=== PATIENT | female | born 1945 | race Caucasian/White ===

== ENCOUNTER 2023-12-15 05:17 | Inpatient (IN) | payer MEDICARE, OTHER, SELFPAY ==
[2023-12-14 21:13] VITALS: BP 124/56
[2023-12-14 21:50] LABS: % Eosinophils 0.7 % (0-6); % Immature Granulocytes 0.5 % (0-0.5); % Lymphocytes 13.7 % (20.5-51.1); % Monocytes 17.7 % (1.7-9.3); % Neutrophils 67.4 % (42.2-75.2); Absolute Lymphocytes 0.8 10^3/uL (1.2-3.4); Absolute Neutrophils 3.7 10^3/uL (1.4-6.5); Mean Corp Hgb Conc. 34.3 g/dL (33.0-37.0); Mean Corpuscular Hgb 28.1 pg (27.0-31.0); Mean Platelet Volume 8.5 fL (7.4-10.4); Nucleated Red Blood Cells % 0 %; Platelet Count 244 10^3/uL (130-400); Red Blood Cell Count 4.27 10^6/uL (4.20-5.40); Red Cell Dist. Width 13.7 % (11.5-14.5); White Blood Cell Count 5.5 10^3/uL (4.8-10.8)
[2023-12-14 21:56] VITALS: BP 141/63; BMI 23.0
[2023-12-14 22:02] LABS: ALT (SGPT) 17 U/L (0-35); AST (SGOT) 30 U/L (14-36); Albumin 3.3 g/dl (3.5-5.0); Alkaline Phosphatase 149 U/L (38-126); Blood Urea Nitrogen 18 mg/dl (7-17); Calcium 8.7 mg/dl (8.4-10.2); Carbon Dioxide 32 mmol/L (22-30); Chloride 92 mmol/L (98-107); Glucose 118 mg/dl (70-99); Potassium 3.5 mmol/L (3.5-5.1); Sodium 131 mmol/L (135-145); Total Bilirubin 0.5 mg/dl (0.2-1.3); eGFR > 60.00
--- NOTE | 2023-12-14 22:10 | ED.GENMED ---
History of Present Illness
<JADEN Hirsch - Last Filed: 12/14/23 22:37>
General
Chief Complaint: Abdominal Pain
Source: patient
Exam Limitations: none
Time Seen by Provider: 12/14/23 22:08
Nursing documentation reviewed up to this point in time: agreed with
Travel History
Have you had any contact with someone who has COVID-19?: No
Do you have any symptoms of coronavirus? Fever > 100 degrees, chills, cough, shortness of breath, sore throat, loss of taste or smell, muscle aches, or headache?: No
History of Present Illness
History of Present Illness:
Patient is a 78 y/o female with PMH of metastatic lung cancer presenting for abdominal pain x 1 day. Patient states that she has a history of an umbilical hernia for the last 4-5 months. Patient states she will regularly have episodes where the
hernia bulges but it usually resolves itself. Patient admits that this time the bulge has not resolved itself and has had spontaneous episodes of pain at the area of the bulge. Patient admits that she noticed the bulge initially during the day and
then felt it continue to enlarge without going back down. Patient states the pain is not sharp and it comes and goes. Patient denies any previous episodes where the hernia was not able to go back down. Patient denies surrounding swelling, chills,
fever, ROE, CP, or SOB that has changed, N/V/D/C. Patient is currently getting treatment for metastatic lung cancer with her last round of chemo being 2 weeks ago. Patient has a history of gallbladder removal. Patient denies any smoke or alcohol use
in the last 48 hours. Patient is on Xerelto.
Past History
<JADEN Hirsch - Last Filed: 12/14/23 22:37>
Past History
ED Past Medical History: GERD, HTN, Hypothyroidism and Psychiatric (Depression)
ED Past Surgical History: Bowel resection, Cholecystectomy, Orthopedic (Braxton knee replacements), Urological (Bladder sling) and Other (Right Lumpectomy, Cataracts, Lung resection mid and lower lobe right)
Social History
Tobacco: Former smoker
Alcohol: None
Personal:
Living: with family
Review of Systems
<ST JoycelynKY - Last Filed: 12/14/23 22:37>
Review of Systems
Constitutional: Reports no symptoms
EENT: Reports no symptoms
Respiratory: Reports no symptoms
Cardiac: Reports no symptoms
ABD/GI: Reports abdominal pain and other (bulge in abdomen )
: Reports no symptoms
Musculoskeletal: Reports no symptoms
Neurological: Reports no symptoms
Endocrine: Reports no symptoms
Hematologic/Lymphatic: Reports no symptoms
Psychiatric: Reports no symptoms
Phy Exam
<Ivone Randhawaon [facility] - Last Filed: 12/14/23 22:37>
General Physical Exam
General Presentation: well appearing and no apparent distress
General Skin: warm and dry
General Habitus: normal
General Mental: alert
General Hydration: appears well hydrated
ENT Exam
ENT Exam: EOMI, pharynx normal, neck supple and normocephalic
Eye Exam
Eye Exam: PERRL, cornea clear and conjunctiva normal
Cardiovascular Exam
Cardiovascular Exam: regular rate/rhythm, no edema, no murmur and normal peripheral pulses
Pulmonary Exam
Pulmonary Exam: lungs clear, no respiratory distress, no rales, no crackles, no rhonchi, no stridor, no wheezing and no cough
Gastrointestinal Exam
Gastrointestinal Exam: no pulsatile mass, non distended, no bruit and other (palpable mass in lower abdomen that was non tender, mass was firm to palpation)
Neurological Exam
Neurological Exam: alert, oriented x3, no motor deficits and speech normal
Musculoskeletal Exam
Musculoskeletal Exam: full ROM and no edema
Skin Exam
Skin Exam: normal color, warm/dry, no rash and no petechia
Psychiatric Exam
Psychiatric Exam: normal mood/affect
<Deonte Muro DO - Last Filed: 12/15/23 02:44>
Physical Exam
Physical Exam:
Physical Exam
General: no apparent distress, not acutely ill
Neck: supple.
Heart: s1/s2 regular rate and rhythm, no murmur. equal radial pulses.
Lungs: no acute respiratory distress. clear bilaterally
Abdomen: Soft, 4 cm circular hard but not tender area inferolateral to umbilicus no skin changes no warmth no inguinal lymphadenopathy
Neuro: alert and oriented. no focal neurological deficits
Skin: no rash
Psychiatric: well kept. interactive and cooperative
Extremities: no edema.
Course
<ST JoycelynPA - Last Filed: 12/14/23 22:37>
Orders/Labs/Results
Orders:
Orders
12/14/23 21:42
CMP [Comprehensive Metabolic Panel] Urgent
Complete Blood Count/With Diff Urgent
12/14/23 22:52
CT Abd/pelvis W Iv Cont Urgent
Comment:
Reason For Exam: pain hernia vs met
0.9% Sodium Chloride 1000 ml [Nss] 1,000 ml IV BOLUS
12/15/23 01:38
Tramadol HCl [Ultram] 50 mg PO NOW STA
12/15/23 02:09
HYDROmorphone [Dilaudid] 0.5 mg IV NOW STA
Ondansetron Injectable [Zofran] 4 mg IV NOW STA
Abnormal Lab Results
12/14/23
21:42
Hct 35.0 L %
(37.0-47.0)
Absolute Lymphs (auto) 0.8 L 10^3/uL
(1.2-3.4)
Absolute Monos (auto) 1.0 H 10^3/uL
(0.1-0.6)
Lymphocytes % 13.7 L %
(20.5-51.1)
Monocytes % 17.7 H %
(1.7-9.3)
Sodium 131 L mmol/L
(135-145)
Chloride 92 L mmol/L
(98-107)
Carbon Dioxide 32 H mmol/L
(22-30)
BUN 18 H mg/dl
(7-17)
Creatinine 0.5 L mg/dL
(0.6-1.0)
Glucose 118 H mg/dl
(70-99)
Alkaline Phosphatase 149 H U/L
(38-126)
Total Protein 6.0 L g/dl
(6.3-8.2)
Albumin 3.3 L g/dl
(3.5-5.0)
12/14/23 21:42
12/14/23 21:42
Vital Signs
Initial and Last Documented VS:
Initial Vital Signs
Temp Pulse Resp BP Pulse Ox
97.5 F 56 24 124/56 98
12/14/23 21:13 12/14/23 21:13 12/14/23 21:13 12/14/23 21:13 12/14/23 21:13
Last Documented Vital Signs
Temp Pulse Resp BP Pulse Ox
97.5 F 56 24 147/93 96
12/14/23 21:13 12/14/23 21:13 12/14/23 21:13 12/15/23 02:00 12/15/23 02:00
Joaolt;Deonte Muro, DO - Last Filed: 12/15/23 02:44>
Orders/Labs/Results
Orders:
Orders
12/14/23 21:42
CMP [Comprehensive Metabolic Panel] Urgent
Complete Blood Count/With Diff Urgent
12/14/23 22:52
CT Abd/pelvis W Iv Cont Urgent
Comment:
Reason For Exam: pain hernia vs met
0.9% Sodium Chloride 1000 ml [Nss] 1,000 ml IV BOLUS
12/15/23 01:38
Tramadol HCl [Ultram] 50 mg PO NOW STA
12/15/23 02:09
HYDROmorphone [Dilaudid] 0.5 mg IV NOW STA
Ondansetron Injectable [Zofran] 4 mg IV NOW STA
Abnormal Lab Results
12/14/23
21:42
Hct 35.0 L %
(37.0-47.0)
Absolute Lymphs (auto) 0.8 L 10^3/uL
(1.2-3.4)
Absolute Monos (auto) 1.0 H 10^3/uL
(0.1-0.6)
Lymphocytes % 13.7 L %
(20.5-51.1)
Monocytes % 17.7 H %
(1.7-9.3)
Sodium 131 L mmol/L
(135-145)
Chloride 92 L mmol/L
(98-107)
Carbon Dioxide 32 H mmol/L
(22-30)
BUN 18 H mg/dl
(7-17)
Creatinine 0.5 L mg/dL
(0.6-1.0)
Glucose 118 H mg/dl
(70-99)
Alkaline Phosphatase 149 H U/L
(38-126)
Total Protein 6.0 L g/dl
(6.3-8.2)
Albumin 3.3 L g/dl
(3.5-5.0)
12/14/23 21:42
12/14/23 21:42
Vital Signs
Initial and Last Documented VS:
Initial Vital Signs
Temp Pulse Resp BP Pulse Ox
97.5 F 56 24 124/56 98
12/14/23 21:13 12/14/23 21:13 12/14/23 21:13 12/14/23 21:13 12/14/23 21:13
Last Documented Vital Signs
Temp Pulse Resp BP Pulse Ox
97.5 F 56 24 147/93 96
12/14/23 21:13 12/14/23 21:13 12/14/23 21:13 12/15/23 02:00 12/15/23 02:00
<Deonte Muro DO - Last Filed: 12/15/23 02:44>
Other
Indication for procedure:: Symptomatic umbilical hernia
Procedure completed by: Jina
Consent form signed: No
Additional Procedure:
Verbal consent timeout ice pack reverse Trendelenburg Dilaudid analgesia multiple times with direct pressure
Unable to reduce the hernia patient has a fair amount of pain
Attempts aborted
<JADEN Hirsch - Last Filed: 12/14/23 22:37>
MDM/Problems Addressed
Differential Diagnosis Includes:
strangulated hernia
incarcerated hernia
metastatic cancer complication
MDM/Problems Addressed:
abdominal pain
Chronic conditions affecting care: Cancer (lung)
<JADEN Hirsch - Last Filed: 12/14/23 22:37>
*Critical Care Note
Total Time (30-74mins, 75-104mins- exclusive of procedures): Not Applicable
<Deonte Muro DO - Last Filed: 12/15/23 02:44>
Update Note
Update Note:
2:30 AM able to reduce hernia,
Reviewed with hospitalist and general surgery, will keep in the ER reattempt around 6 AM for reduction
Keep her n.p.o.
ED Attending Note
<JADEN Hirsch - Last Filed: 12/14/23 22:37>
-
Portions of this chart may have been created with voice recognition software.� Occasional wrong word or��sound alike� substitutions may have occurred due to the inherent limitations of voice recognition software.
<Deonte Muro, DO - Last Filed: 12/15/23 02:44>
ED Attending Note
Patient seen and examined by attending physician: Yes
I performed the substantive portion of visit, reviewed & personally made and approve the management plan that is documented in note by myself or PEDRO.: Yes
ED Attending Note:
Seen with student examined independently, metastatic lung cancer patient on chemo and immunotherapy at [facility] but not particularly tender area around her umbilicus that it was a hernia no vomiting moving her bowels okay no fever patient is
well-appearing not acutely ill not sure this represents a hernia perhaps a metastasis will check CT scan to define anatomy
Discharge Plan
Departure
Prescriptions:
No Action
metoprolol succinate 50 mg Tablet Extended Release 24 Hr
50 mg PO BID
prochlorperazine maleate 10 mg Tablet
10 mg PO QID PRN (Reason: nausea/vomiting)
Hold Instructions: Resume on 08/25/23. Discuss with your primary care provider before deciding to resume this medication.
lidocaine-prilocaine 2.5-2.5 % Cream
1 applic TOPICAL DAILYPRN PRN (Reason: mild pain)
acetaminophen 650 mg Tablet Extended Release
650 mg PO DAILY
levothyroxine 125 mcg Tablet
125 mcg PO DAILY
omeprazole 20 mg Capsule,Delayed Release(Dr/Ec)
20 mg PO DAILY
Hold Instructions: Resume on 08/25/23. This medication is on hold due to low magnesium. Please check with your primary care provider if and when you can resume this medication.
gabapentin 100 mg Capsule
300 mg PO BID
oxybutynin chloride 5 mg Tablet
5 mg PO DAILY
Hold Instructions: Resume on 08/18/23. Discuss this with your primary care physician before deciding whether or not to resume this medication
escitalopram oxalate 10 mg Tablet
10 mg PO DAILY
bupropion HCl 300 mg Tablet Extended Release 24 Hr
300 mg PO DAILY
Xarelto 15 mg Tablet
15 mg PO QPM
Magic Mouthwash
5 ml PO Q6HPRN PRN (Reason: mouth sores)
furosemide 40 mg Tablet
40 mg PO DAILY Qty: 30 1RF
levofloxacin 500 mg Tablet
500 mg PO DAILY Qty: 6 0RF
Rx Instructions:
Start date is August 05, 2023
magnesium oxide 500 mg Tablet
500 mg PO DAILY Qty: 30 0RF
valsartan 320 mg Tablet
160 mg PO DAILY Qty: 30 1RF
Referrals:
UNKNOWN - PT DOES,NOT KNOW [Family Provider] -
Interventions
Interventions:
*Risk Screen - Suicide Last Done: 12/14/23 21:56
*General Assessment Last Done: 12/14/23 21:56
ED- Fall Risk Assessment Last Done: 12/14/23 21:56
*ED COVID-19 Vaccine History Last Done: 12/14/23 21:56
BF-Pyulxt-Wfuqyvclyd Assessment Last Done: 12/14/23 21:56
[2023-12-14 23:00] VITALS: BP 131/75
[2023-12-15] VITALS (18 sets, daily range): BP systolic 104–150; BP diastolic 61–110
[2023-12-15] MEDS: NSS 1000 IV ×2 (00:01→05:43)
[2023-12-15] MEDS: ULTRAM 50 MG PO (01:42)
[2023-12-15] MEDS: DILAUDID 0.5 MG IV (02:13)
[2023-12-15] MEDS: ZOFRAN 4 MG IV ×2 (02:13→10:40)
--- NOTE | 2023-12-15 03:02 | HPS.HSE ---
Family Physician
-
Family Physician: NOT KNOW UNKNOWN - PT DOES
Chief Complaint
-
abdominal paiin associated with umbilical hernia
History of Present Illness
78M HX with known periumbilical hernia, metastatic NSCL Ca , HX HFpEF, Prx AF on Xarelto pw acute intermittent colicky abdominal pain x 1 day. Reports intemittent bulging of periumbilical hernia usually resolves itself.
He came to ER coz noted abdominal pain around the hernia which has not resoled like before.
Denied N/V
Medical History
Past Medical History
Past Medical History: Reports Other
Additional Past Medical History:
Lung Cancer s/p right lower lobe lobectomy
Right pleural effusion
HFpEF
Anemia
HX lateral right fourth and fifth rib fractures
Paroxysmal Atrial fibrillation on Eliquis
Hypothyroidism
Essential hypertension
HX breast cancer - treated with lumpectomy/radiation
Overactive bladder
Anxiety/depression
Past Surgical History: Reports Other
Additional Past Surgical History:
Bladder Sling Surgery
Right Lumpectomy
Right Middle / Lower Lobectomies (February 2023)
Cholecystectomy
Tubal Ligation
Bilateral TKA
Social History
Tobacco: Former Smoker (Quit smoking in 1988. Approx 20 pack years total use.))
Alcohol: None
Drug: None
Family History
Family History: Other (Father: CVA, Esophageal Cancer Sister: DM))
Allergies / Home Medications
Allergies reflects when Allergies were last updated in [email or web address].
Home Medications with original date entered in [email or web address]
Allergy/Medication List:
Allergies
Allergy/AdvReac Type Severity Reaction Status Date / Time
morphine Allergy Unknown Verified 12/14/23 21:17
Penicillins Allergy Rash Verified 12/14/23 21:17
Home Medications
Magic Mouthwash 5 ml PO Q6HPRN PRN mouth sores 08/01/23
acetaminophen 650 mg tablet,extended release 650 mg PO DAILY Pain 08/01/23
bupropion HCl 300 mg 24 hr tablet, extended release 300 mg PO DAILY Depression 08/01/23
escitalopram oxalate 10 mg tablet 10 mg PO DAILY Depression 08/01/23
gabapentin 100 mg capsule 300 mg PO BID Neurological Condition 08/01/23
levothyroxine 125 mcg tablet 125 mcg PO DAILY Thyroid 08/01/23
lidocaine-prilocaine 2.5 %-2.5 % topical cream 1 applic topical DAILYPRN PRN mild pain 08/01/23
metoprolol succinate 50 mg tablet,extended release 24 hr 50 mg PO BID Heart Failure 08/01/23
omeprazole 20 mg capsule,delayed release 20 mg PO DAILY Gastrointestinal Issue 08/01/23
oxybutynin chloride 5 mg tablet 5 mg PO DAILY Urinary Issue 08/01/23
prochlorperazine maleate 10 mg tablet 10 mg PO QID PRN nausea/vomiting 08/01/23
rivaroxaban 15 mg tablet (Xarelto) 15 mg PO QPM Blood Clot Prevention/Tx 08/01/23
furosemide 40 mg tablet 40 mg PO DAILY #30 tabs 08/04/23
levofloxacin 500 mg tablet 500 mg PO DAILY #6 tabs 08/04/23
magnesium oxide 500 mg PO DAILY #30 tabs 08/04/23
valsartan 320 mg tablet 160 mg PO DAILY Blood Pressure #30 tabs 08/04/23
Review of Systems
-
Constitutional: Reports No Symptoms
EENT: Reports No Symptoms
Respiratory: Reports No Symptoms
Cardiac: Reports No Symptoms
Abdomen/GI: Reports See HPI and Abdominal Pain; Denies Nausea, Vomiting or Diarrhea
: Reports No Symptoms
Musculoskeletal: Reports No Symptoms
Skin: Reports No Symptoms
Neurological: Reports No Symptoms
Endocrine: Reports No Symptoms
Hematologic/Lymphatic: Reports No Symptoms
Psych: Reports No Symptoms
Physical Exam
Vital Signs
Vital Signs
Temp Pulse Resp BP Pulse Ox
97.5 F 56 24 147/93 96
12/14/23 21:13 12/14/23 21:13 12/14/23 21:13 12/15/23 02:00 12/15/23 02:00
Physical Exam
General: No Apparent Distress, Comfortable, Conversant and Other (see below )
HEENT: NormoCephalic, Anicteric and Moist mucous membranes
Respiratory: Clear; No Wheezes, Rales or Rhonchi
Cardiac: S1/S2 and Regular Rhythm
Breast: Deferred by me
GI: Other (Palpable very firm mass in lower abdomen- non tender)
Rectal: Deferred by Provider
Genito-urinary: Deferred by me
Musculoskeletal: No Edema
Skin: Warm
Neuro: AO x 3 and Nonfocal/grossly intact
Psych: Calm
Laboratory Results
-
12/14/23 21:42
12/14/23 21:42
Laboratory Results
Total Bilirubin 0.5 mg/dl (0.2-1.3) 12/14/23 21:42
AST 30 U/L (14-36) 12/14/23 21:42
ALT 17 U/L (0-35) 12/14/23 21:42
Alkaline Phosphatase 149 U/L (38-126) H 12/14/23 21:42
Data Reviewed
-
CT Scan: Report Reviewed by me
Lab Data: Labs Reviewed by me
Old Records: Reviewed
Impression/Plan
-
Reviewed VS: unremarkable
Data
nl WCC Hgb 12 Plt 245
na 11 Cl 92 CO2 [address] AP
- segment prox ascending colon/cecum with stool extending through the periumblical hernia with neckof 3cm
- No definitive obstruction
- mild wall thickening but not stranding
Last hospitalist admission: 08/01/23 - 08/04/23 Acute hypoxic respiratory insufficiency
ASSESSMENT & PLAN
Pending Rx reconciliation
Symptomatic periumbilical hernia: Failed attempted reduction by ER
- No definitive obstruction , mild wall thickening but not stranding
- last dose of Xarelto was Sun around 11 pm ( Xarelto half life is about 10hrs for adult)
- Held Xarelto
- Surgery consulted - plan is GS will evaluate in AM at ER
- Keep NPO except Meds and IVF
Prx AF on xarelto
- Held Xarelto in case reduction in the OR is indicated
- cont. Metoprol sux
HX HFpEF
Primary HTN
- cont. Valsartan, Metoprolol sux
NSCLCa HX
- f/u [facility]
- Last chemo was weeks ago
Hypothyroidism
- cont. LT4
Anxiety / Depression
- cont. outpatient medications.
Right Sided Rib Fractures (4/5)
- ? acuity / timing. No recent trauma or injury per patient.
- No significant pain with deep breathing, etc.
- Follow for any new complaints / issues.
DVT Prophylaxis: SCD while holding Xarelto
Full code
Obs MS
[2023-12-15] MEDS: DILAUDID 0.25 MG IV ×2 (05:48→21:02)
[2023-12-15 06:44] LABS: INR 1.07; PT 13.8 Sec (11.4-14.6)
--- NOTE | 2023-12-15 07:15 | CON.GS ---
Medical History
-
Chief Complaint: Krystyna-umbilical pain
History of Present Illness:
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
mastectomy and radiation, s/p bilateral TKA, s/p laparoscopic cholecystectomy, s/p laparoscopic assisted partial colectomy for diverticulitis. Ms. Enriquez states that she has had a known periumbilical/incisional hernia for months. Difficult to
determine if this was reducible, though she had no pain or discomfort associated with this bulge. Over the past 24 hours she has noticed increased size of her bulge as well as abdominal pain. She denies any nausea or vomiting. No fevers or
chills. She continues to pass flatus and stools.
Of note, she receives her oncologic care at [facility]. She is currently on an immunologic drug (unknown name), last infusion approximately 1 week ago.
Past Medical History
Past Medical History: Cancer (Lung and breast), CHF, GERD, HTN and Hypothyroidism
Past Surgical History: Bowel Resection (Laparoscopic-assisted partial colectomy for diverticulitis), Cholecystectomy, Gynecological (Bladder sling, tubal ligation) and Orthopedic (Bilateral TKA)
Social History
Tobacco: Former Smoker
Alcohol: None
Drug: None
Living: With Family
Family History
Family History: Reviewed & Not Pertinent
Allergies / Home Medications
Allergy/AdvReac Type Severity Reaction Status Date / Time
morphine Allergy Unknown Verified 12/14/23 21:17
Penicillins Allergy Rash Verified 12/14/23 21:17
Medication Instructions Recorded Confirmed Type
Magic Mouthwash 5 ml PO Q6HPRN PRN mouth sores 08/01/23 12/15/23 History
acetaminophen 650 mg 650 mg PO DAILY Pain 08/01/23 12/15/23 History
tablet,extended release
bupropion HCl 300 mg 24 hr tablet, 300 mg PO DAILY Depression 08/01/23 12/15/23 History
extended release
escitalopram oxalate 10 mg tablet 10 mg PO DAILY Depression 08/01/23 12/15/23 History
gabapentin 100 mg capsule 300 mg PO BID Neurological 08/01/23 12/15/23 History
Condition
levothyroxine 125 mcg tablet 125 mcg PO DAILY Thyroid 08/01/23 12/15/23 History
lidocaine-prilocaine 2.5 %-2.5 % 1 applic topical DAILYPRN PRN mild 08/01/23 12/15/23 History
topical cream pain
metoprolol succinate 50 mg 50 mg PO BID Heart Failure 08/01/23 12/15/23 History
tablet,extended release 24 hr
omeprazole 20 mg capsule,delayed 20 mg PO DAILY Gastrointestinal 08/01/23 12/15/23 History
release Issue
oxybutynin chloride 5 mg tablet 5 mg PO DAILY Urinary Issue 08/01/23 12/15/23 History
prochlorperazine maleate 10 mg 10 mg PO QID PRN nausea/vomiting 08/01/23 12/15/23 History
tablet
rivaroxaban 15 mg tablet (Xarelto) 15 mg PO QPM Blood Clot 08/01/23 12/15/23 History
Prevention/Tx
furosemide 40 mg tablet 40 mg PO DAILY #30 tabs 08/04/23 12/15/23 Rx
levofloxacin 500 mg tablet 500 mg PO DAILY #6 tabs 08/04/23 12/15/23 Rx
magnesium oxide 500 mg PO DAILY #30 tabs 08/04/23 12/15/23 Rx
valsartan 320 mg tablet 160 mg PO DAILY Blood Pressure #30 08/04/23 12/15/23 Rx
tabs
Review of Systems
-
A 10 point review of systems was completed, and was negative except as per HPI.
Physical Exam
Vital Signs
Temp Pulse Resp BP Pulse Ox
97.5 F 104 14 104/76 96
12/14/23 21:13 12/15/23 06:41 12/15/23 06:41 12/15/23 06:41 12/15/23 02:00
12/14/23 12/15/23 12/16/23
06:59 06:59 06:59
Actual Weight 60.7 kg
Body Mass Index (BMI) 23.0
Lab Results
12/14/23 21:42
12/14/23 21:42
WBC 5.5 10^3/uL (4.8-10.8) 12/14/23 21:42
Hgb 12.0 g/dL (12.0-16.0) 12/14/23 21:42
Hct 35.0 % (37.0-47.0) L 12/14/23 21:42
Plt Count 244 10^3/uL (130-400) 12/14/23 21:42
Abs Immat Gran (auto) 0.0 10^3/uL (0-0.05) 12/14/23 21:42
Neutrophils % 67.4 % (42.2-75.2) 12/14/23 21:42
Physical Exam
General: Well Developed, Well Nourished and No Apparent Distress
HEENT: Normocephalic and Anicteric
Respiratory: Non Labored Respirations
Cardiac: Irregular Rhythm
GI: Soft, Non Distended, Tender (Overlying hernia), Incisions (Well healed), Obese and Other (Incisional hernia measuring 5 cm, firm, no skin changes, unable to reduce, fascial defect 3 cm, tender to palpation)
Musculoskeletal: No Edema
Skin: Warm and Dry
Neuro: Nonfocal/Grossly Intact
Data Reviewed
-
CT Scan: Image Personally Visualized and interpreted and Report Reviewed by me
Labs: Labs Reviewed by me
Assessment / Plan
-
Patient is a 78 yo F p/w incarcerated possibly strangulated ventral incisional hernia containing cecum
The natural history and pathophysiology of hernias was discussed. CT scan imaging was reviewed. Given the firmness and pain, as well as presence of bowel, and concern for incarceration or strangulation recommend urgent operative intervention.
Patient is at increased risk for operative complications given her general medical condition, coagulopathy, and immunosuppression. A nonoperative approach would likely result in bowel obstruction, ischemia, and potential perforation with sepsis.
Plan for an exploratory laparotomy, possible bowel resection, and ventral incisional hernia repair. The procedure itself, as well as the risks, benefits, and alternatives was discussed. Specifically, we discussed the risks of bleeding (increased
risk with Xarelto), infection (increased risk with immunosuppression), injury to surrounding structures, anastomotic leak, wound complications, recurrent hernia, and general anesthetic complications. Typical postprocedural recovery including pain
management, the need for 4 weeks no heavy lifting, and the delayed time to recovery given her age and general medical condition was discussed. All questions answered. Consent signed.
Attempted to call daughter for an update, no response.
-- Exploratory laparotomy, possible bowel resection, and ventral incisional hernia repair
-- NPO, IVF
-- Antibiotics: Levaquin and Flagyl
-- Continue to hold Xarelto
-- Admit to hospital service postoperatively
--- NOTE | 2023-12-15 07:28 | W.SUR.PREOP ---
Pre-Operative Surgical Note
-
I have examined this patient prior to the performance of the scheduled procedure.
The patient's condition is unchanged from the time of the current History and
Physical and the patient is able to undergo the scheduled procedure.
--- NOTE | 2023-12-15 09:23 | W.IMMPOSTOP ---
Addendum entered and electronically signed by Jose E Diaz MD 12/15/23 17:31:
Dic#[id number]
Original Note:
Surgical Immed Post Op Note
-
Primary Surgeon: Emily
Assisting Surgeon: Ashley
Pre-op Diagnosis: Incarcerated ventral incisional hernia
Post-op Diagnosis: Incarcerated ventral incisional hernia
Procedure Performed: Exploratory laparotomy, partial cecectomy and appendectomy, primary repair of ventral incisional hernia
Anesthesia Type: General
Specimen / Cultures:
1. Partial cecectomy and appendectomy
Estimated Blood Loss: 3 cc
Complications: None
Operative Findings:
1. Viable portion of cecum, rock hard stool within hernia contents
2. Appendectomy and partial cecectomy with MARINA 100 blue load stapler, IC valve intact
3. Fascia defect of hernia 3 cm, primary closure with #1 PDS
--- NOTE | 2023-12-15 14:03 | W.PN.HOSP.TC ---
Today's Communication/Plan
-
EKG
CXR
Post op care
Assessment / Plan
Assessment / Plan
78-year-old female likely hernia admitted with abdominal pain. Seen in PACU post surgery.
Denies any shortness of breath or chest pain awake alert oriented
Cardiovascular system S1-S2 appreciated
Chest clear to auscultation
Abdomen -laparotomy wound with mild shadowing on the dressing
No bowel sounds are present
No pedal edema
Neuro appears to be nonfocal exam
# Incarcerated ventral hernia-exploratory laparotomy, partial seek ectomy and appendectomy, primary repair of ventral incisional hernia by 12/15/2023
Okay for p.o. medicines
Xarelto on hold.
High risk for bleeding as the last dose of Xarelto was 12/13/2023 evening
Monitor closely
# Hyponatremia-hypertonic fluid while n.p.o.
Follow sodium if continues to be lower needs serum and urine osmolality and urine sodium tomorrow
# Chronic heart failure with preserved ejection fraction-continue with statin, metoprolol
Hold Lasix today.
Echo 08/03/2020 LV size function. EF 66%. Stage II diastolic dysfunction. Thickened mitral valves. Mitral valve-moderate MR. Mild TR. Pulmonary artery pressure 48 mmHg.
# Paroxysmal atrial fibrillation-continue beta-juan m. Hold Xarelto until cleared by surgeon
# Depression/anxiety-continue Wellbutrin
Lexapro has not been restarted
# Non-small cell lung cancer s/p R lower lobectomy and chemotherapy followed at [facility].
Last immunotherapy was a week ago.
Multiple hepatic metastasis, bilateral adrenal nodules concerning for adrenal metastasis.
Get records from [place]
# Small right pleural effusion-check chest x-ray

# Hypertension-metoprolol and valsartan
# Hypothyroidism-continue Synthroid
# Overactive bladder-oxybutynin
# Wedge-shaped focus of hypoattenuation within the spleen, which may represent prior splenic infarct or less likely splenic metastasis.
# History of diverticulitis status post colon resection
# History of breast cancer status postlumpectomy/radiation
# History of migraines
# Sleep apnea-CPAP intolerant
# Hypoalbuminemia
# DDD/Arthritis
# Ex Smoker
# DVT Prophylaxis-Lovenox
# Full CODE
D/W MOBILE NURSE
Called Daughter Rylee - Went to message - [employer] call tomorrow.
Anticipated Discharge: > 48 hours
Subjective/Interval History
-
Date of Service: December 15, 2023
Objective Data
-
Labs:
Laboratory Results
12/15/23
05:41
PT 13.8
INR 1.07
Vital Signs:
Vital Signs
Temp Pulse Resp BP Pulse Ox
98.2 F 115 16 135/69 97
12/15/23 13:48 12/15/23 13:48 12/15/23 13:48 12/15/23 13:48 12/15/23 13:48
I&O
12/14/23 12/15/23 12/16/23
06:59 06:59 06:59
Intake Total 400 / 400
Output Total 200 / 200
Balance 200 / 200
--- NOTE | 2023-12-15 16:00 | PTCARENOTE ---
pt admitted to room 2100 from the PACU at 1345. pt arrived via bed. pt oriented to room, call franklin and plan of care. pt drowsy but easily arousable. midline abdominal incision w/aqua cell dressing with old drainage noted. afib w/HR in 110's on
telemetry. will observe.
[2023-12-15] MEDS: D5/0.9% SODIUM CHLORIDE 1000 IV (16:06)
[2023-12-15] MEDS: WELLBUTRIN XL (24 hour extended release) 300 MG PO (16:06)
[2023-12-15] MEDS: MAGNESIUM OXIDE 500 MG PO (16:06)
[2023-12-15] MEDS: PROTONIX IV 40 MG IV (16:07)
[2023-12-15] MEDS: NSS (PRESERVATIVE FREE) 10 ML IV (16:07)
[2023-12-15] MEDS: TOPROL XL 50 MG PO (20:35)
[2023-12-15] MEDS: NEURONTIN 300 MG PO (20:35)
[2023-12-16 03:26] VITALS: BP 123/82
[2023-12-16] MEDS: DILAUDID 0.25 MG IV ×3 (03:29→20:05)
[2023-12-16 05:12] LABS: Hematocrit 34.3 % (37.0-47.0); Hemoglobin 11.4 g/dL (12.0-16.0); Mean Corp Hgb Conc. 33.2 g/dL (33.0-37.0); Mean Corpuscular Hgb 28.3 pg (27.0-31.0); Mean Corpuscular Volume 85.1 fL (81.0-99.0); Platelet Count 253 10^3/uL (130-400); Red Blood Cell Count 4.03 10^6/uL (4.20-5.40); Red Cell Dist. Width 14.1 % (11.5-14.5); White Blood Cell Count 9.1 10^3/uL (4.8-10.8)
[2023-12-16 05:20] VITALS: BMI 23.8
[2023-12-16 05:39] LABS: Blood Urea Nitrogen 10 mg/dl (7-17); Carbon Dioxide 29 mmol/L (22-30); Chloride 97 mmol/L (98-107); Estimated Creatinine Clearance 67 ml/min; Glucose 95 mg/dl (70-99); Magnesium 1.3 mg/dl (1.6-2.3); Potassium 3.6 mmol/L (3.5-5.1); Sodium 132 mmol/L (135-145); eGFR > 60.00
[2023-12-16] MEDS: SYNTHROID 125 MCG PO ×2 (06:06)
[2023-12-16 07:00] VITALS: BP 116/66
--- NOTE | 2023-12-16 08:03 | W.PN.HOSP.TC ---
Addendum entered and electronically signed by Derick Gomez MD 12/16/23 17:44:
updated daughter over the phone today
Original Note:
Today's Communication/Plan
-
cont postop care
Assessment / Plan
Assessment / Plan
78-year-old female likely hernia admitted with abdominal pain found incarcerated hernia s/p surgery.
Physical exam:
General: Well Developed, Well Nourished and No Apparent Distress
HEENT: Normocephalic, Atraumatic and Moist Mucous Membranes
Respiratory: Clear to Auscultation; Negative Wheezes, Rales or Rhonchi
Cardiac: Regular Rhythm and S1/S2
GI: Soft, Mild Tender and Nondistended, postop findings, BS hypoactive
Musculoskeletal: No Clubbing, No Cyanosis and No Edema
Neuro: Awake, Alert and Oriented
Psych: Calm
A/P:
# Incarcerated ventral hernia-exploratory laparotomy, partial cecectomy and appendectomy, primary repair of ventral incisional hernia by 12/15/2023
Okay for p.o. medicines
Xarelto on hold.
High risk for bleeding as the last dose of Xarelto was 12/13/2023 evening
Mild drift down to hemoglobin from 12 down 11.4 but no signs of active bleeding
Monitor closely
# Hyponatremia-hypertonic/isotonic fluid while n.p.o.
improving from 131 up to 132
Follow sodium
# Chronic heart failure with preserved ejection fraction-continue with statin, metoprolol
Hold Lasix today.
Echo 08/03/2020 LV size function. EF 66%. Stage II diastolic dysfunction. Thickened mitral valves. Mitral valve-moderate MR. Mild TR. Pulmonary artery pressure 48 mmHg.
# Paroxysmal atrial fibrillation-continue beta-juan m. Hold Xarelto until cleared by surgeon
# Depression/anxiety-continue Wellbutrin
Lexapro has not been restarted
# Non-small cell lung cancer s/p R lower lobectomy and chemotherapy followed at [facility].
Last immunotherapy was a week ago.
Multiple hepatic metastasis, bilateral adrenal nodules concerning for adrenal metastasis.
Get records from [place]
# Small right pleural effusion-check chest x-ray

# Hypertension-metoprolol and valsartan
# Hypothyroidism-continue Synthroid
# Overactive bladder-oxybutynin
# Wedge-shaped focus of hypoattenuation within the spleen, which may represent prior splenic infarct or less likely splenic metastasis.
# History of diverticulitis status post colon resection
# History of breast cancer status postlumpectomy/radiation
# History of migraines
# Sleep apnea-CPAP intolerant
# Hypoalbuminemia
# DDD/Arthritis
# Ex Smoker
# DVT Prophylaxis-Lovenox
# Full CODE
Anticipated Discharge: 24 - 48 hours
Subjective/Interval History
-
Date of Service: December 16, 2023
Patient with abdominal discomfort postsurgical site, no nausea or vomiting. Has not passed any gases today. Afebrile
Objective Data
-
Labs:
Laboratory Results
12/16/23
04:31
WBC 9.1
Hgb 11.4 L
Hct 34.3 L
Plt Count 253
Sodium 132 L
Potassium 3.6
Chloride 97 L
Carbon Dioxide 29
BUN 10
Creatinine 0.5 L
Glucose 95
Calcium 8.0 L
Vital Signs:
Vital Signs
Temp Pulse Resp BP Pulse Ox
98.3 F 112 18 123/82 94
12/16/23 03:26 12/16/23 03:26 12/16/23 03:26 12/16/23 03:26 12/16/23 03:26
I&O
12/15/23 12/16/23 12/17/23
06:59 06:59 06:59
Intake Total 1120 / 1120
Output Total 825 / 825
Balance 295 / 295
Review of Systems
-
All other systems: Reviewed and negative
[2023-12-16] MEDS: NEURONTIN 300 MG PO ×2 (08:20→19:56)
[2023-12-16] MEDS: DITROPAN PO ×2 (08:21→10:31)
[2023-12-16] MEDS: TOPROL XL 50 MG PO ×2 (08:21→19:56)
[2023-12-16] MEDS: MAGNESIUM OXIDE 500 MG PO (08:21)
[2023-12-16] MEDS: DIOVAN PO ×2 (08:21→10:32)
[2023-12-16] MEDS: PROTONIX IV 40 MG IV (08:22)
[2023-12-16] MEDS: NSS (PRESERVATIVE FREE) 10 ML IV (08:22)
[2023-12-16] MEDS: WELLBUTRIN XL (24 hour extended release) 300 MG PO (08:26)
--- NOTE | 2023-12-16 10:16 | CM ---
Addendum entered by Otf Linares 12/16/23 10:36:
Pharmacy is [facility] and PCP is Gricelda Buckley in [place].
Original Note:
Initial assessment completed with patient who lives also in a 1 floor garage apartment on her daughter's property. She has a rollator and RW which she uses and a SC. She does not drive. Recently hired an aide for 3 days a week 3 hours a day to
assist with housekeeping and other chores. Support system is daughter and her . Daughter, Rylee, is HC POA. Patient has had 1 psychiatric hospitalization in 1982 for depression. She had a 3 y/o child, was working and her now ex-
was using drugs. Currently, she has no psychiatric therapy or follow-up. CM offered HH VN
services. She wants to speak with her daughter before deciding. Anticipate Home with no needs vs HH VN.
[2023-12-16 11:15] VITALS: BP 126/82
--- NOTE | 2023-12-16 11:35 | W.PN.GS2 ---
Today's Communication / Plan
-
-- Trial of clears
-- Pain control: Tylenol, Toradol, IV Dilaudid PRN
-- Continue to hold PO therapeutic anticoagulation until 72 hrs post-op and bowel recovery
Assessment / Plan
-
Patient is a 78 yo F POD#1 s/p exploratory laparotomy, partial cecectomy, open primary ventral incisional hernia repair
Recovering well. AVSS (tachycardia with Afib). Labs reviewed.
Acute on chronic A-fib, continue to hold PO anticoagulation
Awaiting ROBF
-- Trial of clears
-- Pain control: Tylenol, Toradol, IV Dilaudid PRN
-- Continue to hold PO therapeutic anticoagulation until 72 hrs post-op and bowel recovery
-- Further care per Hospitalist, appreciate help
Subjective Data
-
Date of Service: December 16, 2023
Denies nausea or emesis. No worsening abdominal pain or distension. No flatus or BM. Minimal ambulation.
Objective Data
-
Intake and Output
12/15/23 12/16/23 12/17/23
06:59 06:59 06:59
Intake Total 1120 / 1120
Output Total 825 / 825
Balance 295 / 295
Intake:
Oral fluids 120 / 120
IV fluids (Total) 1000 / 1000
Normosol 400 / 400
IV piggybacks 0 / 0
Output:
Urine, Cruz 825 / 825
Vital Signs
Temp Pulse Resp BP Pulse Ox
98.2 F 108 18 126/82 93
12/16/23 11:15 12/16/23 11:15 12/16/23 11:15 12/16/23 11:15 12/16/23 11:15
Lab Results
12/16/23 04:31
12/16/23 04:31
Calcium 8.0 mg/dl (8.4-10.2) L 12/16/23 04:31
Magnesium 1.3 mg/dl (1.6-2.3) L 12/16/23 04:31
Total Bilirubin 0.5 mg/dl (0.2-1.3) 12/14/23 21:42
AST 30 U/L (14-36) 12/14/23 21:42
ALT 17 U/L (0-35) 12/14/23 21:42
Alkaline Phosphatase 149 U/L (38-126) H 12/14/23 21:42
Total Protein 6.0 g/dl (6.3-8.2) L 12/14/23 21:42
Albumin 3.3 g/dl (3.5-5.0) L 12/14/23 21:42
Physical Exam
-
Gen: NAD
Abd: soft, incisional tenderness, ND, non-peritoneal, dressing with some mild staining
[2023-12-16] MEDS: D5/0.9% SODIUM CHLORIDE 1000 IV (12:56)
[2023-12-16 15:00] VITALS: BP 115/66
[2023-12-16] MEDS: TORADOL 15 MG IV (16:59)
[2023-12-16] MEDS: LOVENOX 40 MG SC (17:01)
--- NOTE | 2023-12-16 18:26 | PTCARENOTE ---
Patient refused valsartan and oxybutin this AM, stated she did not want to take it anymore. Patient has not voided since grant D/C'd this AM, Dr. Gomez notified, and stated okay and to continue to monitor- stated she may need grant reinsertion if
bladder scan is greater than 450. Last scan at 1820 was 220.
[2023-12-16 19:00] VITALS: BP 112/62
[2023-12-16 23:00] VITALS: BP 126/80
[2023-12-17] VITALS (8 sets, daily range): BP systolic 105–133; BP diastolic 58–82; PULSE 96–98; O2SAT 97; BMI 24.6
--- NOTE | 2023-12-17 06:23 | VATNOTE ---
UNABLE TO OBTAIN A BR FROM L SUBQ PRT. PT REPORTS THIS HAS BEEN AN ON-GOING PROBLEM WITH THE PORT. A PERIPHAERAL IV SITE ESTABLISHED DOCUMETED AND WAITNG FOR CATHFLO ORDER AND DELIVERY FROM PHARMACY TO INSTILL PER PROTOCOL VIA PRT TO RE ESTABLISH
A BLOOD FLOW.PCN AWARE OF SITUATION.
[2023-12-17] MEDS: CATHFLO/ACTIVASE 2 MG IV ×2 (06:37→08:41)
--- NOTE | 2023-12-17 06:43 | VATNOTE ---
CATHFLO ADMINISTERED PER PROTOCOL VIA L SUBQ PRT. PCN AWARE OF INTERVETNION.
--- NOTE | 2023-12-17 07:47 | W.PN.HOSP.TC ---
Today's Communication/Plan
-
Full liquid diet. Postop care.
Assessment / Plan
Assessment / Plan
78-year-old female likely hernia admitted with abdominal pain found incarcerated hernia s/p surgery.
Physical exam:
General: Well Developed, Well Nourished and No Apparent Distress
HEENT: Normocephalic, Atraumatic and Moist Mucous Membranes
Respiratory: Clear to Auscultation; Negative Wheezes, Rales or Rhonchi
Cardiac: Regular Rhythm and S1/S2
GI: Soft, Mild Tender and Nondistended, postop findings, BS hypoactive
Musculoskeletal: No Clubbing, No Cyanosis and No Edema
Neuro: Awake, Alert and Oriented
Psych: Calm
A/P:
# Incarcerated ventral hernia-exploratory laparotomy, partial cecectomy and appendectomy, primary repair of ventral incisional hernia by 12/15/2023
Full liquid diet per surgery today
Xarelto on hold until cleared by surgery.
Can stop IV fluids later today if tolerating oral
Awaiting hemoglobin today due to problems with labs drawn from the port.
Monitor closely
# Hyponatremia-hypertonic/isotonic fluid while little oral intake but can stop soon
improving from 131 up to 132 yesterday
Follow sodium
# Chronic heart failure with preserved ejection fraction-continue with statin, metoprolol
Lasix has been on hold--> we should be able to restart over the next 24 hrs
Echo 08/03/2020 LV size function. EF 66%. Stage II diastolic dysfunction. Thickened mitral valves. Mitral valve-moderate MR. Mild TR. Pulmonary artery pressure 48 mmHg.
# Paroxysmal atrial fibrillation-continue beta-juan m. Hold Xarelto until cleared by surgeon
# Depression/anxiety-continue Wellbutrin
Lexapro has not been restarted--> should be able to restart soon as well
# Non-small cell lung cancer s/p R lower lobectomy and chemotherapy followed at [facility].
Last immunotherapy was a week ago.
Multiple hepatic metastasis, bilateral adrenal nodules concerning for adrenal metastasis.
Get records from [place]
# Small right pleural effusion-check chest x-ray

# Hypertension-metoprolol and valsartan
# Hypothyroidism-continue Synthroid
# Overactive bladder-oxybutynin
# Wedge-shaped focus of hypoattenuation within the spleen, which may represent prior splenic infarct or less likely splenic metastasis.
# History of diverticulitis status post colon resection
# History of breast cancer status postlumpectomy/radiation
# History of migraines
# Sleep apnea-CPAP intolerant
# Hypoalbuminemia
# DDD/Arthritis
# Ex Smoker
# DVT Prophylaxis-Lovenox
# Full CODE
Anticipated Discharge: 24 - 48 hours
Subjective/Interval History
-
Date of Service: December 17, 2023
Patient feels better overall. No gases or bowel movement yet. Afebrile
Objective Data
-
Labs:
Laboratory Results
12/17/23
06:00
WBC Pending
Hgb Pending
Hct Pending
Plt Count Pending
Sodium Pending
Potassium Pending
Chloride Pending
Carbon Dioxide Pending
BUN Pending
Creatinine Pending
Glucose Pending
Calcium Pending
Vital Signs:
Vital Signs
Temp Pulse Resp BP Pulse Ox
98.2 F 119 16 117/76 95
12/17/23 03:00 12/17/23 03:00 12/17/23 03:00 12/17/23 03:00 12/17/23 03:00
I&O
12/16/23 12/17/23 12/18/23
06:59 06:59 06:59
Intake Total 1120 / 1120 960 / 960
Output Total 825 / 825
Balance 295 / 295 960 / 960
Review of Systems
-
All other systems: Reviewed and negative
--- NOTE | 2023-12-17 08:12 | W.PN.GS2 ---
Today's Communication / Plan
-
`
Assessment / Plan
-
Patient is a 78 yo F POD#2 s/p exploratory laparotomy, partial cecectomy, open primary ventral incisional hernia repair
AFVSS
doing well
-- full liquid diet
-- okay stop IVF when jose PO
-- Pain control: Tylenol, Toradol, IV Dilaudid PRN
-- Continue to hold PO therapeutic anticoagulation until 72 hrs post-op and bowel recovery
Subjective Data
-
Date of Service: December 17, 2023
pt seen and examined
sleeping but easily awoke
denies significant abdominal pain
no nausea
no flatus yet, no BM
Objective Data
-
Intake and Output
12/16/23 12/17/23 12/18/23
06:59 06:59 06:59
Intake Total 1120 / 1120 960 / 960
Output Total 825 / 825
Balance 295 / 295 960 / 960
Intake:
Oral fluids 120 / 120 360 / 360
IV fluids (Total) 1000 / 1000 600 / 600
Normosol 400 / 400
IV piggybacks 0 / 0
Output:
Urine, Cruz 825 / 825
Other:
How many times incontinent 1
SATURATED amount urine
Vital Signs
Temp Pulse Resp BP Pulse Ox
98.2 F 119 16 117/76 95
12/17/23 03:00 12/17/23 03:00 12/17/23 03:00 12/17/23 03:00 12/17/23 03:00
Calcium 8.0 mg/dl (8.4-10.2) L 12/16/23 04:31
Magnesium 1.3 mg/dl (1.6-2.3) L 12/16/23 04:31
Total Bilirubin 0.5 mg/dl (0.2-1.3) 12/14/23 21:42
AST 30 U/L (14-36) 12/14/23 21:42
ALT 17 U/L (0-35) 12/14/23 21:42
Alkaline Phosphatase 149 U/L (38-126) H 12/14/23 21:42
Total Protein 6.0 g/dl (6.3-8.2) L 12/14/23 21:42
Albumin 3.3 g/dl (3.5-5.0) L 12/14/23 21:42
Physical Exam
-
NAD AAOx3
ABD: soft, ND, minimal incisional tenderness
incision with aquacel dressing
--- NOTE | 2023-12-17 08:28 | VATNOTE ---
No blood return from left SQ port after cathflo dwell, will repeat cathflo activase
[2023-12-17] MEDS: D5/0.9% SODIUM CHLORIDE 1000 IV (08:41)
[2023-12-17] MEDS: WELLBUTRIN XL (24 hour extended release) 300 MG PO (08:42)
[2023-12-17] MEDS: DITROPAN 5 MG PO (08:42)
[2023-12-17] MEDS: DIOVAN PO (08:42)
[2023-12-17] MEDS: MAGNESIUM OXIDE 500 MG PO (08:42)
[2023-12-17] MEDS: TOPROL XL 50 MG PO ×2 (08:43→20:08)
[2023-12-17] MEDS: PROTONIX IV 40 MG IV ×2 (08:43→22:38)
[2023-12-17] MEDS: NSS (PRESERVATIVE FREE) 10 ML IV ×2 (08:43→22:38)
[2023-12-17] MEDS: NEURONTIN 300 MG PO ×2 (08:44→20:11)
--- NOTE | 2023-12-17 08:47 | VATNOTE ---
Cathflo 2mg instilled into left SQ port for withdrawal occlusion.
[2023-12-17] MEDS: DILAUDID 0.25 MG IV ×2 (09:03→17:55)
--- NOTE | 2023-12-17 10:09 | CM ---
Post Op Day #2, Full liquid diet. Discharge Plan of Care: Await PT/OT consult. Anticipate Home with no needs vs VN.
[2023-12-17] MEDS: LEXAPRO 10 MG PO (10:28)
--- NOTE | 2023-12-17 10:55 | VATNOTE ---
No blood return after 2nd catghflo dwell x 2hrs. Will reassess port after pt is up OOB
--- NOTE | 2023-12-17 15:43 | VATNOTE ---
Able to obtain blood return from port when patient was repositioned
[2023-12-17 16:15] LABS: % Basophils 0.2 % (0-2); % Immature Granulocytes 0.6 % (0-0.5); % Lymphocytes 8.4 % (20.5-51.1); % Monocytes 10.4 % (1.7-9.3); % Neutrophils 78.4 % (42.2-75.2); Absolute Eosinophils 0.2 10^3/uL (0-0.7); Absolute Immature Granulocytes 0.1 10^3/uL (0-0.05); Absolute Lymphocytes 0.7 10^3/uL (1.2-3.4); Absolute Monocytes 0.9 10^3/uL (0.1-0.6); Absolute Neutrophils 6.4 10^3/uL (1.4-6.5); Hematocrit 34.9 % (37.0-47.0); Hemoglobin 11.5 g/dL (12.0-16.0); Mean Corpuscular Volume 85.1 fL (81.0-99.0); Mean Platelet Volume 8.7 fL (7.4-10.4); Nucleated Red Blood Cells % 0 %; Platelet Count 274 10^3/uL (130-400); Red Cell Dist. Width 14.6 % (11.5-14.5); White Blood Cell Count 8.2 10^3/uL (4.8-10.8)
[2023-12-17 16:30] LABS: Blood Urea Nitrogen 8 mg/dl (7-17); Carbon Dioxide 27 mmol/L (22-30); Chloride 99 mmol/L (98-107); Estimated Creatinine Clearance 67 ml/min; Glucose 122 mg/dl (70-99); Potassium 3.3 mmol/L (3.5-5.1); Sodium 133 mmol/L (135-145); eGFR > 60.00
[2023-12-17] MEDS: LOVENOX 40 MG SC (17:05)
[2023-12-18] VITALS (8 sets, daily range): BP systolic 114–150; BP diastolic 68–88; PULSE 117; O2SAT 95; BMI 25.5
[2023-12-18] MEDS: SYNTHROID 125 MCG PO (05:54)
[2023-12-18 06:30] LABS: % Basophils 0.2 % (0-2); % Eosinophils 3.1 % (0-6); % Immature Granulocytes 0.6 % (0-0.5); % Monocytes 11.2 % (1.7-9.3); % Neutrophils 75.9 % (42.2-75.2); Absolute Eosinophils 0.3 10^3/uL (0-0.7); Absolute Immature Granulocytes 0.1 10^3/uL (0-0.05); Absolute Lymphocytes 0.8 10^3/uL (1.2-3.4); Absolute Neutrophils 6.5 10^3/uL (1.4-6.5); Hematocrit 32.8 % (37.0-47.0); Hemoglobin 10.8 g/dL (12.0-16.0); Mean Corp Hgb Conc. 32.9 g/dL (33.0-37.0); Nucleated Red Blood Cells % 0 %; Platelet Count 323 10^3/uL (130-400); Red Blood Cell Count 3.86 10^6/uL (4.20-5.40); Red Cell Dist. Width 14.6 % (11.5-14.5); White Blood Cell Count 8.6 10^3/uL (4.8-10.8)
[2023-12-18 06:45] LABS: Blood Urea Nitrogen 8 mg/dl (7-17); Calcium 7.9 mg/dl (8.4-10.2); Carbon Dioxide 29 mmol/L (22-30); Chloride 97 mmol/L (98-107); Estimated Creatinine Clearance 67 ml/min; Glucose 84 mg/dl (70-99); Potassium 3.6 mmol/L (3.5-5.1); Sodium 132 mmol/L (135-145); eGFR > 60.00
--- NOTE | 2023-12-18 08:10 | W.PN.HOSP.TC ---
Addendum entered and electronically signed by Derick Gomez MD 12/18/23 15:41:
Probable acute blood loss anemia
Addendum entered and electronically signed by Derick Gomez MD 12/18/23 15:39:
We will start her on Cardizem drip and reevaluate.
Addendum entered and electronically signed by Derick Gomez MD 12/18/23 14:17:
Patient has a Butran patch that she uses 10 mg every 7 days and to change today. I spoke with pharmacy and we do not have it in formulary but I just ordered and family can bring it in.
Addendum entered and electronically signed by Derick Gomez MD 12/18/23 13:34:
A-fib RVR--> twelve-lead EKG. Add IV Lopressor.
Original Note:
Today's Communication/Plan
-
Low residue diet today. Resume anticoagulation tonight. Resume oral diuretics. Continue postop care.
Assessment / Plan
Assessment / Plan
78-year-old female likely hernia admitted with abdominal pain found incarcerated hernia s/p surgery.
Physical exam:
General: Well Developed, Well Nourished and No Apparent Distress
HEENT: Normocephalic, Atraumatic and Moist Mucous Membranes
Respiratory: Clear to Auscultation; Negative Wheezes, Rales or Rhonchi
Cardiac: Regular Rhythm and S1/S2
GI: Soft, Mild Tender and Nondistended, postop findings, BS hypoactive
Musculoskeletal: No Clubbing, No Cyanosis and No Edema
Neuro: Awake, Alert and Oriented
Psych: Calm
A/P:
# Incarcerated ventral hernia-exploratory laparotomy, partial cecectomy and appendectomy, primary repair of ventral incisional hernia by 12/15/2023
Advance to low residue diet per surgery today
Xarelto on hold until cleared by surgery-->Okay to restart anticoagulation tonight per surgery.
Off IVF
Hb 10.8 today.
Monitor closely
PT OT recommended home with home health
Discharge once cleared by surgery.
# Hyponatremia-hypertonic/isotonic fluid while little oral intake but can stop soon
Na 132 today
Follow sodium
#Hypokalemia
Repleted and K improved today
# Chronic heart failure with preserved ejection fraction-continue with statin, metoprolol
Lasix has been on hold--> we will restart today or tomorrow morning.
Echo 08/03/2020 LV size function. EF 66%. Stage II diastolic dysfunction. Thickened mitral valves. Mitral valve-moderate MR. Mild TR. Pulmonary artery pressure 48 mmHg.
# Paroxysmal atrial fibrillation-continue beta-juan m. Hold Xarelto until cleared by surgeon--> planning on restarting tonight.
# Depression/anxiety-continue Wellbutrin
Lexapro restarted
# Non-small cell lung cancer s/p R lower lobectomy and chemotherapy followed at [facility].
Last immunotherapy was a week ago.
Multiple hepatic metastasis, bilateral adrenal nodules concerning for adrenal metastasis.
Get records from [place]
# Small right pleural effusion-checked chest x-ray and right pleural effusion currently chronic and asymptomatic. Repeat images if symptomatic or necessary.

# Hypertension-metoprolol and valsartan
# Hypothyroidism-continue Synthroid
# Overactive bladder-oxybutynin
# Wedge-shaped focus of hypoattenuation within the spleen, which may represent prior splenic infarct or less likely splenic metastasis.
# History of diverticulitis status post colon resection
# History of breast cancer status postlumpectomy/radiation
# History of migraines
# Sleep apnea-CPAP intolerant
# Hypoalbuminemia
# DDD/Arthritis
# Ex Smoker
# DVT Prophylaxis-restart Xarelto tonight
# Full CODE
Anticipated Discharge: 24 - 48 hours
Subjective/Interval History
-
Date of Service: December 18, 2023
Patient with some abdominal discomfort but trying more solid diet today. Denies nausea or vomiting. Passing gases. Afebrile. No chest pain or shortness of breath
Objective Data
-
Labs:
Laboratory Results
12/18/23
04:38
WBC 8.6
Hgb 10.8 L
Hct 32.8 L
Plt Count 323
Sodium 132 L
Potassium 3.6
Chloride 97 L
Carbon Dioxide 29
BUN 8
Creatinine 0.5 L
Glucose 84
Calcium 7.9 L
Vital Signs:
Vital Signs
Temp Pulse Resp BP Pulse Ox
99.7 F 122 16 128/85 95
12/18/23 07:13 12/18/23 07:13 12/18/23 07:13 12/18/23 07:13 12/18/23 07:13
I&O
12/17/23 12/18/23 12/19/23
06:59 06:59 06:59
Intake Total 960 / 960 720 / 720
Balance 960 / 960 720 / 720
Review of Systems
-
All other systems: Reviewed and negative
[2023-12-18] MEDS: DIOVAN PO (08:25)
[2023-12-18] MEDS: NSS (PRESERVATIVE FREE) 10 ML IV (08:26)
[2023-12-18] MEDS: LEXAPRO 10 MG PO (08:26)
[2023-12-18] MEDS: WELLBUTRIN XL (24 hour extended release) 300 MG PO (08:26)
[2023-12-18] MEDS: DITROPAN 5 MG PO (08:26)
[2023-12-18] MEDS: NEURONTIN 300 MG PO ×2 (08:26→20:30)
[2023-12-18] MEDS: MAGNESIUM OXIDE 500 MG PO (08:26)
[2023-12-18] MEDS: TOPROL XL 50 MG PO ×2 (08:27→20:30)
[2023-12-18] MEDS: PROTONIX IV 40 MG IV (08:27)
--- NOTE | 2023-12-18 08:45 | W.PN.GS2 ---
Addendum entered and electronically signed by Jose E Diaz MD 12/18/23 09:33:
Patient seen and examined. Agree with assessment plan as documented below.
Feels better, no complaints. Pain well-controlled. No nausea or vomiting. Tolerated fulls. Passing flatus, no BM. Ambulating. Afebrile.
Gen: NAD
Abd: soft, NT/ND, incision c/d/i - no erythema, ecchymosis or drainage, jacklyn in place
Patient is a 78 yo F�POD#3�s/p exploratory laparotomy, partial cecectomy, open primary ventral incisional hernia repair
AFVSS
Progressing well
Labs stable
-- Advance to LRD
-- HLIV
-- Ok to resume therapeutic AC tonight
-- Pain control: Tylenol, Toradol, Tramadol/IV Dilaudid PRN.
-- Medical management as per primary team
Original Note:
Today's Communication / Plan
-
Advance diet
Assessment / Plan
-
Patient is a 78 yo F POD#3 s/p exploratory laparotomy, partial cecectomy, open primary ventral incisional hernia repair
AFVSS
progressing well
labs stable
-- advance to LRD
-- Ok to resume therapeutic AC tonight
-- Pain control: Tylenol, Toradol, Tramadol/IV Dilaudid PRN.
-- Medical management as per primary team
Subjective Data
-
Date of Service: December 18, 2023
Patient seen and examined at bedside with Dr. Diaz. Denies n/v. Tolerating liquids. Passing flatus, no BM as of yet. Minimal incisional discomfort
Objective Data
-
Intake and Output
12/17/23 12/18/23 12/19/23
06:59 06:59 06:59
Intake Total 960 / 960 720 / 720
Balance 960 / 960 720 / 720
Intake:
Oral fluids 360 / 360 720 / 720
IV fluids (Total) 600 / 600
Other:
Number of approximated MODERATE 1
amounts of urine
How many times incontinent 2
MODERATE amount urine
How many times incontinent 1 1
SATURATED amount urine
Vital Signs
Temp Pulse Resp BP Pulse Ox
99.7 F 122 16 128/85 95
12/18/23 07:13 12/18/23 08:27 12/18/23 07:13 12/18/23 08:27 12/18/23 07:13
Lab Results
12/18/23 04:38
12/18/23 04:38
Calcium 7.9 mg/dl (8.4-10.2) L 12/18/23 04:38
Magnesium 1.3 mg/dl (1.6-2.3) L 12/16/23 04:31
Total Bilirubin 0.5 mg/dl (0.2-1.3) 12/14/23 21:42
AST 30 U/L (14-36) 12/14/23 21:42
ALT 17 U/L (0-35) 12/14/23 21:42
Alkaline Phosphatase 149 U/L (38-126) H 12/14/23 21:42
Total Protein 6.0 g/dl (6.3-8.2) L 12/14/23 21:42
Albumin 3.3 g/dl (3.5-5.0) L 12/14/23 21:42
Physical Exam
-
NAD AAOx3
ABD: soft, ND, minimal incisional tenderness
incision with intact jacklyn, well approximated, no erythema
[2023-12-18] MEDS: LOPRESSOR 5 MG IV (13:52)
--- NOTE | 2023-12-18 14:34 | PTCARENOTE ---
Addendum entered by Dolly You RN 12/18/23 16:44:
Non-formulary Butran patch verified by Pharmacy. Prior to admission Butran patch removed from L upper arm and wasted with CARTER RN. New Butran applied to R upper arm. BB RN witness.
Original Note:
Butran patch found on pt's left upper arm. Per pt 10mg butran patch is changed weekly. Dr Gomez notified and patch ordered. Per pharmacy patch is not on formulary and pt to have to supply own. RN verified with daughter Rylee that she would bring in
new patch later today. Care ongoing at this time.
--- NOTE | 2023-12-18 14:59 | CM ---
Patient on low residue diet. Discharge Plan of Care: Home with VN and PT services. Referral sent to [facility]. No discharge date as yet.
--- NOTE | 2023-12-18 15:12 | PN.CDI ---
CDI
- -
CDI:
Physician Documentation Request
Admit Date: 12/15/23 05:17
Dear Doctor Jason,
Please review the following and provide your response in the progress notes.
Clinical Indicators:
POD #3
s/p exploratory laparotomy, partial cecectomy, open primary ventral incisional hernia repair
Laboratory Tests
12/14/23 12/16/23 12/17/23
21:42 04:31 16:07
Hgb 12.0 11.4 L 11.5 L
12/18/23
04:38
Hgb 10.8 L
Based on the above, please clarify, in the progress note, the condition/diagnosis evaluated, monitored and/or treated?
Acute blood loss anemia
Abnormal lab value, clinically insignificant
Other
Use of terms such as suspected, likely, concern for, or probable (associated with a specific diagnosis that is being evaluated, monitored, or treated as if it exists) are acceptable and can be coded in the inpatient setting, when documented at the
time of discharge.
Thank you,
Kat Hamilton RN BSN CCDS
CDI Specialist
please contact via tiger text
Please use your independent medical judgment in providing your response.
[2023-12-18] MEDS: CARDIZEM 125 IV (16:06)
[2023-12-18] MEDS: NON-FORMULARY ITEM 10 MG TRANSDERM (16:22)
[2023-12-18] MEDS: XARELTO 15 MG PO (17:59)
[2023-12-18] MEDS: DILAUDID 0.25 MG IV (20:58)
[2023-12-19] VITALS (7 sets, daily range): BP systolic 110–139; BP diastolic 61–88; PULSE 102; O2SAT 95; BMI 24.6
[2023-12-19] MEDS: DILAUDID 0.25 MG IV (05:29)
--- NOTE | 2023-12-19 08:28 | W.PN.HOSP.TC ---
Today's Communication/Plan
-
see ntoe
Assessment / Plan
Assessment / Plan
78-year-old female likely hernia admitted with abdominal pain found incarcerated hernia s/p surgery.
# Incarcerated ventral hernia-exploratory laparotomy, partial cecectomy and appendectomy, primary repair of ventral incisional hernia by 12/15/2023
POD # 4 today
Tolerating LR diet but apatite not great
No BM yet, Bowel sounds suppressed, abd exam benign
f/u Hbg level, resumed back on xarelto yesterday
PT OT recommended home with home health
# Hyponatremia
hypertonic/isotonic fluid while little oral intake but can stop soon
morning lab pending today
Follow sodium
#Hypokalemia
replace PRN
# Chronic heart failure with preserved ejection fraction
Echo 08/03/2020 LV size function. EF 66%. Stage II diastolic dysfunction. Thickened mitral valves. Mitral valve-moderate MR. Mild TR. Pulmonary artery pressure 48 mmHg.
continue with statin, metoprolol
Continue holding lasix as poor oral intake
# Paroxysmal atrial fibrillation/flutter
-EKG showing Atrial flutter with controlled rate
-stop cardizem drip
-increasing Toprol xl to 75mg BID
-xarelto resumed yesterday
# Depression/anxiety-continue Wellbutrin
Lexapro restarted
# Non-small cell lung cancer s/p R lower lobectomy and chemotherapy
followed at [facility].
Last immunotherapy was a week ago.
Multiple hepatic metastasis, bilateral adrenal nodules concerning for adrenal metastasis.
Get records from [place]
# Small right pleural effusion
-checked chest x-ray and right pleural effusion currently chronic and asymptomatic. Repeat images if symptomatic or necessary.
Essential Hypertension-metoprolol and valsartan
Hypothyroidism-continue Synthroid
Overactive bladder-oxybutynin
Wedge-shaped focus of hypoattenuation within the spleen, which may represent prior splenic infarct or less likely splenic metastasis.
History of diverticulitis status post colon resection
History of breast cancer status postlumpectomy/radiation
History of migraines
Sleep apnea-CPAP intolerant
Hypoalbuminemia
DDD/Arthritis
Ex Smoker
DVT Prophylaxis-restart Xarelto tonight
Full CODE
Anticipated Discharge: Within 24 hours
Subjective/Interval History
-
Date of Service: December 19, 2023
resting comfortable in bed
apatite not good
no nausea
denies abd pain/vomiting
Objective Data
-
Labs:
Laboratory Results
12/19/23
06:00
WBC Pending
Hgb Pending
Hct Pending
Plt Count Pending
Sodium Pending
Potassium Pending
Chloride Pending
Carbon Dioxide Pending
BUN Pending
Creatinine Pending
Glucose Pending
Calcium Pending
Vital Signs:
Vital Signs
Temp Pulse Resp BP Pulse Ox
98.3 F 70 15 139/68 90
12/19/23 07:58 12/19/23 07:58 12/19/23 07:58 12/19/23 07:58 12/19/23 07:58
I&O
12/18/23 12/19/23 12/20/23
06:59 06:59 06:59
Intake Total 720 / 720 240 / 240
Balance 720 / 720 240 / 240
Review of Systems
-
Respiratory: Reports No Symptoms
Cardiac: Reports No Symptoms
Abdomen/GI: Reports Abdominal Pain and Nausea; Denies Vomiting
Physical Exam
-
General: Comfortable
HEENT: Negative Oxygen
Cardiac: Irregular Rhythm; Negative Murmur or Tachycardic
GI: Soft, Nontender, Nondistended and Other (Decreased bowel sounds, infraumbilical midline surgical scar with jacklyn in place, no wound dehiscence/drainage/erythema)
Musculoskeletal: No Edema
Neuro: Awake, Alert, Oriented, No Motor Deficits and Nonfocal/Grossly Intact
Psych: Calm
[2023-12-19] MEDS: NSS (PRESERVATIVE FREE) 10 ML IV ×2 (09:09→09:14)
[2023-12-19] MEDS: TOPROL XL 75 MG PO ×2 (09:09→20:15)
[2023-12-19] MEDS: WELLBUTRIN XL (24 hour extended release) 300 MG PO (09:10)
--- NOTE | 2023-12-19 09:10 | PTCARENOTE ---
Patient's cardizem drip D/C'd per order and metoprolol 75mg given.
[2023-12-19] MEDS: NEURONTIN 300 MG PO ×2 (09:11→20:14)
[2023-12-19] MEDS: LEXAPRO 10 MG PO (09:11)
[2023-12-19] MEDS: DIOVAN 160 MG PO (09:11)
[2023-12-19] MEDS: MAGNESIUM OXIDE 500 MG PO (09:11)
[2023-12-19] MEDS: SYNTHROID 125 MCG PO (09:12)
[2023-12-19] MEDS: DITROPAN 5 MG PO (09:12)
[2023-12-19] MEDS: LASIX 40 MG PO (09:12)
[2023-12-19] MEDS: PROTONIX IV 40 MG IV (09:14)
[2023-12-19] MEDS: TOPROL XL PO (09:40)
[2023-12-19 09:58] LABS: Hematocrit 33.5 % (37.0-47.0); Hemoglobin 10.8 g/dL (12.0-16.0); Mean Corp Hgb Conc. 32.2 g/dL (33.0-37.0); Mean Corpuscular Hgb 28.1 pg (27.0-31.0); Mean Platelet Volume 8.6 fL (7.4-10.4); Platelet Count 306 10^3/uL (130-400); Red Blood Cell Count 3.85 10^6/uL (4.20-5.40); Red Cell Dist. Width 14.8 % (11.5-14.5); White Blood Cell Count 8.9 10^3/uL (4.8-10.8)
[2023-12-19 10:13] LABS: Blood Urea Nitrogen 8 mg/dl (7-17); Calcium 8.1 mg/dl (8.4-10.2); Carbon Dioxide 30 mmol/L (22-30); Chloride 99 mmol/L (98-107); Estimated Creatinine Clearance 67 ml/min; Glucose 88 mg/dl (70-99); Potassium 4.1 mmol/L (3.5-5.1); Sodium 131 mmol/L (135-145); eGFR > 60.00
--- NOTE | 2023-12-19 12:00 | W.PN.GS2 ---
Today's Communication / Plan
-
LRD
Pain control
Assessment / Plan
-
Patient is a 78 yo F POD#4 s/p exploratory laparotomy, partial cecectomy, open primary ventral incisional hernia repair
AFVSS, HR with better control
progressing well
labs stable
-- continue LRD
-- Pain control: Tylenol, Toradol, Buprenorphine patch; prn Tramadol/dilaudid.
-- Medical management and dispo planning as per primary team
--Clear for d/c from surgical standpoint once pain well controlled and tolerating diet
Subjective Data
-
Date of Service: December 19, 2023
Patient seen and examined at bedside with Dr. Duong. Denies nausea or vomiting. Passing flatus. Tolerating diet but with poor appetite.
Objective Data
-
Intake and Output
12/18/23 12/19/23 12/20/23
06:59 06:59 06:59
Intake Total 720 / 720 240 / 240
Balance 720 / 720 240 / 240
Intake:
Oral fluids 720 / 720 240 / 240
Other:
Number of approximated MODERATE 1 2
amounts of urine
How many times incontinent 2
MODERATE amount urine
How many times incontinent 1
SATURATED amount urine
Vital Signs
Temp Pulse Resp BP Pulse Ox
98.3 F 70 15 139/68 97
12/19/23 07:58 12/19/23 09:12 12/19/23 07:58 12/19/23 09:12 12/19/23 10:00
Lab Results
12/19/23 09:49
12/19/23 09:49
Calcium 8.1 mg/dl (8.4-10.2) L 12/19/23 09:49
Magnesium 1.3 mg/dl (1.6-2.3) L 12/16/23 04:31
Total Bilirubin 0.5 mg/dl (0.2-1.3) 12/14/23 21:42
AST 30 U/L (14-36) 12/14/23 21:42
ALT 17 U/L (0-35) 12/14/23 21:42
Alkaline Phosphatase 149 U/L (38-126) H 12/14/23 21:42
Total Protein 6.0 g/dl (6.3-8.2) L 12/14/23 21:42
Albumin 3.3 g/dl (3.5-5.0) L 12/14/23 21:42
Physical Exam
-
NAD AAOx3
ABD: soft, ND, minimal incisional tenderness
incision with intact jacklyn, well approximated, no erythema
[2023-12-19] MEDS: TORADOL 15 MG IV (16:47)
[2023-12-19] MEDS: XARELTO 15 MG PO (17:29)
[2023-12-20 03:00] VITALS: BP 134/86
[2023-12-20 06:00] VITALS: BMI 23.9
[2023-12-20 07:00] VITALS: BP 115/68
[2023-12-20] MEDS: LEXAPRO 10 MG PO (07:50)
[2023-12-20] MEDS: WELLBUTRIN XL (24 hour extended release) 300 MG PO (07:50)
[2023-12-20] MEDS: DIOVAN 160 MG PO (07:50)
[2023-12-20] MEDS: DITROPAN 5 MG PO (07:50)
[2023-12-20] MEDS: MAGNESIUM OXIDE 500 MG PO (07:51)
[2023-12-20] MEDS: TOPROL XL 75 MG PO ×2 (07:51→19:30)
[2023-12-20] MEDS: LASIX 40 MG PO (07:51)
[2023-12-20] MEDS: SYNTHROID 125 MCG PO (07:51)
[2023-12-20] MEDS: NEURONTIN 300 MG PO ×2 (07:51→19:28)
[2023-12-20] MEDS: PROTONIX IV 40 MG IV (08:05)
[2023-12-20 10:50] VITALS: BP 108/69
[2023-12-20] MEDS: MIRALAX 17 GRAMS PO (10:56)
[2023-12-20 11:04] LABS: Hematocrit 34.3 % (37.0-47.0); Hemoglobin 11.7 g/dL (12.0-16.0); Mean Corp Hgb Conc. 34.1 g/dL (33.0-37.0); Mean Corpuscular Hgb 28.3 pg (27.0-31.0); Mean Corpuscular Volume 82.9 fL (81.0-99.0); Mean Platelet Volume 8.9 fL (7.4-10.4); Platelet Count 449 10^3/uL (130-400); Red Blood Cell Count 4.14 10^6/uL (4.20-5.40); Red Cell Dist. Width 14.8 % (11.5-14.5); White Blood Cell Count 9.8 10^3/uL (4.8-10.8)
--- NOTE | 2023-12-20 11:05 | W.PN.CRS1 ---
Today's Communication / Plan
-
okay for discharge
daily miralax
Assessment/Plan
-
Patient is a 78 yo F�POD#5�s/p exploratory laparotomy, partial cecectomy, open primary ventral incisional hernia repair
AFVSS, HR with better control
progressing well
labs stable
-- Continue LRD.
-- Pain control: Tylenol, Toradol, Buprenorphine patch; prn Tramadol/Dilaudid.
-- Medical management and dispo planning as per primary team. Discussed with hospitalist.
-- Okay to restart Miralax
-- Xarelto restarted.
Subjective Data
Subjective Data
Date of Service: December 20, 2023
Patient state she has no nausea or vomiting. She has been walking. Overall she feels good. She had flatus yesterday. She has no bowel movements yet.
Objective Data
-
Vital Signs
Temp Pulse Resp BP Pulse Ox
97.6 F 114 18 108/69 96
12/20/23 10:50 12/20/23 10:50 12/20/23 10:50 12/20/23 10:50 12/20/23 10:50
Intake & Output
12/19/23 12/20/23 12/21/23
06:59 06:59 06:59
Intake Total 240 / 240 1000 / 1000
Output Total 100 / 100
Balance 240 / 240 900 / 900
Intake:
Oral fluids 240 / 240 1000 / 1000
Output:
Urine, Voided 100 / 100
Other:
Number of approximated MODERATE 2 1
amounts of urine
How many times incontinent 2
MODERATE amount urine
Lab Results
12/20/23 10:41
Physical Exam
-
General: No Acute Distress and AOx3
Abdomen: Soft, Non Distended and Non Tender
Wound: No Signs of Infection
[2023-12-20 11:19] LABS: Blood Urea Nitrogen 12 mg/dl (7-17); Calcium 8.9 mg/dl (8.4-10.2); Carbon Dioxide 30 mmol/L (22-30); Chloride 93 mmol/L (98-107); Estimated Creatinine Clearance 67 ml/min; Glucose 90 mg/dl (70-99); Potassium 3.8 mmol/L (3.5-5.1); Sodium 131 mmol/L (135-145); eGFR > 60.00
--- NOTE | 2023-12-20 11:30 | W.PN.HOSP.TC ---
Today's Communication/Plan
-
cardio eval
provide miralax
continue other meds
Assessment / Plan
Assessment / Plan
78-year-old female likely hernia admitted with abdominal pain found incarcerated hernia s/p surgery.
# Incarcerated ventral hernia-exploratory laparotomy, partial cecectomy and appendectomy, primary repair of ventral incisional hernia by 12/15/2023
POD # 5 today
Tolerating LR diet but apatite not great
No BM yet, Good bowel sounds
f/u Hbg level, resumed back on xarelto yesterday
PT OT recommended home with home health
added miralax to regimen
cleared from [facility] for discharge
# Hyponatremia
hypertonic/isotonic fluid while little oral intake but can stop soon
stabilized around 131
Follow sodium
#Hypokalemia
replace PRN
# Chronic heart failure with preserved ejection fraction
Echo 08/03/2020 LV size function. EF 66%. Stage II diastolic dysfunction. Thickened mitral valves. Mitral valve-moderate MR. Mild TR. Pulmonary artery pressure 48 mmHg.
continue with statin, metoprolol
lasix on hold. no signs of volume overload. poor oral intake,
# Paroxysmal atrial fibrillation/flutter
-EKG showing Atrial flutter with controlled rate
-stopped cardizem drip @ 5mg/hr on 12/18
-increasing Toprol xl to 75mg BID
-xarelto resumed
-HR remains uncontrolled in 120s, Cardio evaluation requested
# Depression/anxiety-continue Wellbutrin
Lexapro restarted
# Non-small cell lung cancer s/p R lower lobectomy and chemotherapy
followed at [facility].
Last immunotherapy was a week ago.
Multiple hepatic metastasis, bilateral adrenal nodules concerning for adrenal metastasis.
Get records from [facility]
# Small right pleural effusion
-checked chest x-ray and right pleural effusion currently chronic and asymptomatic.
-Repeat images if symptomatic or necessary.
Essential Hypertension-metoprolol and valsartan
Hypothyroidism-continue Synthroid
Overactive bladder-oxybutynin
Wedge-shaped focus of hypoattenuation within the spleen, which may represent prior splenic infarct or less likely splenic metastasis.
History of diverticulitis status post colon resection
History of breast cancer status postlumpectomy/radiation
History of migraines
Sleep apnea-CPAP intolerant
Hypoalbuminemia
DDD/Arthritis
Ex Smoker
DVT Prophylaxis-restart Xarelto tonight
Full CODE
Anticipated Discharge: Within 24 hours
Subjective/Interval History
-
Date of Service: December 20, 2023
Sitting comfortably in chair
No nausea or vomiting
No bowel meant overnight
Objective Data
-
Labs:
Laboratory Results
12/20/23
10:41
WBC 9.8
Hgb 11.7 L
Hct 34.3 L
Plt Count 449 H D
Sodium 131 L
Potassium 3.8
Chloride 93 L
Carbon Dioxide 30
BUN 12
Creatinine 0.6
Glucose 90
Calcium 8.9
Vital Signs:
Vital Signs
Temp Pulse Resp BP Pulse Ox
97.6 F 114 18 108/69 96
12/20/23 10:50 12/20/23 10:50 12/20/23 10:50 12/20/23 10:50 12/20/23 10:50
I&O
12/19/23 12/20/23 12/21/23
06:59 06:59 06:59
Intake Total 240 / 240 1000 / 1000
Output Total 100 / 100
Balance 240 / 240 900 / 900
Review of Systems
-
Respiratory: Reports No Symptoms
Cardiac: Reports No Symptoms
Abdomen/GI: Reports No Symptoms
Physical Exam
-
General: Comfortable
HEENT: Negative Oxygen
Cardiac: Irregular Rhythm and Tachycardic; Negative Murmur
GI: Soft, Nontender, Nondistended and Other ( infraumbilical midline surgical scar with jacklyn in place, no wound dehiscence/drainage/erythema)
Musculoskeletal: No Edema
Neuro: Awake, Alert, Oriented, No Motor Deficits and Nonfocal/Grossly Intact
Psych: Calm
--- NOTE | 2023-12-20 14:38 | CON.CAR ---
Consultation
Consultation Request
Date/Time Consultation Requested: 12/20/23, 2pm
Date/Time Consultation Performed: 12/20/23, 230pm
Requesting Provider: Eliazar
Performing Provider: Cherrie
Reason for Consultation: A fib with RVR
Medical History
-
Chief Complaint: A fib with RVR on monitor
History of Present Illness:
78 yo female with PMH of persistent A fib on xarelto, chronic HFPEF, HTN is admitted with incarcerated ventral hernia s/p exploratory laparotomy, partial cecectomy and appendectomy, primary repair of ventral incisional hernia by 12/15/2023.
We are consulted for A fib with RVR. Seems like was better controlled on diltiazem drip, but rates have increased now that drip is off despite Toprol XL 75mg bid.
She is asymptomatic from a cardiac perspective.
Past Medical History
Past Medical History: Arrhythmias (persistent A fib), CHF (chronic HFPEF) and HTN
Past Surgical History: Cholecystectomy and Orthopedic (TKA)
Social History
Tobacco: Non-Smoker
Family History
Family History: CAD (sister)
Allergies / Home Medications
Allergy/AdvReac Type Severity Reaction Status Date / Time
morphine Allergy Unknown Verified 12/14/23 21:17
Penicillins Allergy Rash Verified 12/14/23 21:17
Medication Instructions Recorded Confirmed Type
Magic Mouthwash 5 ml PO Q6HPRN PRN mouth sores 08/01/23 12/15/23 History
acetaminophen 650 mg 650 mg PO DAILY Pain 08/01/23 12/15/23 History
tablet,extended release
bupropion HCl 300 mg 24 hr tablet, 300 mg PO DAILY Depression 08/01/23 12/15/23 History
extended release
escitalopram oxalate 10 mg tablet 10 mg PO DAILY Depression 08/01/23 12/15/23 History
gabapentin 100 mg capsule 300 mg PO BID Neurological 08/01/23 12/15/23 History
Condition
levothyroxine 125 mcg tablet 125 mcg PO DAILY Thyroid 08/01/23 12/15/23 History
lidocaine-prilocaine 2.5 %-2.5 % 1 applic topical DAILYPRN PRN mild 08/01/23 12/15/23 History
topical cream pain
metoprolol succinate 50 mg 50 mg PO BID Heart Failure 08/01/23 12/15/23 History
tablet,extended release 24 hr
oxybutynin chloride 5 mg tablet 5 mg PO DAILY Urinary Issue 08/01/23 12/15/23 History
prochlorperazine maleate 10 mg 10 mg PO QID PRN nausea/vomiting 08/01/23 12/15/23 History
tablet
rivaroxaban 15 mg tablet (Xarelto) 15 mg PO QPM Blood Clot 08/01/23 12/15/23 History
Prevention/Tx
magnesium oxide 500 mg PO DAILY #30 tabs 08/04/23 12/15/23 Rx
valsartan 320 mg tablet 160 mg PO DAILY Blood Pressure #30 08/04/23 12/15/23 Rx
tabs
furosemide 40 mg tablet 40 mg PO DAILY Fluid 12/16/23 12/15/23 History
Retention/Swelling
levofloxacin 500 mg tablet 500 mg PO DAILY Infection 12/16/23 12/15/23 History
Review of Systems
-
All other systems: Negative unless noted
Physical Exam
Vital Signs
Temp Pulse Resp BP Pulse Ox
97.6 F 114 18 108/69 96
12/20/23 10:50 12/20/23 10:50 12/20/23 10:50 12/20/23 10:50 12/20/23 10:50
Lab Results
12/20/23 10:41
12/20/23 10:41
Physical Exam
General: Well Developed and Well Nourished
HEENT: Normocephalic and Anicteric
Respiratory: Clear and Non Labored Respirations
Cardiac: S1/S2 (normal), Irregular Rhythm, Murmur (none), Peripheral Edema (none) and JVD (none)
GI: Soft and Non Tender
Musculoskeletal: Clubbing, No Cyanosis and No Edema
Skin: Warm
Neuro: AO x 3
Psych: Calm
Impression / Plan
-
78 yo female with PMH of persistent A fib on xarelto, chronic HFPEF, HTN is admitted with incarcerated ventral hernia s/p exploratory laparotomy, partial cecectomy and appendectomy, primary repair of ventral incisional hernia by 12/15/2023.
We are consulted for A fib with RVR. Seems like was better controlled on diltiazem drip, but rates have increased now that drip is off despite Toprol XL 75mg bid.
# A fib with RVR
-no sxs
-cont Toprol XL 75mg bid
-add diltiazem 180mg daily, and trend tele
-CHADS2-VASC = 5. Xarelto for OAC. Based on CrCl calculated at 77 by me today, dose changed to 20mg daily
# HTN
-BP at goal: valsartan was stopped as outpatient due to CHASIDY
-monitor BP on Toprol and diltiazem
# Chronic HFPEF
-currently on lasix 40mg PO daily: looks euvolemic
-at home, she takes prn: can go back to this on discharge
-she experienced CHASIDY with daily lasix
-she experienced CHASIDY with Farxiga as outpatient
#Mild/moderate MR
-outpatient f/u
Studies:
Echoi 07/2023: EF 65-70%, Stage I DD, mild/moderate MR, mild TR, PASP 48
Data Reviewed
-
EKG: Tracing Personally Visualized and interpreted (A fib 122, PVC's)
Medical Tests (Nuc Med, Echo etc): Report Reviewed by me (echo summarized in note)
Labs: Labs Reviewed by me
[2023-12-20] MEDS: CARDIZEM CD 180 MG PO (14:51)
[2023-12-20 15:00] VITALS: BP 124/67
[2023-12-20] MEDS: XARELTO 20 MG PO (17:00)
[2023-12-20 19:21] VITALS: BP 117/74
[2023-12-20] MEDS: ULTRAM 50 MG PO (19:28)
[2023-12-20 22:56] VITALS: BP 118/69
[2023-12-21 03:12] VITALS: BP 167/81
[2023-12-21 05:44] LABS: Blood Urea Nitrogen 10 mg/dl (7-17); Calcium 8.6 mg/dl (8.4-10.2); Carbon Dioxide 32 mmol/L (22-30); Chloride 92 mmol/L (98-107); Estimated Creatinine Clearance 67 ml/min; Glucose 86 mg/dl (70-99); Potassium 3.8 mmol/L (3.5-5.1); Sodium 130 mmol/L (135-145); eGFR > 60.00
[2023-12-21] MEDS: SYNTHROID 125 MCG PO (06:47)
[2023-12-21 07:00] VITALS: BP 134/79
[2023-12-21] MEDS: NEURONTIN 300 MG PO ×2 (08:57→20:54)
[2023-12-21] MEDS: MIRALAX 17 GRAMS PO (08:57)
[2023-12-21] MEDS: TOPROL XL 75 MG PO ×2 (08:58→20:55)
[2023-12-21] MEDS: LASIX 40 MG PO (08:58)
[2023-12-21] MEDS: MAGNESIUM OXIDE 500 MG PO (08:58)
[2023-12-21] MEDS: WELLBUTRIN XL (24 hour extended release) 300 MG PO (08:59)
[2023-12-21] MEDS: DITROPAN 5 MG PO (08:59)
[2023-12-21] MEDS: NSS (PRESERVATIVE FREE) 10 ML IV (08:59)
[2023-12-21] MEDS: LEXAPRO 10 MG PO (08:59)
[2023-12-21] MEDS: CARDIZEM CD 180 MG PO ×2 (08:59→20:53)
[2023-12-21 09:00] VITALS: BMI 23.8
[2023-12-21] MEDS: PROTONIX IV 40 MG IV (09:00)
[2023-12-21] MEDS: FLUSH (NSS) 1 FLUSH IV (09:00)
--- NOTE | 2023-12-21 09:11 | W.PN.CD ---
Today's Communication / Plan
-
increase diltiazem to 180mg bid
trend tele
Impression / Plan
-
78 yo female with PMH of persistent A fib on xarelto, chronic HFPEF, HTN is admitted with incarcerated ventral hernia s/p exploratory laparotomy, partial cecectomy and appendectomy, primary repair of ventral incisional hernia by 12/15/2023.
We are consulted for A fib with RVR. Seems like was better controlled on diltiazem drip, but rates have increased now that drip is off despite Toprol XL 75mg bid.
# A fib with RVR, also typical atrial flutter
-no sxs
-cont Toprol XL 75mg bid
-increase diltiazem to 180mg bid
-CHADS2-VASC = 5. Xarelto for OAC. Based on CrCl calculated >50, dose changed to 20mg daily
# HTN
-BP at goal: valsartan was stopped as outpatient due to CHASIDY
-monitor BP on Toprol and diltiazem
# Chronic HFPEF
-currently on lasix 40mg PO daily: looks euvolemic
-at home, she takes prn: can go back to this on discharge
-she experienced CHASIDY with daily lasix
-she experienced CHASIDY with Farxiga as outpatient
#Mild/moderate MR
-outpatient f/u
Studies:
Echo 07/2023: EF 65-70%, Stage I DD, mild/moderate MR, mild TR, PASP 48
Physical Exam
Vital Signs/Labs
Vital Signs
Temp Pulse Resp BP Pulse Ox
97.4 F 108 18 134/79 93
12/21/23 07:00 12/21/23 08:58 12/21/23 07:00 12/21/23 08:58 12/21/23 07:00
12/20/23 12/21/23 12/22/23
06:59 06:59 06:59
Actual Weight 63.163 kg
12/20/23 10:41
12/21/23 04:34
PT 13.8 Sec (11.4-14.6) 12/15/23 05:41
INR 1.07 12/15/23 05:41
Magnesium 1.3 mg/dl (1.6-2.3) L 12/16/23 04:31
Physical Exam
Constitutional: No acute distress and Comfortable
EENT: Moist mucous membranes
Cardiovascular: Pedal edema is absent, JVD pressure is normal, Systolic murmur absent and Rhythm/rate is irregular
Respiratory: Respiratory effort normal and Lungs clear to auscul.
GI: Soft, Distention absent and Flat
Neuro/Psych: AO x 3
Data Reviewed
-
Date of Service: December 21, 2023
EKG: Other (Tele: A flutter 100-110s)
Labs: Labs Reviewed by me
--- NOTE | 2023-12-21 10:07 | W.PN.GS2 ---
Today's Communication / Plan
-
Bowel regimen.
Assessment / Plan
-
Patient is a 78 yo F POD#6 s/p exploratory laparotomy, partial cecectomy, open primary ventral incisional hernia repair
AFVSS, HR with better control, cards following
progressing well
labs stable
-- Milk of magnesia x 1 dose, continue daily MiraLAX
-- continue LRD
-- Pain control: Tylenol, Toradol, Buprenorphine patch; prn Tramadol/dilaudid.
-- Medical management and dispo planning as per primary team
-- Clear for d/c from surgical standpoint once +BM, will need to follow-up with Dr. Diaz in 1 week for staple removal.
Time Spent
Total Time Spent with Patient (in minutes): 15
Subjective Data
-
Date of Service: December 21, 2023
Interval Events:
No acute events overnight. Slept well. Pain Controlled. Denies Nausea/Vomiting, minimal bowel function. Tolerating diet.
Objective Data
-
Intake and Output
12/20/23 12/21/23 12/22/23
06:59 06:59 06:59
Intake Total 1000 / 1000 940 / 940
Output Total 100 / 100
Balance 900 / 900 940 / 940
Intake:
Oral fluids 1000 / 1000 940 / 940
Output:
Urine, Voided 100 / 100
Other:
Number of approximated MODERATE 1 1
amounts of urine
How many times incontinent 1
SMALL amount urine
How many times incontinent 2
MODERATE amount urine
Vital Signs
Temp Pulse Resp BP Pulse Ox
97.4 F 108 18 134/79 93
12/21/23 07:00 12/21/23 08:58 12/21/23 07:00 12/21/23 08:58 12/21/23 07:00
Lab Results
12/20/23 10:41
12/21/23 04:34
Calcium 8.6 mg/dl (8.4-10.2) 12/21/23 04:34
Magnesium 1.3 mg/dl (1.6-2.3) L 12/16/23 04:31
Total Bilirubin 0.5 mg/dl (0.2-1.3) 12/14/23 21:42
AST 30 U/L (14-36) 12/14/23 21:42
ALT 17 U/L (0-35) 12/14/23 21:42
Alkaline Phosphatase 149 U/L (38-126) H 12/14/23 21:42
Total Protein 6.0 g/dl (6.3-8.2) L 12/14/23 21:42
Albumin 3.3 g/dl (3.5-5.0) L 12/14/23 21:42
Physical Exam
-
GENERAL/NEURO: Awake, Alert, no distress
CHEST: Unlabored breathing on RA
ABDOMEN: Soft, Non-Tender, minimally distended, incisions clean dry intact with jacklyn in place.
[2023-12-21] MEDS: MILK OF MAGNESIA 30 ML PO (10:36)
[2023-12-21 11:30] VITALS: BP 104/61
--- NOTE | 2023-12-21 11:34 | W.PN.HOSP.TC ---
Today's Communication/Plan
-
Check serum and urine osmolality studies
Repeat chest x-ray
Bowel regimen
Await bowel movement
Assessment / Plan
Assessment / Plan
78-year-old female likely hernia admitted with abdominal pain found incarcerated hernia s/p surgery.
On examination awake and alert
Has not had a bowel movement
Cardiovascular system S1-S2 appreciated, irregular
Chest clear to auscultation
Abdomen ,bowel sounds, midline wound
No pedal edema
# Incarcerated ventral hernia-exploratory laparotomy, partial cecectomy and appendectomy, primary repair of ventral incisional hernia by 12/15/2023
Tolerating LR diet but appetite not great
No BM yet, bowel sounds present
f/u Hbg level, resumed back on Xarelto
PT OT recommended home with home health
MiraLAX and milk of magnesium
Await bowel movement
# Hyponatremia
Check serum and urine osmolality
TSH and cortisol
Continue Lasix
#Hypokalemia
replace PRN
# Chronic heart failure with preserved ejection fraction
Echo 08/03/2020 LV size function. EF 66%. Stage II diastolic dysfunction. Thickened mitral valves. Mitral valve-moderate MR. Mild TR. Pulmonary artery pressure 48 mmHg.
continue with statin, metoprolol,Lasix
# Paroxysmal atrial fibrillation/flutter
-Rates not well controlled
-EKG showing Atrial flutter with controlled rate
-stopped Cardizem drip @ 5mg/hr on 12/18
-Toprol Xl 75mg BID
-Xarelto resumed
-Cardizem increased to 180 mg twice daily
-Cardiology following
# Non-small cell lung cancer s/p R lower lobectomy and chemotherapy
followed at [facility].
Last immunotherapy was a week prior to admission
Multiple hepatic metastasis, bilateral adrenal nodules concerning for adrenal metastasis.
# Moderate right pleural effusion
Rpt CXR

#Essential Hypertension-metoprolol and Cardizem. valsartan Stopped.
#Depression/anxiety-continue Wellbutrin and Lexapro
#Hypothyroidism-continue Synthroid
#Overactive bladder-oxybutynin
#Wedge-shaped focus of hypoattenuation within the spleen, which may represent prior splenic infarct or less likely splenic metastasis.
#History of diverticulitis status post colon resection
#History of breast cancer status postlumpectomy/radiation
#History of migraines
#Sleep apnea-CPAP intolerant
#Hypoalbuminemia
#DDD/Arthritis
#Ex Smoker
#DVT Prophylaxis- Xarelto
#Full CODE
Discussed with nursing at bedside
Left a message for daughter Rylee
Anticipated Discharge: Within 24 hours
Subjective/Interval History
-
Date of Service: December 21, 2023
Objective Data
-
Labs:
Laboratory Results
12/21/23
04:34
Sodium 130 L
Potassium 3.8
Chloride 92 L
Carbon Dioxide 32 H
BUN 10
Creatinine 0.6
Glucose 86
Calcium 8.6
Vital Signs:
Vital Signs
Temp Pulse Resp BP Pulse Ox
97.4 F 108 18 134/79 93
12/21/23 07:00 12/21/23 08:58 12/21/23 07:00 12/21/23 08:58 12/21/23 08:30
I&O
12/20/23 12/21/23 12/22/23
06:59 06:59 06:59
Intake Total 1000 / 1000 940 / 940
Output Total 100 / 100
Balance 900 / 900 940 / 940
[2023-12-21 12:21] LABS: Osmolality Serum 271 mOsm/kg (275-300)
[2023-12-21 12:36] LABS: Vitamin D, 25-OH*** < 12.8 ng/mL (30-80)
[2023-12-21 13:09] LABS: Vitamin B12 872 pg/ml (239-931)
[2023-12-21 15:00] VITALS: BP 105/61
--- NOTE | 2023-12-21 16:10 | CM ---
IV/Meds. Discharge Plan of Care: Home with [facility] and PT.
[2023-12-21] MEDS: KLOR-CON 20 MEQ PO (17:08)
[2023-12-21] MEDS: XARELTO 20 MG PO (17:08)
[2023-12-21] MEDS: DRISDOL (VITAMIN D2) 50000 UNITS PO (17:08)
[2023-12-21] MEDS: LASIX 20 MG IV (17:11)
[2023-12-21] MEDS: FLUSH (NSS) 2 FLUSH IV (17:11)
[2023-12-21 17:15] LABS: Osmolality Urine 438 mOsm/kg (300-900)
[2023-12-21 17:21] LABS: Urine Sodium 101 mmol/L (30-90)
[2023-12-21 19:55] VITALS: BP 114/64
[2023-12-21] MEDS: ULTRAM 50 MG PO (23:01)
[2023-12-21 23:04] VITALS: BP 125/72
[2023-12-22] VITALS (7 sets, daily range): BP systolic 105–118; BP diastolic 53–60; PULSE 67; O2SAT 93
--- NOTE | 2023-12-22 03:28 | PTCARENOTE ---
pt reports having a very small bm.
pt on tele SR w/ in the 60's- confirmed w/ ekg that she converted to NSR.
[2023-12-22] MEDS: SYNTHROID 125 MCG PO (06:03)
[2023-12-22 06:29] LABS: Blood Urea Nitrogen 13 mg/dl (7-17); Calcium 8.5 mg/dl (8.4-10.2); Carbon Dioxide 32 mmol/L (22-30); Chloride 94 mmol/L (98-107); Estimated Creatinine Clearance 50 ml/min; Glucose 83 mg/dl (70-99); Potassium 3.8 mmol/L (3.5-5.1); Sodium 129 mmol/L (135-145); eGFR > 60.00
--- NOTE | 2023-12-22 07:24 | W.PN.GS2 ---
Today's Communication / Plan
-
-- Milk of Mg and enema, needs to continue bowel regimen on DC
-- F/u 1 week for staple removal
Assessment / Plan
-
Patient is a 78 yo F POD#7 s/p exploratory laparotomy, partial cecectomy, open primary ventral incisional hernia repair
AFVSS, HR with better control, cards following
progressing well
labs stable
-- Milk of magnesia daily, continue daily MiraLAX, discussed importance of continuing these on DC
-- continue LRD
-- Pain control: Tylenol, Toradol, Buprenorphine patch; prn Tramadol/dilaudid.
-- Medical management and dispo planning as per primary team
-- Clear for d/c from surgical standpoint, will need to follow-up with Dr. Diaz in 1 week for staple removal.
Subjective Data
-
Date of Service: December 22, 2023
Reports passing small hard stools with milk of magnesia. No nausea or vomiting. No worsening abdominal pain. Reports passing small amounts of flatus. Ambulating.
Objective Data
-
Intake and Output
12/21/23 12/22/23 12/23/23
06:59 06:59 06:59
Intake Total 940 / 940 720 / 720
Output Total 200 / 200
Balance 940 / 940 520 / 520
Intake:
Oral fluids 940 / 940 720 / 720
Output:
Urine, Voided 200 / 200
Other:
Number of approximated MODERATE 1 4
amounts of urine
Number of approximated LARGE 1
amounts of urine
How many times incontinent 1
SMALL amount urine
Vital Signs
Temp Pulse Resp BP Pulse Ox
98.3 F 68 16 118/54 98
12/22/23 03:51 12/22/23 03:51 12/22/23 03:51 12/22/23 03:51 12/22/23 03:51
Lab Results
12/20/23 10:41
12/22/23 04:45
Calcium 8.5 mg/dl (8.4-10.2) 12/22/23 04:45
Magnesium 1.3 mg/dl (1.6-2.3) L 12/16/23 04:31
Total Bilirubin 0.5 mg/dl (0.2-1.3) 12/14/23 21:42
AST 30 U/L (14-36) 12/14/23 21:42
ALT 17 U/L (0-35) 12/14/23 21:42
Alkaline Phosphatase 149 U/L (38-126) H 12/14/23 21:42
Total Protein 6.0 g/dl (6.3-8.2) L 12/14/23 21:42
Albumin 3.3 g/dl (3.5-5.0) L 12/14/23 21:42
Physical Exam
-
Gen: NAD
Abd: soft, NT, ND, non-peritoneal, incision c/d/i - no erythema, ecchymosis or drainage
[2023-12-22 07:27] LABS: Free T4 1.19 ng/dl (0.78-2.19)
--- NOTE | 2023-12-22 07:56 | W.PN.CD ---
Today's Communication / Plan
-
- cardiac issues stable and I will sign off.
- MEDS: Furosemide 40 po qd prn, Toprol XL 75 po BID (new dose), diltiazem 180 po BID (new med), Xarelto 20 po qd pm (new dose)
- Follow up: Dr. Carrillo on March 03 at 3:00 PM
Impression / Plan
-
78 yo female with PMH of persistent A fib on xarelto, chronic HFPEF, HTN is admitted with incarcerated ventral hernia s/p exploratory laparotomy, partial cecectomy and appendectomy, primary repair of ventral incisional hernia by 12/15/2023.
We are consulted for A fib with RVR.
# A fib with RVR, also typical atrial flutter => now NSR since 7:30 last night
-no sxs
-cont BB and diltiazem
-CHADS2-VASC = 5. Xarelto for OAC.
# HTN
-BP at goal: valsartan was stopped as outpatient due to CHASIDY
-monitor BP on Toprol and diltiazem
# Chronic HFPEF
-currently on lasix 40mg PO daily: looks euvolemic
-at home, she takes prn: can go back to this on discharge
-she experienced CHASIDY with daily lasix
-she experienced CHASIDY with Farxiga as outpatient
#Mild/moderate MR
-outpatient f/u
#Dispo
- cardiac issues stable and I will sign off.
- MEDS: Furosemide 40 po qd prn, Toprol XL 75 po BID (new dose), diltiazem 180 po BID (new med), Xarelto 20 po qd pm (new dose)
- Follow up: Dr. Carrillo on March 03 at 3:00 PM
She denies CP, palps, or dyspnea.
Studies:
Echo 07/2023: EF 65-70%, Stage I DD, mild/moderate MR, mild TR, PASP 48
Laboratory Data
12/20/23 12/22/23
10:41 04:45
Hgb 11.7 L
Sodium 129 L
Creatinine 0.8
Generic Name Dose Route Start Last Admin
Trade Name Deidre PRN Reason Stop Dose Admin
Furosemide 40 mg 12/19/23 08:00
Furosemide 40 Mg Tablet PO 01/16/24 07:59
DAILY LEI
Metoprolol Succinate 75 mg 12/19/23 20:00
Metoprolol 25 Mg Extended Release Tablet PO 01/16/24 19:59
BID LEI
Rivaroxaban 20 mg 12/20/23 18:00
Rivaroxaban 20 Mg Tablet PO 01/17/24 17:59
QPM LEI
Diltiazem HCl 180 mg 12/21/23 20:00
Diltiazem 180 Mg Extended Release (24 H) Capsule PO 01/18/24 19:59
BID LEI
Physical Exam
Vital Signs/Labs
Vital Signs
Temp Pulse Resp BP Pulse Ox
36.6 C 69 16 116/54 91
12/22/23 07:43 12/22/23 07:43 12/22/23 07:43 12/22/23 07:43 12/22/23 07:43
12/21/23 12/22/23 12/23/23
06:59 06:59 06:59
Actual Weight 138 lb 9 oz
12/20/23 10:41
12/22/23 04:45
PT 13.8 Sec (11.4-14.6) 12/15/23 05:41
INR 1.07 12/15/23 05:41
Magnesium 1.3 mg/dl (1.6-2.3) L 12/16/23 04:31
TSH 14.50 uIU/ml (0.47-4.68) H 12/21/23 04:34
Free T4 1.19 ng/dl (0.78-2.19) 12/22/23 04:45
Physical Exam
Constitutional: No acute distress
EENT: Anicteric and Moist mucous membranes
Cardiovascular: Rhythm & rate is regular, Pedal edema is absent, Systolic murmur absent and Diastolic murmur absent
Respiratory: Respiratory effort normal
Neuro/Psych: Alert
Data Reviewed
-
Date of Service: December 22, 2023
EKG: Other (SR)
[2023-12-22] MEDS: WELLBUTRIN XL (24 hour extended release) 300 MG PO (08:37)
[2023-12-22] MEDS: NEURONTIN 300 MG PO ×2 (08:38→20:16)
[2023-12-22] MEDS: CARDIZEM CD 180 MG PO ×2 (08:38→20:22)
[2023-12-22] MEDS: MIRALAX 17 GRAMS PO (08:39)
[2023-12-22] MEDS: LASIX 40 MG PO (08:39)
[2023-12-22] MEDS: MAGNESIUM OXIDE 500 MG PO (08:39)
[2023-12-22] MEDS: VITAMIN D3 (cholecalciferol) 50 MCG PO (08:39)
[2023-12-22] MEDS: TOPROL XL 75 MG PO ×2 (08:39→20:20)
[2023-12-22] MEDS: LEXAPRO 10 MG PO (08:39)
[2023-12-22] MEDS: DITROPAN 5 MG PO (08:39)
[2023-12-22] MEDS: FLUSH (NSS) 2 FLUSH IV (08:40)
[2023-12-22] MEDS: PROTONIX IV 40 MG IV (08:40)
[2023-12-22] MEDS: NSS (PRESERVATIVE FREE) 10 ML IV (08:40)
[2023-12-22] MEDS: SAMSCA 15 MG PO (10:15)
[2023-12-22] MEDS: MILK OF MAGNESIA 30 ML PO (10:17)
--- NOTE | 2023-12-22 11:40 | W.PN.HOSP.TC ---
Today's Communication/Plan
-
Synthroid adjusted
1 dose of Samsca ordered
Repeat BMP in the morning
Pulmonary evaluation to see if patient needs thoracentesis
Bowel regimen
Hopefully once patient has a bowel movement she can be discharged tomorrow
Assessment / Plan
Assessment / Plan
78-year-old female likely hernia admitted with abdominal pain found incarcerated hernia s/p surgery.
On examination awake and alert
Has not had a bowel movement
Cardiovascular system S1-S2 appreciated, irregular
Chest clear to auscultation
Abdomen ,bowel sounds, midline wound
No pedal edema
# Incarcerated ventral hernia-exploratory laparotomy, partial cecectomy and appendectomy, primary repair of ventral incisional hernia by 12/15/2023
Tolerating LR diet but appetite not great
No BM yet, bowel sounds present
f/u Hbg level, resumed back on Xarelto
PT OT recommended home with home health
MiraLAX and milk of magnesium
Dulcolax
Await bowel movement
# Hyponatremia
Increase Synthroid to 137 mcg
Rpt TFTS as OP in 6 weeks
Continue Lasix
Add a dose of Samsca
#Hypokalemia
replace PRN
# Chronic heart failure with preserved ejection fraction
Echo 08/03/2020 LV size function. EF 66%. Stage II diastolic dysfunction. Thickened mitral valves. Mitral valve-moderate MR. Mild TR. Pulmonary artery pressure 48 mmHg.
continue with statin, metoprolol,Lasix
# Paroxysmal atrial fibrillation/flutter
-Rates better
-EKG showing Atrial flutter with controlled rate
-Stopped Cardizem drip on 12/18
-Toprol Xl 75mg BID
-Xarelto resumed
-Cardizem increased to 180 mg twice daily
-Cardiology following
# Non-small cell lung cancer s/p R lower lobectomy and chemotherapy
followed at [facility].
Last immunotherapy was a week prior to admission december 01
Multiple hepatic metastasis, bilateral adrenal nodules concerning for adrenal metastasis.
# Moderate right pleural effusion
Rpt CXR shows same
Pt not Symptomatic
Get Pulm opinion whether needs Thoracentesis

#Essential Hypertension-metoprolol and Cardizem. valsartan Stopped.
#Depression/anxiety-continue Wellbutrin and Lexapro
#Hypothyroidism-continue Synthroid
#Overactive bladder-oxybutynin
#Wedge-shaped focus of hypoattenuation within the spleen, which may represent prior splenic infarct or less likely splenic metastasis.
#History of diverticulitis status post colon resection
#History of breast cancer status postlumpectomy/radiation
#History of migraines
#Sleep apnea-CPAP intolerant
#Hypoalbuminemia
#DDD/Arthritis
#Ex Smoker
#DVT Prophylaxis- Xarelto
#Full CODE
Spoke to patient's daughter Rylee updated regarding thyroid, constipation, right pleural effusion, discharge plan
Anticipated Discharge: Within 24 hours
Subjective/Interval History
-
Date of Service: December 22, 2023
Objective Data
-
Labs:
Laboratory Results
12/22/23
04:45
Sodium 129 L
Potassium 3.8
Chloride 94 L
Carbon Dioxide 32 H
BUN 13
Creatinine 0.8
Glucose 83
Calcium 8.5
Vital Signs:
Vital Signs
Temp Pulse Resp BP Pulse Ox
98.2 F 67 16 110/53 94
12/22/23 11:23 12/22/23 11:23 12/22/23 11:23 12/22/23 11:23 12/22/23 11:23
I&O
12/21/23 12/22/23 12/23/23
06:59 06:59 06:59
Intake Total 940 / 940 720 / 720
Output Total 200 / 200
Balance 940 / 940 520 / 520
--- NOTE | 2023-12-22 12:04 | CM ---
Patient seen bedside.
Patient had Tono in the past.
Patient denies VN needs at this time.
Per patient she is able to care for her colostomy and is ambulating independently.
IMM completed.
Spouse will transport.
Plan: home no needs.
--- NOTE | 2023-12-22 12:07 | CM ---
Patient seen bedside.
Per patient tolerating diet, had enema this am.
PT/OT recommending home health.
IMM completed.
Plan: Home with [facility] when medically stable.
[2023-12-22] MEDS: KCL 20 MEQ PO (12:22)
[2023-12-22] MEDS: DULCOLAX 10 MG RECTAL (12:23)
--- NOTE | 2023-12-22 13:27 | CON.PUL ---
Addendum entered and electronically signed by Cindy Barton DO 12/22/23 14:43:
Obtain VBG
Suspect YARELIS/[facility]
Original Note:
Consultation
Consultation Request
Date/Time Consultation Requested: 12/22/23
Date/Time Consultation Performed: 12/22/23
Performing Provider: Oralia
Reason for Consultation: Pleural effusion
Medical History
-
History of Present Illness:
Patient is a 78-year-old female with history of metastatic non-small cell lung cancer status post right lower lobe resection February 2023, chronic heart failure with preserved ejection fraction, atrial fibrillation presenting with 1 day onset of acute
intermittent colicky abdominal pain. She has intermittent bulging of periumbilical hernia for which she has undergone exploratory laparotomy, partial cecectomy and appendectomy with primary repair of incisional hernia on 12/15/2023. It was noted on
her chest x-ray that she has had chronic right pleural effusion. She is currently asymptomatic, stable on room air.
On review of her imaging, she has moderate size right hiatal hernia causing elevation of right hemidiaphragm. She had a recent chest ultrasound demonstrating very small pleural effusion, not amenable for thoracentesis. This is likely from postop
atelectasis from her right lower lobe resection. She has followed with pulmonary in the past in [place]. No records of PFTs for review.
Unknown if she has prior lung disease including COPD or asthma.
Past Medical History
Past Medical History: Other (see list below)
Social History
Tobacco: Former Smoker
Alcohol: None
Drug: None
Family History
Family History: Reviewed & Not Pertinent
Allergies / Home Medications
Allergies
Allergy/AdvReac Type Severity Reaction Status Date / Time
morphine Allergy Unknown Verified 12/14/23 21:17
Penicillins Allergy Rash Verified 12/14/23 21:17
Home Medications
Medication Instructions Recorded Confirmed Last Taken Type
Magic Mouthwash 5 ml PO Q6HPRN PRN mouth sores 08/01/23 12/15/23 07/29/23 History
acetaminophen 650 mg 650 mg PO DAILY Pain 08/01/23 12/15/23 07/31/23 History
tablet,extended release
bupropion HCl 300 mg 24 hr tablet, 300 mg PO DAILY Depression 08/01/23 12/15/23 07/31/23 History
extended release
escitalopram oxalate 10 mg tablet 10 mg PO DAILY Depression 08/01/23 12/15/23 07/31/23 History
gabapentin 100 mg capsule 300 mg PO BID Neurological 08/01/23 12/15/23 07/31/23 History
Condition
levothyroxine 125 mcg tablet 125 mcg PO DAILY Thyroid 08/01/23 12/15/23 07/31/23 History
lidocaine-prilocaine 2.5 %-2.5 % 1 applic topical DAILYPRN PRN mild 08/01/23 12/15/23 07/29/23 History
topical cream pain
metoprolol succinate 50 mg 50 mg PO BID Heart Failure 08/01/23 12/15/23 07/31/23 History
tablet,extended release 24 hr
oxybutynin chloride 5 mg tablet 5 mg PO DAILY Urinary Issue 08/01/23 12/15/23 07/31/23 History
prochlorperazine maleate 10 mg 10 mg PO QID PRN nausea/vomiting 08/01/23 12/15/23 2 Weeks Ago History
tablet ~07/18/23
rivaroxaban 15 mg tablet (Xarelto) 15 mg PO QPM Blood Clot 08/01/23 12/15/23 07/30/23 History
Prevention/Tx
magnesium oxide 500 mg PO DAILY #30 tabs 08/04/23 12/15/23 Unknown Rx
valsartan 320 mg tablet 160 mg PO DAILY Blood Pressure #30 08/04/23 12/15/23 Unknown Rx
tabs
furosemide 40 mg tablet 40 mg PO DAILY Fluid 12/16/23 12/15/23 Unknown History
Retention/Swelling
levofloxacin 500 mg tablet 500 mg PO DAILY Infection 12/16/23 12/15/23 Unknown History
Review of Systems
-
History Source: Patient
All other systems: Negative unless noted
Vitals / Labs / Diagnostic Testing
Vital Signs
Temp Pulse Resp BP Pulse Ox
98.2 F 67 16 110/53 94
12/22/23 11:23 12/22/23 11:23 12/22/23 11:23 12/22/23 11:23 12/22/23 11:23
Lab Data
12/20/23 10:41
12/22/23 04:45
Diagnostic Testing:
Physical Exam
-
HEENT: Normocephalic, Anicteric and Moist Mucous Membranes
Cardiovascular: S1/S2, Regular Rhythm and Other (PORT in place)
Respiratory: Clear, Non-Labored Respirations and Other (decreased BS on R)
GI: Soft, Non Distended, Tender (at incision) and Normal Bowel Sounds
Neurology: Awake, Alert, Oriented, AO x 3 and No Motor Deficits
Skin: Warm, Dry and Good Color
General: Comfortable and Other (NAD)
Assessment
-
Patient is a 78-year-old female with history of metastatic non-small cell lung cancer status post right lower lobe resection February 2023, chronic heart failure with preserved ejection fraction, atrial fibrillation presenting with 1 day onset of acute
intermittent colicky abdominal pain. She has intermittent bulging of periumbilical hernia for which she has undergone exploratory laparotomy, partial cecectomy and appendectomy with primary repair of incisional hernia on 12/15/2023. It was noted on
her chest x-ray that she has had chronic right pleural effusion. We are consulted for eval.
Incarcerated ventral incisional hernia s/p Exploratory laparotomy, partial cecectomy and appendectomy, primary repair of ventral incisional hernia 12/15/23
Intermittent colicky abdominal pain x 1 day
Hyponatremia
Hypokalemia
Chronic R sided pleural effusion
Conditions present WASTE REMOVALIST
Chronic �HFpEF
Afib� �
History of metastatic NSCL Ca s/p RLL resection February 2023� �
Former smoker
HTN�
Hypothyroidism
Depression� �
Cholecystectomy�1997� �
Bilat knee replacement� � 2017�
Sleep apnea-CPAP intolerant
s/p colon resection - diverticulitis� � 2018� �
s/p lumpectomy, right breast - ca� � 2009� �
s/p bladder suspension� � 1997� �
Cataract removal� � 2018� �
Plan
No oxygen was needed on admission, currently saturating >90% on RA
Prior history of lung disease is noted including--
Met NSCLC s/p RLL resection February 2023
No prior PFTs for review. She has followed with pulmonary in the past in [place]
Unknown if she has prior lung disease including COPD or asthma.
On review of her imaging, she has moderate size right hiatal hernia causing elevation of right hemidiaphragm- this is chronic
She had a recent chest ultrasound 08/04/23 demonstrating very small pleural effusion, not amenable for thoracentesis.
This is likely from postop atelectasis from her right lower lobe resection
Her pleural effusion appears falsely larger than in actuality
We can obtain dedicated CT chest, but her lung AP windows show HH very clearly to me
I do not think there is anything to do regarding her effusion at this time
ECHO results in past reviewed--normal function
Mild-mod MR, moderate PH
Following with cards
Lasix as needed
Will need outpatient pulmonary evaluation in our office for PFTs and 6MWT
Reviewed with patient
Will resume chemo again this week at discharge
Following with Onc
Port in place
We will follow
Diagnostic Data
Chest X-Ray: 12/21/23- Stable moderately large right pleural effusion; Small new left pleural effusion
12/15/23- Moderate right pleural effusion, without significant interval change from chest radiograph of August 03, 2023. Subtle small vertical band of increased opacity in the medial left lower lung, compatible with focal atelectasis.
Chest US 08/04/23- 1.Small right pleural effusion. The amount of fluid was considered inadequate for safe thoracentesis, therefore thoracentesis was not performed.
2. Opacity at the right lung base on chest x-ray was likely related to elevation of right hemidiaphragm, also appreciated on prior CT.
CT Scan: CHEST 07/31/23- . No evidence of pulmonary embolism.
2. Extensive scattered tree-in-bud/groundglass densities throughout the right lung consistent with infectious/inflammatory process. Diffuse mosaic attenuation pattern throughout the lungs bilaterally may reflect areas of air trapping and/or
pulmonary edema. Small right pleural effusion with loculated component.
3. Mildly displaced lateral right fourth and fifth rib fractures.
AP 12/14/23- . Large umbilical hernia, which contains a portion of the colon. The colon proximal to the hernia sac is mildly dilated, with associated fecal retention, and the colon distal to the hernia sac is relatively decompressed. Retention of
oral contrast within the hernia sac, likely resulting from a prior imaging study. Overall, findings are concerning for at least partial colonic obstruction related to umbilical hernia. Evaluation for complete obstruction is limited without oral
contrast.
2. Multiple hepatic masses likely reflective of hepatic metastasis.
3. Bilateral adrenal nodules concerning for adrenal metastasis.
4. Wedge-shaped focus of hypoattenuation within the spleen, which may represent prior splenic infarct or less likely splenic metastasis.
5. Small right pleural effusion, partially imaged, likely with some loculation anteriorly.
Echo: 08/03/23- Normal left ventricular size, wall thickness and systolic function. No regional�wall motion abnormalities are seen. LV ejection fraction is 66% by Segura's�method of discs.� Stage II diastolic dysfunction suggestive of
abnormal�relaxation and increased filling pressures.�Mitral annular calcification. Thickened mitral valve leaflets. Mitral valve�opens normally. Mild to moderate mitral regurgitation.�Mildly dilated left atrium. Tricuspid valve opens normally. Mild
tricuspid regurgitation. Estimated�pulmonary artery pressure of 48 mmHg, assuming a right atrial pressure of 3�mmHg.
PFT's:
Reports and relevant images were personally reviewed.
--- NOTE | 2023-12-22 14:41 | VNURNOTE ---
Home Health Liaison met with patient at 1230 to discuss [facility] nurse/therapy, visits, schedule and homebound status. Patient is agreeable and understands that visits at home will be 2-3 x per week to assess and teach medical management.
[facility] brochure provided with contact information. Patient is aware that [facility] will contact them for start of care in 1-2 days after discharge from .
[facility] referral has been accepted in [facility].
[2023-12-22 15:20] LABS: Venous Blood Gas B.E. 11.8 mmol/L (-4 to +4); Venous Blood Gas HCO3 37.1 mmol/L (22-27); Venous Blood Gas O2 Sat % 99.5 %; Venous Blood Gas pCO2 51 mmHg (35-48); Venous Blood Gas pH 7.47 (7.32-7.43); Venous Blood Gas pO2 133 mmHg (30-50)
[2023-12-22] MEDS: ULTRAM 50 MG PO (16:55)
[2023-12-22] MEDS: XARELTO 20 MG PO (16:56)
[2023-12-22] MEDS: TYLENOL 650 MG PO (21:58)
[2023-12-23 03:49] VITALS: BP 121/61
--- NOTE | 2023-12-23 03:57 | DOWNTIME ---
There was a [employer] Downtime on 12/23/2023 from 0100 to 12/23/2023 at 0322. Downtime documentation of patient's care, including medication administrations, has been reconciled in the electronic record per guidelines. Refer to the
patient's paper chart under the miscellaneous tab to see printed paper medication records and downtime forms.
[2023-12-23 05:07] VITALS: BMI 23.2
[2023-12-23] MEDS: SYNTHROID 137 MCG PO (06:10)
[2023-12-23 07:06] LABS: Blood Urea Nitrogen 14 mg/dl (7-17); Calcium 8.8 mg/dl (8.4-10.2); Carbon Dioxide 33 mmol/L (22-30); Chloride 94 mmol/L (98-107); Estimated Creatinine Clearance 57 ml/min; Glucose 94 mg/dl (70-99); Potassium 3.8 mmol/L (3.5-5.1); Sodium 133 mmol/L (135-145); eGFR > 60.00
[2023-12-23 07:45] VITALS: BP 126/61
[2023-12-23] MEDS: LEXAPRO 10 MG PO (09:07)
[2023-12-23] MEDS: WELLBUTRIN XL (24 hour extended release) 300 MG PO (09:07)
[2023-12-23] MEDS: LASIX 40 MG PO (09:07)
[2023-12-23] MEDS: PROTONIX 40 MG PO (09:07)
[2023-12-23] MEDS: NEURONTIN 300 MG PO (09:07)
[2023-12-23] MEDS: TOPROL XL 75 MG PO (09:08)
[2023-12-23] MEDS: DITROPAN 5 MG PO (09:08)
[2023-12-23] MEDS: VITAMIN D3 (cholecalciferol) 50 MCG PO (09:08)
[2023-12-23] MEDS: CARDIZEM CD 180 MG PO (09:08)
[2023-12-23] MEDS: MAGNESIUM OXIDE 500 MG PO (09:08)
[2023-12-23] MEDS: MIRALAX 17 GRAMS PO (09:10)
--- NOTE | 2023-12-23 10:15 | W.PN.HOSP.TC ---
Today's Communication/Plan
-
Discharge
Assessment / Plan
Assessment / Plan
78-year-old female likely hernia admitted with abdominal pain found incarcerated hernia s/p surgery.
On examination awake and alert
Had several Bms
Cardiovascular system S1-S2 appreciated, irregular
Chest clear to auscultation
Abdomen ,bowel sounds, midline wound
No pedal edema
# Incarcerated ventral hernia-exploratory laparotomy, partial cecectomy and appendectomy, primary repair of ventral incisional hernia by 12/15/2023
Has had several Bms
f/u Hbg level, resumed back on Xarelto
PT OT recommended home with home health
# Hyponatremia
Increased Synthroid to 137 mcg
Rpt TFTS as OP in 6 weeks
Continue Lasix
Sodium better
#Hypokalemia
replace PRN
# Chronic heart failure with preserved ejection fraction
Echo 08/03/2020 LV size function. EF 66%. Stage II diastolic dysfunction. Thickened mitral valves. Mitral valve-moderate MR. Mild TR. Pulmonary artery pressure 48 mmHg.
continue with statin, metoprolol,Lasix
# Paroxysmal atrial fibrillation/flutter
-Rates better
-EKG showing Atrial flutter with controlled rate
-Stopped Cardizem drip on 12/18
-Toprol Xl 75mg BID
-Xarelto resumed
-Cardizem increased to 180 mg twice daily
-Ok to do same dose per cards
# Non-small cell lung cancer s/p R lower lobectomy and chemotherapy
followed at [facility].
Last immunotherapy was a week prior to admission december 01
Multiple hepatic metastasis, bilateral adrenal nodules concerning for adrenal metastasis.
# Moderate right pleural effusion
Rpt CXR shows same
Pt not Symptomatic
No Thoracentesis per Pulm
Daughter aware.

#Essential Hypertension-metoprolol and Cardizem. valsartan Stopped.
#Depression/anxiety-continue Wellbutrin and Lexapro
#Hypothyroidism-continue Synthroid
#Overactive bladder-oxybutynin
#Wedge-shaped focus of hypoattenuation within the spleen, which may represent prior splenic infarct or less likely splenic metastasis.
#History of diverticulitis status post colon resection
#History of breast cancer status postlumpectomy/radiation
#History of migraines
#Sleep apnea-CPAP intolerant
#Hypoalbuminemia
#DDD/Arthritis
#Ex Smoker
#DVT Prophylaxis- Xarelto
#Full CODE
Spoke to patient's daughter Rylee updated regarding thyroid, constipation, right pleural effusion, discharge plan 12/22/23
D/W RN
Patient is aware that she needs to prevent constipation
Discharge follow-up thyroid function all discussed
Discussed with case management
Discharge time 37 min
Anticipated Discharge: Today
Subjective/Interval History
-
Date of Service: December 23, 2023
Objective Data
-
Labs:
Laboratory Results
12/23/23
05:51
Sodium 133 L
Potassium 3.8
Chloride 94 L
Carbon Dioxide 33 H
BUN 14
Creatinine 0.7
Glucose 94
Calcium 8.8
Vital Signs:
Vital Signs
Temp Pulse Resp BP Pulse Ox
97.9 F 63 16 132/59 91
12/23/23 07:45 12/23/23 09:08 12/23/23 07:45 12/23/23 09:08 12/23/23 07:45
I&O
12/22/23 12/23/23 12/24/23
06:59 06:59 06:59
Intake Total 720 / 720 960 / 960
Output Total 200 / 200
Balance 520 / 520 960 / 960
--- NOTE | 2023-12-23 10:29 | W.DS.TRANS ---
Addendum entered and electronically signed by Penny Mac MD 12/24/23 08:20:
Dictation- [id number]
Original Note:
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
-
Discharge Instructions:
Discharge Diagnosis/Procedures Incarcerated ventral hernia with exploratory
laparotomy with appendectomy, partial cecectomy
and primary hernia repair, hyponatremia, chronic
heart failure, atrial fibrillation, known small
cell lung cancer, right pleural effusion,
hypertension, anxiety depression, hypothyroidism
, overactive bladder, diverticulosis, history of
breast cancer, migraines, sleep apnea CPAP
intolerant, vitamin D deficiency
Diet Low Fiber,Restrict fluids to 48 oz,2 Gram Sodium
Activity No strenuous activity
Additional Activity Do not lift more than 15 pounds for 4-6 weeks
Driving Restrictions No driving for 1 week
Bathing Restrictions OK to Shower
Blood Work Thyroid function tests 6 weeks. BMP in 1 week
Other Services VN
Wound Care Ok to shower and wash your incisions with soap
and water, jacklyn will be removed in the office
2-3 weeks after your surgery date
Specialty Instructions Weigh Daily
Instructions:
Stand-Alone Forms:
Changes to Home Medications: Yes
Discharge Medications:
DC Medications w/original date entered in [facility]
Magic Mouthwash 5 ml PO Q6HPRN PRN mouth sores 08/01/23
acetaminophen 650 mg tablet,extended release 650 mg PO DAILY Pain 08/01/23
bupropion HCl 300 mg 24 hr tablet, extended release 300 mg PO DAILY Depression 08/01/23
escitalopram oxalate 10 mg tablet 10 mg PO DAILY Depression 08/01/23
gabapentin 100 mg capsule 300 mg PO BID Neurological Condition 08/01/23
lidocaine-prilocaine 2.5 %-2.5 % topical cream 1 applic topical DAILYPRN PRN mild pain 08/01/23
oxybutynin chloride 5 mg tablet 5 mg PO DAILY Urinary Issue 08/01/23
prochlorperazine maleate 10 mg tablet 10 mg PO QID PRN nausea/vomiting 08/01/23
magnesium oxide 500 mg PO DAILY #30 tabs 08/04/23
furosemide 40 mg tablet 40 mg PO DAILY Fluid Retention/Swelling 12/16/23
diltiazem HCl 180 mg capsule,extended release 24 hr 180 mg PO BID Arrhythmia #60 caps 12/22/23
levothyroxine 137 mcg tablet 137 mcg PO DAILY@0730 Thyroid #30 tabs 12/22/23
metoprolol succinate 25 mg tablet,extended release 24 hr 75 mg (3 x 25 mg) PO BID Arrhythmia #60 tabs 12/22/23
rivaroxaban 20 mg tablet (Xarelto) 20 mg PO QPM Blood clot prevention/tx #30 tabs 12/22/23
Butran 10 mg transdermal WEEKLY Pain ##0 12/23/23
MiraLAX 17 g p.o. daily
Home Medication Changes
Xarelto dose changed
Metoprolol is new
Diltiazem dose changed
MiraLAX new
Pending Results: No
--- NOTE | 2023-12-23 10:51 | CM ---
Patient has been medically cleared for discharge to home with [facility] and PT services. Patient arranged for transport home.
[2023-12-23 11:14] VITALS: BP 135/67
--- NOTE | 2023-12-23 12:26 | W.PN.PUL3 ---
Today's Communication / Plan
-
Doing well today, no complaints/stable on room air
Can follow pleural effusion as OP if symptoms develop
Outpatient pulmonary FU recommended
Discharge planning per team
Assessment
-
Patient is a 78-year-old female with history of metastatic non-small cell lung cancer status post right lower lobe resection February 2023, chronic heart failure with preserved ejection fraction, atrial fibrillation presenting with 1 day onset of acute
intermittent colicky abdominal pain. She has intermittent bulging of periumbilical hernia for which she has undergone exploratory laparotomy, partial cecectomy and appendectomy with primary repair of incisional hernia on 12/15/2023. It was noted on
her chest x-ray that she has had chronic right pleural effusion. We are consulted for eval.
Incarcerated ventral incisional hernia s/p Exploratory laparotomy, partial cecectomy and appendectomy, primary repair of ventral incisional hernia 12/15/23
Intermittent colicky abdominal pain x 1 day
Hyponatremia
Hypokalemia
Chronic R sided pleural effusion
Conditions present RV B[employer] MECH[employer]IC
Chronic �HFpEF
Afib� �
History of metastatic NSCL Ca s/p RLL resection February 2023� �
Former smoker
HTN�
Hypothyroidism
Depression� �
Cholecystectomy�1997� �
Bilat knee replacement� � 2017�
Sleep apnea-CPAP intolerant
s/p colon resection - diverticulitis� � 2018� �
s/p lumpectomy, right breast - ca� � 2009� �
s/p bladder suspension� � 1997� �
Cataract removal� � 2018� �
Plan
No oxygen was needed on admission, currently saturating >90% on RA
Prior history of lung disease is noted including--
Met NSCLC s/p RLL resection February 2023
No prior PFTs for review. She has followed with pulmonary in the past in [place]
Unknown if she has prior lung disease including COPD or asthma.
On review of her imaging, she has moderate size right hiatal hernia causing elevation of right hemidiaphragm- this is chronic
She had a recent chest ultrasound 08/04/23 demonstrating very small pleural effusion, not amenable for thoracentesis.
This is likely from postop atelectasis from her right lower lobe resection
Her pleural effusion appears falsely larger than in actuality
We can obtain dedicated CT chest, but her lung AP windows show HH very clearly to me
I do not think there is anything to do regarding her effusion at this time
I reviewed this again with her today
ECHO results in past reviewed--normal function
Mild-mod MR, moderate PH
Following with cards
Lasix as needed
Will need outpatient pulmonary evaluation in our office for PFTs and 6MWT
Reviewed with patient
Will resume chemo again this week at discharge
Following with Onc
Port in place
Discharge planning per team
OP FU recommended
Diagnostic Data
Chest X-Ray: 12/21/23- Stable moderately large right pleural effusion; Small new left pleural effusion
12/15/23- Moderate right pleural effusion, without significant interval change from chest radiograph of August 03, 2023. Subtle small vertical band of increased opacity in the medial left lower lung, compatible with focal atelectasis.
Chest US 08/04/23- 1.Small right pleural effusion. The amount of fluid was considered inadequate for safe thoracentesis, therefore thoracentesis was not performed.
2. Opacity at the right lung base on chest x-ray was likely related to elevation of right hemidiaphragm, also appreciated on prior CT.
CT Scan: CHEST 07/31/23- 1. No evidence of pulmonary embolism.
2. Extensive scattered tree-in-bud/groundglass densities throughout the right lung consistent with infectious/inflammatory process. Diffuse mosaic attenuation pattern throughout the lungs bilaterally may reflect areas of air trapping and/or
pulmonary edema. Small right pleural effusion with loculated component.
3. Mildly displaced lateral right fourth and fifth rib fractures.
AP 12/14/23- 1. Large umbilical hernia, which contains a portion of the colon. The colon proximal to the hernia sac is mildly dilated, with associated fecal retention, and the colon distal to the hernia sac is relatively decompressed. Retention of
oral contrast within the hernia sac, likely resulting from a prior imaging study. Overall, findings are concerning for at least partial colonic obstruction related to umbilical hernia. Evaluation for complete obstruction is limited without oral
contrast.
2. Multiple hepatic masses likely reflective of hepatic metastasis.
3. Bilateral adrenal nodules concerning for adrenal metastasis.
4. Wedge-shaped focus of hypoattenuation within the spleen, which may represent prior splenic infarct or less likely splenic metastasis.
5. Small right pleural effusion, partially imaged, likely with some loculation anteriorly.
Echo: 08/03/23- Normal left ventricular size, wall thickness and systolic function. No regional�wall motion abnormalities are seen. LV ejection fraction is 66% by Segura's�method of discs.� Stage II diastolic dysfunction suggestive of
abnormal�relaxation and increased filling pressures.�Mitral annular calcification. Thickened mitral valve leaflets. Mitral valve�opens normally. Mild to moderate mitral regurgitation.�Mildly dilated left atrium. Tricuspid valve opens normally. Mild
tricuspid regurgitation. Estimated�pulmonary artery pressure of 48 mmHg, assuming a right atrial pressure of 3�mmHg.
PFT's:
Reports and relevant images were personally reviewed.
Subjective Data
-
Date of Service:
Date of Service: December 23, 2023
Chief Complaint: Pulmonary Follow Up
Subjective:
patient seen this AM
no new events/complaints
Objective Data
Data Reviewed
Vital Signs / I&O / Oxygen:
Vital Signs
Temp Pulse Resp BP Pulse Ox
97.6 F 64 17 135/67 93
12/23/23 11:14 12/23/23 11:14 12/23/23 11:14 12/23/23 11:14 12/23/23 11:14
Intake and Output
12/22/23 12/23/23 12/24/23
06:59 06:59 06:59
Intake Total 720 / 720 960 / 960
Output Total 200 / 200
Balance 520 / 520 960 / 960
SaO2 93
Nasal Cannula flow liters per 2
minute
Physical Exam
General: Comfortable and Other (NAD)
HEENT: Normocephalic, Anicteric and Moist Mucous Membranes
Cardiovascular: S1-S2 and Regular Rhythm
Respiratory: Clear, Non-Labored Respirations and Other (decreased BS on R)
GI: Soft, Non Distended and Non Tender
Neurology: Awake, Alert, Oriented, AO x 3 and No Motor Deficits
Skin: Warm, Dry and Good Color
Labs/Micro/Reports
Lab Data
12/20/23 10:41
12/23/23 05:51
== END 2023-12-23 14:15 | disposition home health service (06) | DRG 330 ==
LOC: 2 SOUTH 05:17
PROVIDERS: Emergency Medicine; Hospitalist; Surgery; ADMITTING PHYSICIAN Internal Medicine; ATTENDING PHYSICIAN Hospitalist; CONSULT PHYSICIAN Internal Medicine; CONSULT PHYSICIAN Surgery; EMERGENCY PHYSICIAN Emergency Medicine
PROC: 0DTJ0ZZ Resection of Appendix, Open Approach (ICD-10-PCS; 2023-12-15)
PROC: 0DBH0ZZ Excision of Cecum, Open Approach (ICD-10-PCS; 2023-12-15)
PROC: 0DQV0ZZ Repair Mesentery, Open Approach (ICD-10-PCS; 2023-12-15)
DX: K43.6 Other and unspecified ventral hernia with obstruction, without gangrene (principal); C34.90 Malignant neoplasm of unspecified part of unspecified bronchus or lung; E22.2 Syndrome of inappropriate secretion of antidiuretic hormone; I48.19 Other persistent atrial fibrillation; I50.32 Chronic diastolic (congestive) heart failure; K57.92 Diverticulitis of intestine, part unspecified, without perforation or abscess without bleeding; D62 Acute posthemorrhagic anemia; C78.7 Secondary malignant neoplasm of liver and intrahepatic bile duct; I48.92 Unspecified atrial flutter; K42.9 Umbilical hernia without obstruction or gangrene; K43.0 Incisional hernia with obstruction, without gangrene; Z87.891 Personal history of nicotine dependence; I11.0 Hypertensive heart disease with heart failure; E03.9 Hypothyroidism, unspecified; F32.A Depression, unspecified; F41.9 Anxiety disorder, unspecified; Z79.01 Long term (current) use of anticoagulants; E87.6 Hypokalemia; N32.81 Overactive bladder; G47.30 Sleep apnea, unspecified
CPT/HCPCS: 88307; 71045; 71046; 74177; 80048; 80053; 82306; 82533; 82607; 82805; 83735; 83930; 83935; 84300; 84439; 84443; 85025; 85027; 85610; 93005; 96361; 96374; 96375; 97116; 97162; 97166; 97530; 97535; 99285; J2997; Q9967

== ENCOUNTER 2024-01-11 00:50 | Inpatient (IN) | payer MEDICARE, OTHER, SELFPAY ==
[2024-01-10 18:30] VITALS: BP 94/57
[2024-01-10 19:57] VITALS: BMI 23.0
[2024-01-10 20:00] VITALS: BP 107/69
--- NOTE | 2024-01-10 20:42 | ED.GENMED ---
History of Present Illness
General
Chief Complaint: Skin Problem
Time Seen by Provider: 01/10/24 20:04
Travel History
Have you had any contact with someone who has COVID-19?: No
Do you have any symptoms of coronavirus? Fever > 100 degrees, chills, cough, shortness of breath, sore throat, loss of taste or smell, muscle aches, or headache?: No
History of Present Illness
History of Present Illness:
78-year-old female with history of A-fib on Eliquis presents to the emergency department with her daughter for evaluation of progressively worsening generalized weakness and gait instability. She resides in a converted garage on the property of her
family, does have visiting nurses from this hospital to check on her. Was recommended to her earlier in the week that she consider assisted living. She had a fall earlier in the week and she could not make it all the way to the bathroom. She also
is essentially nonambulatory for the majority of the day and is concerned about developing sacral decubitus ulcers. Denies any fevers or chills. Admits that she does not eat or drink very well
Past History
Past History
ED Past Medical History: GERD, HTN, Hypothyroidism and Psychiatric (Depression)
ED Past Surgical History: Bowel resection, Cholecystectomy, Orthopedic (Braxton knee replacements), Urological (Bladder sling) and Other (Right Lumpectomy, Cataracts, Lung resection mid and lower lobe right)
Social History
Tobacco: Former smoker
Alcohol: None
Personal:
Living: with family
Review of Systems
Review of Systems
Allergies reviewed?: Yes
All Other Systems: ROS reviewed and negative except as documented in HPI and ROS
Phy Exam
Physical Exam
Physical Exam:
GEN: Well appearing, NAD, WDWN
HEENT: Oral mucosa moist, no scleral icterus
Cardiac: Tachycardic and irregular
Lung: No respiratory distress, no tachypnea
MSK: No gross deformity or injuries
Skin: Good color, no pallor or jaundice, no rashes. Stage II sacral decubitus ulcer, no erythema or discharge
Neuro: AO x3, moves all extremities freely
Psych: Calm, cooperative
Course
Orders/Labs/Results
Orders:
Orders
01/10/24 20:38
CT Head W/o Iv Contrast Urgent
Comment:
Reason For Exam: fall, on Eliquis
CR Chest - 2 Views Urgent
Comment:
Reason For Exam: weakness
01/10/24 20:41
Complete Blood Count/With Diff Urgent
01/10/24 22:15
Urinalysis Reflex To Culture Urgent
Date Specimen was Collected: 01/10/24
Time Specimen was Collected: 22:13
Urine Microscopic Reflex Cult Urgent
Urine Culture Urgent
RONNY Source: U
Specimen Description:
Date Specimen was Collected: 01/10/24
Time Specimen was Collected: 22:13
01/10/24 23:14
Comprehensive Metabolic Panel Urgent
01/10/24 23:53
0.9% Sodium Chloride 500 ml [Nss] 500 ml IV BOLUS
Potassium Chloride [KCl] 20 meq PO NOW STA
01/10/24 23:55
Add On- LAB Urgent
Tests Added?: serum osmolality, urine sodium, urine osmolality
Abnormal Lab Results
01/10/24 01/10/24 01/10/24
20:41 22:15 23:14
WBC 12.2 H 10^3/uL
(4.8-10.8)
RBC 3.85 L 10^6/uL
(4.20-5.40)
Hgb 11.2 L g/dL
(12.0-16.0)
Hct 32.3 L %
(37.0-47.0)
RDW 16.3 H %
(11.5-14.5)
Abs Immat Gran (auto) 0.1 H 10^3/uL
(0-0.05)
Absolute Neuts (auto) 9.6 H 10^3/uL
(1.4-6.5)
Absolute Lymphs (auto) 1.1 L 10^3/uL
(1.2-3.4)
Absolute Monos (auto) 1.4 H 10^3/uL
(0.1-0.6)
Immature Gran % 0.6 H %
(0-0.5)
Neutrophils % 78.5 H %
(42.2-75.2)
Lymphocytes % 8.7 L %
(20.5-51.1)
Monocytes % 11.7 H %
(1.7-9.3)
Sodium 128 L mmol/L
(135-145)
Potassium 3.3 L mmol/L
(3.5-5.1)
Chloride 89 L mmol/L
(98-107)
Carbon Dioxide 34 H mmol/L
(22-30)
BUN 22 H mg/dl
(7-17)
AST 43 H U/L
(14-36)
Alkaline Phosphatase 317 H U/L
(38-126)
Total Protein 5.5 L g/dl
(6.3-8.2)
Albumin 3.0 L g/dl
(3.5-5.0)
Urine Ketones Trace A
(Negative)
Urine Bilirubin 1+ A
(Negative)
Leukocyte Esterase Rfl Trace A
(Negative)
Urine Bacteria (Reflex) Many A
(Negative)
01/10/24 20:41
01/10/24 23:14
Vital Signs
Initial and Last Documented VS:
Initial Vital Signs
Temp Pulse Resp BP Pulse Ox
98.3 F 100 16 94/57 96
01/10/24 18:30 01/10/24 18:30 01/10/24 18:30 01/10/24 18:30 01/10/24 18:30
Last Documented Vital Signs
Temp Pulse Resp BP Pulse Ox
98.3 F 99 18 122/79 95
01/10/24 18:30 01/10/24 22:45 01/10/24 22:45 01/10/24 22:13 01/10/24 22:45
MDM/Problems Addressed
MDM/Problems Addressed:
Patient appears profoundly functionally deconditioned likely due to sedentary lifestyle coupled with metastatic lung cancer. She is noted to be mildly hyponatremic and hypokalemic which is likely hypovolemic in nature, she does take diuretics on
occasion which may be contributing as well. Patient is too weak to be discharged home, will admit for hyponatremia and hypokalemia, may require PT and OT as well as mcc placement.
*Critical Care Note
Total Time (30-74mins, 75-104mins- exclusive of procedures): Not Applicable
ED Attending Note
-
Portions of this chart may have been created with voice recognition software.� Occasional wrong word or��sound alike� substitutions may have occurred due to the inherent limitations of voice recognition software.
Discharge Plan
Departure
Patient Disposition: Admit
Date of Disposition: 01/10/24
Time of Disposition: 23:57
Presentation/result/management discussed w/ accepting MD/DO: Hospitalist
Discharge Problem:
Acute hyponatremia, Acute hypokalemia, Ambulatory dysfunction, Sacral decubitus ulcer, stage II
Prescriptions:
No Action
prochlorperazine maleate 10 mg Tablet
10 mg PO QID PRN (Reason: nausea/vomiting)
Hold Instructions: Resume on 08/25/23. Discuss with your primary care provider before deciding to resume this medication.
lidocaine-prilocaine 2.5-2.5 % Cream
1 applic TOPICAL DAILYPRN PRN (Reason: mild pain)
acetaminophen 650 mg Tablet Extended Release
650 mg PO DAILY
gabapentin 100 mg Capsule
300 mg PO BID
oxybutynin chloride 5 mg Tablet
5 mg PO DAILY
Hold Instructions: Resume on 08/18/23. Discuss this with your primary care physician before deciding whether or not to resume this medication
escitalopram oxalate 10 mg Tablet
10 mg PO DAILY
bupropion HCl 300 mg Tablet Extended Release 24 Hr
300 mg PO DAILY
Magic Mouthwash
5 ml PO Q6HPRN PRN (Reason: mouth sores)
magnesium oxide 500 mg Tablet
500 mg PO DAILY Qty: 30 0RF
furosemide 40 mg tablet
40 mg PO DAILY
levothyroxine 137 mcg Tablet
137 mcg PO DAILY@0730 Qty: 30 0RF
metoprolol succinate 25 mg Tablet Extended Release 24 Hr
75 mg PO BID Qty: 60 0RF
Xarelto 20 mg Tablet
20 mg PO QPM Qty: 30 0RF
diltiazem HCl 180 mg Capsule,Extended Release 24hr
180 mg PO BID Qty: 60 0RF
Butran
10 mg transdermal WEEKLY Qty: 0 0RF
polyethylene glycol 3350 [HealthyLax] 17 gram powder in packet
17 g PO DAILY Qty: 30 0RF
Referrals:
NONE,* [Active] -
Interventions
Interventions:
*Risk Screen - Suicide Last Done: 01/10/24 19:57
*General Assessment Last Done: 01/10/24 19:57
*Neglect/Abuse Screening Last Done: 01/10/24 19:57
ED- Fall Risk Assessment Last Done: 01/10/24 19:59
*ED COVID-19 Vaccine History Last Done: 01/10/24 18:31
ED-Skin Assessment Last Done: 01/10/24 22:52
Discharge Date and Time
Print Language: KOREAN
[2024-01-10 20:49] LABS: % Basophils 0.3 % (0-2); % Eosinophils 0.2 % (0-6); % Immature Granulocytes 0.6 % (0-0.5); % Lymphocytes 8.7 % (20.5-51.1); % Monocytes 11.7 % (1.7-9.3); % Neutrophils 78.5 % (42.2-75.2); Absolute Immature Granulocytes 0.1 10^3/uL (0-0.05); Absolute Lymphocytes 1.1 10^3/uL (1.2-3.4); Absolute Monocytes 1.4 10^3/uL (0.1-0.6); Absolute Neutrophils 9.6 10^3/uL (1.4-6.5); Hematocrit 32.3 % (37.0-47.0); Hemoglobin 11.2 g/dL (12.0-16.0); Mean Corp Hgb Conc. 34.7 g/dL (33.0-37.0); Mean Corpuscular Hgb 29.1 pg (27.0-31.0); Mean Corpuscular Volume 83.9 fL (81.0-99.0); Mean Platelet Volume 9.1 fL (7.4-10.4); Nucleated Red Blood Cells % 0 %; Platelet Count 301 10^3/uL (130-400); Red Blood Cell Count 3.85 10^6/uL (4.20-5.40); Red Cell Dist. Width 16.3 % (11.5-14.5); White Blood Cell Count 12.2 10^3/uL (4.8-10.8)
[2024-01-10 21:00] VITALS: BP 117/64
[2024-01-10 22:13] VITALS: BP 122/79
[2024-01-10 22:25] LABS: Urine Albumin Trace (Neg - Trace); Urine Bilirubin 1+ (Negative); Urine Character Slightly Cloudy (Clear); Urine Color Yellow; Urine Glucose Negative (Negative); Urine Ketone Trace (Negative); Urine Leukocyte Trace (Negative); Urine Nitrite Negative (Negative); Urine Occult Blood Negative (Negative); Urine Urobilinogen Negative (Neg - 1+)
[2024-01-10 22:39] LABS: Urine Hyaline Cast >15 /LPF (0-2); Urine Squamous Cell 0-2 /LPF (Few)
[2024-01-10 22:40] LABS: Urine Bacteria Many (Negative); Urine Red Blood Cell 0-2 /HPF (0-2)
[2024-01-10 23:00] VITALS: BP 111/63
[2024-01-10 23:46] LABS: ALT (SGPT) 18 U/L (0-35); AST (SGOT) 43 U/L (14-36); Alkaline Phosphatase 317 U/L (38-126); Blood Urea Nitrogen 22 mg/dl (7-17); Calcium 8.7 mg/dl (8.4-10.2); Carbon Dioxide 34 mmol/L (22-30); Chloride 89 mmol/L (98-107); Estimated Creatinine Clearance 50 ml/min; Glucose 96 mg/dl (70-99); Potassium 3.3 mmol/L (3.5-5.1); Sodium 128 mmol/L (135-145); Total Bilirubin 0.9 mg/dl (0.2-1.3); Total Protein 5.5 g/dl (6.3-8.2); eGFR > 60.00
[2024-01-10] MEDS: KCL 20 MEQ PO (23:58)
[2024-01-11] VITALS (9 sets, daily range): BP systolic 107–130; BP diastolic 63–83; PULSE 62–88; O2SAT 95; BMI 22.2
[2024-01-11] MEDS: NSS 500 IV
--- NOTE | 2024-01-11 00:25 | HPS.HSE ---
Family Physician
-
Family Physician: YAMILETH HOLDEN
Chief Complaint
-
weakness , fall scarldecuve
History of Present Illness
HPI
78M from home HX HX metastatic NSCL Ca , HX HFpEF, Prx AF on Xarelto, recent exploratory laparotomy, partial cecectomy and appendectomy, primary repair of ventral incisional hernia by 12/15/2023 evalaution for weakness and gait
instability.
Progressively weakness, gait instability
Essentially non ambulatory thus developing sacral decubitus ulcer
Fall at home
Denied head injury
on Xarelto
Medical History
Past Medical History
Past Medical History: Reports Other
Additional Past Medical History:
Lung Cancer s/p right lower lobe lobectomy
Right pleural effusion
HFpEF
Anemia
HX lateral right fourth and fifth rib fractures
Paroxysmal Atrial fibrillation on Eliquis
Hypothyroidism
Essential hypertension
HX breast cancer - treated with lumpectomy/radiation
Overactive bladder
Anxiety/depressio
Past Surgical History: Reports Other
Additional Past Surgical History:
Recent exploratory laparotomy, partial cecectomy and appendectomy, primary repair of ventral incisional hernia by 12/15/2023 for # Incarcerated ventral hernia
Bladder Sling Surgery
Right Lumpectomy
Right Middle / Lower Lobectomies (February 2023)
Cholecystectomy
Tubal Ligation
Bilateral TKA
Social History
Tobacco: Former Smoker
Alcohol: None
Drug: None
Living: With Family
Family History
Family History: Not pertinent
Allergies / Home Medications
Allergies reflects when Allergies were last updated in [facility].
Home Medications with original date entered in [facility]
Allergy/Medication List:
Allergies
Allergy/AdvReac Type Severity Reaction Status Date / Time
morphine Allergy Unknown Verified 01/10/24 18:32
Penicillins Allergy Rash Verified 01/10/24 18:32
Home Medications
Magic Mouthwash 5 ml PO Q6HPRN PRN mouth sores 08/01/23
acetaminophen 650 mg tablet,extended release 650 mg PO DAILY Pain 08/01/23
bupropion HCl 300 mg 24 hr tablet, extended release 300 mg PO DAILY Depression 08/01/23
escitalopram oxalate 10 mg tablet 10 mg PO DAILY Depression 08/01/23
gabapentin 100 mg capsule 300 mg PO BID Neurological Condition 08/01/23
lidocaine-prilocaine 2.5 %-2.5 % topical cream 1 applic topical DAILYPRN PRN mild pain 08/01/23
oxybutynin chloride 5 mg tablet 5 mg PO DAILY Urinary Issue 08/01/23
prochlorperazine maleate 10 mg tablet 10 mg PO QID PRN nausea/vomiting 08/01/23
magnesium oxide 500 mg PO DAILY #30 tabs 08/04/23
furosemide 40 mg tablet 40 mg PO DAILY Fluid Retention/Swelling 12/16/23
diltiazem HCl 180 mg capsule,extended release 24 hr 180 mg PO BID Arrhythmia #60 caps 12/22/23
levothyroxine 137 mcg tablet 137 mcg PO DAILY@0730 Thyroid #30 tabs 12/22/23
metoprolol succinate 25 mg tablet,extended release 24 hr 75 mg (3 x 25 mg) PO BID Arrhythmia #60 tabs 12/22/23
rivaroxaban 20 mg tablet (Xarelto) 20 mg PO QPM Blood clot prevention/tx #30 tabs 12/22/23
Butran 10 mg transdermal WEEKLY Pain ##0 12/23/23
polyethylene glycol 3350 17 gram oral powder packet (HealthyLax) 17 g PO DAILY Constipation #30 ea 12/23/23
Review of Systems
-
Constitutional: Reports See HPI
EENT: Reports No Symptoms
Respiratory: Reports No Symptoms
Cardiac: Reports No Symptoms
Abdomen/GI: Reports No Symptoms
: Reports No Symptoms
Musculoskeletal: Reports No Symptoms
Skin: Reports No Symptoms
Neurological: Reports See HPI, Dizzy and Weakness
Endocrine: Reports No Symptoms
Hematologic/Lymphatic: Reports No Symptoms
Psych: Reports No Symptoms
Physical Exam
Vital Signs
Vital Signs
Temp Pulse Resp BP Pulse Ox
98.3 F 99 18 122/79 95
01/10/24 18:30 01/10/24 22:45 01/10/24 22:45 01/10/24 22:13 01/10/24 22:45
Physical Exam
General: Well Developed, Well Nourished and No Apparent Distress
HEENT: Anicteric; No Moist mucous membranes
Respiratory: Clear and Non Labored Respirations; No Wheezes, Rales or Rhonchi
Cardiac: S1/S2 and Regular Rhythm
GI: Soft, Non Tender, Non Distended and Normal Bowel Sounds
Genito-urinary: Deferred by me
Skin: Other (Stage II sacral decubitus ulcer, no erythema or discharge)
Neuro: Awake, Alert and Nonfocal/grossly intact
Psych: Calm
Laboratory Results
-
01/10/24 20:41
01/10/24 23:14
Laboratory Results
Total Bilirubin 0.9 mg/dl (0.2-1.3) 01/10/24 23:14
AST 43 U/L (14-36) H 01/10/24 23:14
ALT 18 U/L (0-35) 01/10/24 23:14
Alkaline Phosphatase 317 U/L (38-126) H 01/10/24 23:14
Data Reviewed
-
Diagnostic Radiology: Report Reviewed by me
CT Scan: Report Reviewed by me
Lab Data: Labs Reviewed by me
Old Records: Reviewed
Impression/Plan
-
Reviewed VS: BP 94/70 -120/780s/p NS 1 L bolus HR 99
Data
WCC 12.2
Hgb 11.2
Na 128 - b/l low 130
K 3.3
Cl 89
BUN 22
Cr 0.8
eGFR > 60
AKP 317
Al 3.0
Pending Ur Na, Ur Osm and Sr Osm
NEG UA
CXR
1. 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
2. Previous right lower and middle lobectomies with associated right lung volume loss and mild left to right mediastinal shift.
3. Mild cardiomegaly.
4. Left IJ chemotherapy Mediport in place.
5. 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
HCT
1. No CT evidence for acute intracranial hemorrhage, calvarial fracture, or scalp soft tissue hematoma.
2. Moderate-sized subacute or chronic transcortical infarct in the posteromedial right occipital lobe containing cytotoxic edema or encephalomalacia.
3. 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
4. Moderate diffuse cerebral volume loss.
5. MODERATE ACUTE LEFT SPHENOID SINUSITIS.
Last hospitalist admission: 12/14-12/23/23
DC Dx;
1. Incarcerated ventral hernia with exploratory laparotomy with appendectomy.
2. Partial cecectomy and primary hernia repair.
3. Hyponatremia.
ASSESSMENT & PLAN
Pending Rx reconciliation
Failure to thrive at home
General debility with weakness
Ambulatory dysfunction with fall : NEH HCT for ICH
Stage II sacral decun POA
Acute on chr hyponatremia ,Hypokalemia, Suspect dehydration
Hypotension
HX Non small cell lung CA with metastatic dz
On last admission : PT OT recommended home with home health
- await Ur Na, Ur Osm and Sr Osm
- held lasix and all anti HTN meds
- Gentle IV NS 1 L
- Correct K s/p KCL 20 at ER
- Trend N and K in AM
- Wd care consult
- PT/OT this time likely will need SNF
Recent exploratory laparotomy, partial cecectomy and appendectomy, primary repair of ventral incisional hernia by 12/15/2023 for # Incarcerated ventral hernia
Chronic heart failure with preserved ejection fraction
Echo 08/03/2020 LV size function. EF 66%. Stage II diastolic dysfunction. Thickened mitral valves. Mitral valve-moderate MR. Mild TR. Pulmonary artery pressure 48 mmHg.
- continue with statin
- held metoprolol due to hypertension
HX Paroxysmal atrial fibrillation/flutter
- held Toprol Xl due to soft BP
- on Xarelto
- Lower Cardizem dose
HX Non-small cell lung cancer s/p R lower lobectomy and chemotherapy
followed at [facility].
Last immunotherapy was a week prior to admission december 01
Multiple hepatic metastasis, bilateral adrenal nodules concerning for adrenal metastasis.
DVT Px: Xarelto
Code: Full code
IP TLM
[2024-01-11 00:28] LABS: Osmolality Serum 276 mOsm/kg (275-300)
[2024-01-11 00:32] LABS: Osmolality Urine 405 mOsm/kg (300-900)
[2024-01-11 00:37] LABS: Urine Sodium 37 mmol/L (30-90)
[2024-01-11 06:45] LABS: Hematocrit 32.2 % (37.0-47.0); Hemoglobin 10.9 g/dL (12.0-16.0); Mean Corp Hgb Conc. 33.9 g/dL (33.0-37.0); Mean Corpuscular Hgb 28.8 pg (27.0-31.0); Mean Corpuscular Volume 85.2 fL (81.0-99.0); Mean Platelet Volume 9.1 fL (7.4-10.4); Platelet Count 262 10^3/uL (130-400); Red Blood Cell Count 3.78 10^6/uL (4.20-5.40); Red Cell Dist. Width 16.4 % (11.5-14.5); White Blood Cell Count 9.5 10^3/uL (4.8-10.8)
[2024-01-11 07:12] LABS: Blood Urea Nitrogen 19 mg/dl (7-17); Calcium 8.7 mg/dl (8.4-10.2); Carbon Dioxide 33 mmol/L (22-30); Chloride 89 mmol/L (98-107); Estimated Creatinine Clearance 57 ml/min; Glucose 86 mg/dl (70-99); Potassium 3.4 mmol/L (3.5-5.1); Sodium 131 mmol/L (135-145); eGFR > 60.00
[2024-01-11] MEDS: CARDIZEM CD 120 MG PO ×2 (08:06→20:17)
[2024-01-11] MEDS: MAGNESIUM OXIDE 500 MG PO (08:06)
[2024-01-11] MEDS: WELLBUTRIN XL (24 hour extended release) 300 MG PO (08:06)
[2024-01-11] MEDS: NEURONTIN 300 MG PO ×2 (08:06→20:17)
[2024-01-11] MEDS: SYNTHROID 137 MCG PO (08:07)
[2024-01-11] MEDS: LEXAPRO 10 MG PO (08:07)
--- NOTE | 2024-01-11 08:09 | W.PN.HOSP.TC ---
Addendum entered and electronically signed by Silvio Rivers MD 01/11/24 14:41:
Left Heel Stage 1 Pressure Injury, POA
Right Heel DTI, POA
Sacrum Stage 2 Pressure Injury, POA
Original Note:
Today's Communication/Plan
-
d/c
Assessment / Plan
Assessment / Plan
Gen: NAD, Awake and alert
Eyes: EOMI, PERRLA, no scleral icterus.
Neck: supple.
CV: irreg/irreg, +S1/S2, no m/r/g.
Resp: CTAB, no rales, wheezes, or rhonchi.
Abd: +BS, soft, NT, ND
Skin: No rashes.
Neuro: CN 2-12 intact, non-focal.
Psych: Normal mood and affect.
CXR:
1. 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
2. Previous right lower and middle lobectomies with associated right lung volume loss and mild left to right mediastinal shift.
3. Mild cardiomegaly.
4. Left IJ chemotherapy Mediport in place.
5. 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
CT Brain:
1. No CT evidence for acute intracranial hemorrhage, calvarial fracture, or scalp soft tissue hematoma.
2. Moderate-sized subacute or chronic transcortical infarct in the posteromedial right occipital lobe containing cytotoxic edema or encephalomalacia.
3. 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
4. Moderate diffuse cerebral volume loss.
5. MODERATE ACUTE LEFT SPHENOID SINUSITIS.
Failure to thrive, generalized weakness, ambulatory dysfunction with fall: at home
-also stage II sacral decubitus ulcer, POA, wound card c/s
-PT/OT
Acute on chronic hyponatremia:
-also hypokalemia and hypotension
-40meq PO K
-Na improved with IVFs
-change FR to 1200cc (clearly SIADH due to malignancy)
Other problems:
Recent exploratory laparotomy, partial cecectomy and appendectomy, primary repair of ventral incisional hernia by Dr. Diaz on 12/15/2023 for incarcerated ventral hernia
Chronic HFpEF: Holding BB for hypotension
Paroxysmal atrial fibrillation/flutter: Cont Cardizem at lower dose. Cont Xarelto.
h/o Non-small cell lung cancer s/p R lower lobectomy and chemotherapy: Last immunotherapy was late October 2023
Multiple hepatic metastasis, bilateral adrenal nodules concerning for adrenal metastasis.
FULL/Xarelto
Medically cleared for discharge, case management aware.
Anticipated Discharge: Today
Subjective/Interval History
-
Date of Service: January 11, 2024
Objective Data
-
Labs:
Laboratory Results
01/10/24 01/10/24 01/10/24
20:41 22:15 23:14
WBC 12.2 H
Hgb 11.2 L
Hct 32.3 L
Plt Count 301
Sodium Cancelled Cancelled 128 L
Potassium Cancelled Cancelled 3.3 L
Chloride Cancelled Cancelled 89 L
Carbon Dioxide Cancelled Cancelled 34 H
BUN Cancelled Cancelled 22 H
Creatinine Cancelled Cancelled 0.8
Glucose Cancelled Cancelled 96
Calcium Cancelled Cancelled 8.7
Total Bilirubin Cancelled Cancelled 0.9
AST Cancelled Cancelled 43 H
ALT Cancelled Cancelled 18
Alkaline Phosphatase Cancelled Cancelled 317 H
01/11/24
06:22
WBC 9.5
Hgb 10.9 L
Hct 32.2 L
Plt Count 262
Sodium 131 L
Potassium 3.4 L
Chloride 89 L
Carbon Dioxide 33 H
BUN 19 H
Creatinine 0.7
Glucose 86
Calcium 8.7
Total Bilirubin
AST
ALT
Alkaline Phosphatase
Vital Signs:
Vital Signs
Temp Pulse Resp BP Pulse Ox
97.8 F 96 17 123/70 98
01/11/24 07:00 01/11/24 07:00 01/11/24 07:00 01/11/24 07:00 01/11/24 07:00
I&O
01/10/24 01/11/24 01/12/24
06:59 06:59 06:59
Intake Total 120 / 120
Balance 120 / 120
[2024-01-11] MEDS: KCL 40 MEQ PO (08:42)
--- NOTE | 2024-01-11 09:18 | VNURNOTE ---
Patient is current with [facility] since 12/23 w/ SN/PT, will monitor progress and plan at discharge.
[2024-01-11 10:24] LABS: Magnesium 1.6 mg/dl (1.6-2.3)
--- NOTE | 2024-01-11 10:45 | WOUNDNOTE ---
WO RN note: Patient admitted with failure to thrive, sacral ulcer. Plan is SNF.
See H&P for complete history.
PMH: metastatic lung cancer, CHF, a fib (Xarelto), exploratory lap, ventral hernia repair, R pleural effusion, breast ca, R lumpectomy, bilateral TKA, former smoker.
Wound Location and type/assessment: Patient admitted with: Unstageable sacral pressure injury.
Appetite: on cholesterol lowering diet.
Pressure redistribution devices in place: [employer] Air bed. Air chair cushion. Patient stands with walker and assist.
Plan: Sacral dressing changed by MARYLOU Higginbotham.
Will confirm orders with hospitalist and update nurse.
Updated care plan and will follow as needed.
Note to case management of equipment requested for discharge: air mattress at SNF.
Recommend follow up at wound care center upon discharge.
--- NOTE | 2024-01-11 12:20 | WOUNDNOTE ---
WOC RN note: Notified Ella Soriano and Carine Mcdermott Specialist [facility] re: hospital bed with air mattress recommended for patient. She has at least a stage 3 sacral/coccyx pressure injury.
--- NOTE | 2024-01-11 15:25 | CM ---
Addendum entered by BRENNAN Lainez 01/11/24 16:05:
Referrals sent to the following: [facility], [facility], [facility], Herminio Knott, Reese Casarez, Yasmin Hua, [facility], [facility], [facility], and [place] [facility] [place]. Will await determinations.
Original Note:
Reviewed chart, placed a call to patient's daughter, Rylee, who answered and stated that she could talk. She stated that patient lives in an apartment in the rear of their home, all one floor no step to enter. Patient is right now, dependent with
her ADLs, personal care, dressing, bathing and toileting. She is incontinent of bowel and bladder. She has had a rapid steady decline in her level of functioning over the course of the last few weeks per her daughter and developed bed sores as she
is having difficulty repositioning herself in bed.
Patient's daughter does all the triple drum operator, cooking, cleaning and laundry. She prepares meals for patient. Patient's daughter does all the driving, and takes patient to all of her appointments.
Patient's daughter stated that patient has had multiple falls in the past few weeks. She hasn't been eating very well.
She is current with BO and has aides who come in to assist her 3 days a weeks for 3 hours per visit.
Patient has a prescription plan and she uses [facility]. Her PCP is not listed.
PT/OT stating that patient needs rehab. Patient's daughter stated that stated the same. Explanation was provided to patient's daughter that she would need a three night qualifying stay in acute care to get coverage for a stay.
Checked to determine if patient is on waiver through [employer] however Radha confirmed she isn't.
Checked patient's recent visits. She did have a three night stay in the past month, therefore will use that for coverage.
Patient's daughter was agreeable to all [place] and facilities local to her being sent referrals. Updated attending. He is agreeable to patient transfer to a SNF. Will send referrals.
Plan: Case management will continue to follow and assist with discharge planning/hopeful transfer to a SNF by tomorrow morning as patient is medically cleared.
[2024-01-11] MEDS: XARELTO 20 MG PO (16:20)
--- NOTE | 2024-01-11 16:26 | W.PN.UPDATE ---
Update Note
Progress Note Update
billing
[2024-01-11] MEDS: TUMS 2 TABLET PO (18:35)
[2024-01-12] VITALS (7 sets, daily range): BP systolic 119–149; BP diastolic 67–96; BMI 22.0
--- NOTE | 2024-01-12 02:46 | W.PN.UPDATE ---
Update Note
Progress Note Update
Patient is tachycardia with hr in 130s, denied chest pain, palpitation, or SOB. BP 127/79, afebrile.
EKG done with A-flutter/ rate 130.
-lab ordered of cbc, BMP, mag, troponin, BNP
-One time of order of Cardizem 5mg IV given and not effective. HR continue in 130s, will start the patient on Cardizem drip 5mg/hr, and cardiology consult was placed.
[2024-01-12] MEDS: CARDIZEM 5 MG IV (02:53)
--- NOTE | 2024-01-12 03:04 | PTCARENOTE ---
Addendum entered by Shira Walker RN 01/12/24 05:10:
pt HR still sustaining in the 120s-130s, BP 149/96. SANTO Goldman ordered cardizem gtt at 5 mg/hr. cardiology consulted, troponin and proBNP ordered for 0600.
Original Note:
pt HR sustaining in the 120s or greater and pt rhythm aflutter. pt asymptomatic, no c/o SOB, chest pain or palpitations. BP 127/79. SANTO Goldman notified and stat CBC, BMP, and magnesium ordered, stat EKG done also showing atrial flutter with
variable AV block. stat 1x dose of IV cardizem 5 mg ordered and given. call franklin within reach. pt resting comfortably.
[2024-01-12 03:24] LABS: % Basophils 0.4 % (0-2); % Eosinophils 0.3 % (0-6); % Immature Granulocytes 0.3 % (0-0.5); % Lymphocytes 8.1 % (20.5-51.1); % Monocytes 11.7 % (1.7-9.3); % Neutrophils 79.2 % (42.2-75.2); Absolute Lymphocytes 0.8 10^3/uL (1.2-3.4); Absolute Monocytes 1.2 10^3/uL (0.1-0.6); Absolute Neutrophils 7.9 10^3/uL (1.4-6.5); Hematocrit 33.6 % (37.0-47.0); Mean Corp Hgb Conc. 32.7 g/dL (33.0-37.0); Mean Corpuscular Hgb 28.6 pg (27.0-31.0); Mean Corpuscular Volume 87.5 fL (81.0-99.0); Nucleated Red Blood Cells % 0 %; Platelet Count 284 10^3/uL (130-400); Red Blood Cell Count 3.84 10^6/uL (4.20-5.40); Red Cell Dist. Width 16.3 % (11.5-14.5)
[2024-01-12 03:59] LABS: Blood Urea Nitrogen 15 mg/dl (7-17); Calcium 8.8 mg/dl (8.4-10.2); Carbon Dioxide 31 mmol/L (22-30); Chloride 95 mmol/L (98-107); Estimated Creatinine Clearance 67 ml/min; Glucose 81 mg/dl (70-99); Magnesium 1.6 mg/dl (1.6-2.3); Potassium 4.2 mmol/L (3.5-5.1); Sodium 129 mmol/L (135-145); eGFR > 60.00
[2024-01-12] MEDS: CARDIZEM 125 IV (05:35)
[2024-01-12] MEDS: SYNTHROID 137 MCG PO (06:30)
[2024-01-12 07:21] LABS: NT-proBNP 1490 pg/ml; Troponin I < 0.012 ng/ml
[2024-01-12] MEDS: WELLBUTRIN XL (24 hour extended release) 300 MG PO (08:00)
[2024-01-12] MEDS: NEURONTIN 300 MG PO ×2 (08:00→20:20)
[2024-01-12] MEDS: MAGNESIUM OXIDE 500 MG PO (08:00)
[2024-01-12] MEDS: LEXAPRO 10 MG PO (08:00)
[2024-01-12] MEDS: CARDIZEM CD 120 MG PO ×2 (08:00→20:19)
[2024-01-12] MEDS: SANTYL OINTMENT 1 APPLIC TOPICAL (08:01)
--- NOTE | 2024-01-12 09:59 | W.PN.CD ---
Today's Communication / Plan
-
Consult dictated:
Add back rate control meds
Impression / Plan
-
78 yo female with PMH of met lung cancer, paroxysmal A fib (and typical flutter) on xarelto, chronic HFpEF, HTN, s/p surgery 12/15/2023 incarcerated ventral hernia. We are consulted for A fib with RVR.
A fib with RVR, also typical atrial flutter
- No ekg on admit
- Tele all course AFib (perhaps some flutter)
- Was not on the Toprol and dilt
- CHADS2-VASC = 5. Xarelto for OAC.
Failure to thrive
Sacral decub
HTN
Chronic HFpEF, seems compensated, has been challenging
- Can develop CHASIDY with meds/overdiuresis
Mild/moderate MR
Met lung cancer
Recent abdominal surgery (12/15/2023)
Subjective:
She denies CP, palps, or dyspnea.
Data:
Echo 07/2023: EF 65-70%, Stage I DD, mild/moderate MR, mild TR, PASP 48
Cardiac meds as of 12/22/2023: Furosemide 40 po qd prn, Toprol XL 75 po BID, diltiazem 180 po BID, Xarelto 20 po qd pm
Cardiac followup: Dr. Carrillo on March 03, 2024 at 3:00 PM
Physical Exam
Vital Signs/Labs
Vital Signs
Temp Pulse Resp BP Pulse Ox
97.8 F 122 17 146/88 96
01/12/24 07:00 01/12/24 08:00 01/12/24 07:00 01/12/24 08:00 01/12/24 07:00
01/11/24 01/12/24 01/13/24
06:59 06:59 06:59
Actual Weight 58.649 kg 58.173 kg
01/12/24 02:48
01/12/24 02:48
Magnesium 1.6 mg/dl (1.6-2.3) 01/12/24 02:48
01/12/24
06:46
Gvr-T-Ovixxryrqwn Pept 1490
LAB Results
01/12/24 01/12/24
02:56 06:46
Troponin I Cancelled < 0.012
Data Reviewed
-
Date of Service: January 12, 2024
--- NOTE | 2024-01-12 10:03 | CM ---
Addendum entered by BRENNAN Lainez 01/12/24 11:43:
Updated patient's daughter (did not get into any clinical information) that patient will be here another night per attending. She was appreciative of update.
Addendum entered by MARYANN LainezW 01/12/24 11:34:
Received [place] Text from attending who stated that patient is not medically stable for transfer today but most likely tomorrow.
Placed a call to Nallely in admissions at [facility] who stated to call her tomorrow morning to update.
Addendum entered by Roseann Mcdermott [facility] 01/12/24 10:19:
Received call back from Rylee, patient's daughter who was agreeable to transfer to [place].
Original Note:
Spoke with Nallely in admissions at [facility] ([facility]) who confirmed that she can take patient for SNF today. Patient had a 3 night qualifying stay under Medicare guidelines within the past 30 days.
Nallely stated that number for Report is [phone] and fax is [phone]. Sent new PASSR for to [facility] directly at [phone].
Attending updated by [facility] Text.
Placed a call to patient's daughter Rylee, to update. Had to leave a voice mail message. Advised Rylee that patient has been medically cleared and there is an accepting facility. Encouraged return call to confirm that she is agreeable.
Plan: Case management will continue to follow and assist with discharge planning. [facility] when patient cleared by attending/stable to go.
[2024-01-12] MEDS: LOPRESSOR 50 MG PO (11:00)
--- NOTE | 2024-01-12 11:24 | W.PN.HOSP.TC ---
Addendum entered and electronically signed by Silvio Rivers MD 01/12/24 13:36:
Stage 3 sacral/coccyx pressure injury, POA
Addendum entered and electronically signed by Silvio Rivers MD 01/12/24 13:26:
severe protein calorie malnutrition
Original Note:
Today's Communication/Plan
-
see bold
Assessment / Plan
Assessment / Plan
Gen: NAD, Awake and alert
Eyes: EOMI, PERRLA, no scleral icterus.
Neck: supple.
CV: remains irreg/irreg, +S1/S2, no m/r/g.
Resp: CTAB anteriorly, no rales, wheezes, or rhonchi.
Abd: +BS, soft, NT, ND
Skin: No rashes. No LE edema
Neuro: CN 2-12 intact, non-focal.
Psych: Normal mood and affect.
CXR:
1. 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
2. Previous right lower and middle lobectomies with associated right lung volume loss and mild left to right mediastinal shift.
3. Mild cardiomegaly.
4. Left IJ chemotherapy Mediport in place.
5. 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
CT Brain:
1. No CT evidence for acute intracranial hemorrhage, calvarial fracture, or scalp soft tissue hematoma.
2. Moderate-sized subacute or chronic transcortical infarct in the posteromedial right occipital lobe containing cytotoxic edema or encephalomalacia.
3. 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
4. Moderate diffuse cerebral volume loss.
5. MODERATE ACUTE LEFT SPHENOID SINUSITIS.
Failure to thrive, generalized weakness, ambulatory dysfunction with fall: at home
-also stage II sacral decubitus ulcer, POA, wound card c/s
-PT/OT
Acute on chronic hyponatremia:
-also hypokalemia (resolved) and hypotension (resolved)
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
Paroxysmal atrial fibrillation with RVR and typical atrial flutter:
-with RVR overnight 01/11/24-01/12/24 cardizem gtt was started. Now off cardizem gtt and back on Cardizem CD. Toprol XL also restarted.
-Cont Xarelto.
Other problems:
Recent exploratory laparotomy, partial cecectomy and appendectomy, primary repair of ventral incisional hernia by Dr. Diaz on 12/15/2023 for incarcerated ventral hernia
Chronic HFpEF: BB restarted (had been on hold for hypotension)
h/o Non-small cell lung cancer s/p R lower lobectomy and chemotherapy: Last immunotherapy was late October 2023
Multiple hepatic metastasis, bilateral adrenal nodules concerning for adrenal metastasis.
FULL/Xarelto
Anticipated Discharge: Within 24 hours
Subjective/Interval History
-
Date of Service: January 12, 2024
Denies CP/SOB.
Objective Data
-
Labs:
Laboratory Results
01/12/24
02:48
WBC 10.0
Hgb 11.0 L
Hct 33.6 L
Plt Count 284
Sodium 129 L
Potassium 4.2
Chloride 95 L
Carbon Dioxide 31 H
BUN 15
Creatinine 0.6
Glucose 81
Calcium 8.8
Vital Signs:
Vital Signs
Temp Pulse Resp BP Pulse Ox
98.3 F 92 17 138/69 93
01/12/24 11:18 01/12/24 11:18 01/12/24 11:18 01/12/24 11:18 01/12/24 11:18
I&O
01/11/24 01/12/24 01/13/24
06:59 06:59 06:59
Intake Total 120 / 120 720 / 720
Balance 120 / 120 720 / 720
--- NOTE | 2024-01-12 13:05 | PN.CDI ---
CDI
- -
CDI:
Physician Documentation Request
Admit Date: 01/11/24 00:50
Dear Doctor Silvestre,
Please review the following and provide your response in the progress notes.
Clinical Indicators:
Senior Php Developer, 01/10
#Chart reviewed due to consult pt weight loss.
#CBW: 129 lbs 4.8oz BMI 22.2 underweight range > 65 yo (01/10).
#Per previous hospital visit pts weight listed as 163 lbs 08/04
#...reflective of 34 lb (21%) in 5 months significant.
#...observe moderate protrusion of clavical, moderate temporal wasting,
#...apparent ribs and orbtial area sunken in.
#...weight loss of > 10% in 6 months, < 75% estimated needs > 1 month and
#...observed muscle and fat wasting
#...pt meets AND/ASPEN criteria for severe protein calorie malnutrition.
Based on the above and your clinical assessment, please provide diagnosis/condition that best reflects the patient's nutritional status:
Severe Protein Calorie Malnutrition
Other (please specify)
[place] Criteria (ACP Hospitalist 2017)
2 or more criteria must be present for either
non severe or severe malnutrition
Note that the criteria differs related to the
presence of an acute or chronic illness
Acute Illness Chronic Illness
Energy Intake Non Severe: <75% for >7 days Non Severe: <75% for >1 month
Severe: <50% for >5 days Severe: <75% for >1 month
Weight Loss Non Severe: 1-2% over 1 week Non Severe: 5% over 1 month
5% over 1 month 7.5% over 3 months
7.5% over 3 months 10% over 6 months
1 year N/A 20% over 1 year
Severe: >2% over 1 week Severe: >5% over 1 month
>5% over 1 month >7.5% over 3 months
>7.5% over 3 months >10% over 6 months
1 year N/A >20% over 1 year
Body Fat Non Severe: Mild Decrease Non Severe: Mild Loss
Severe: Moderate Decrease Severe: Severe Loss
Muscle Mass Non Severe: Mild Decrease Non Severe: Mild Loss
Severe: Moderate Decrease Severe: Severe Loss
Use of terms such as suspected, likely, concern for, or probable (associated with a specific diagnosis that is being evaluated, monitored, or treated as if it exists) are acceptable and can be coded in the inpatient setting, when documented at the
time of discharge.
Thank you,
Kat Hamilton RN BSN CCDS
CDI Specialist
please contact via tiger text
Please use your independent medical judgment in providing your response.
--- NOTE | 2024-01-12 13:15 | PN.CDI ---
CDI
- -
CDI:
Physician Documentation Request
Admit Date: 01/11/24 00:50
Dear Doctor Silvestre,
Please review the following and provide your response in the progress notes.
Clinical Indicators:
PN, 01/10
#Sacrum Stage 2 Pressure Injury, POA
01/11/24 12:20 (created 01/11/24 13:19) - Wound Note
#She has at least a stage 3 sacral/coccyx pressure injury.
Please clarify the current stage of the patient's documented sacral/coccyx pressure injury:
Stage 3 sacral/coccyx pressure injury, POA
Stage 2 sacral/coccyx pressure injury, POA
Other (please specify)
Physician documentation of the type and location of wounds is required for compliant documentation. Based on the above clinical findings and your assessment, please provide the following in your progress note:
1. Location of the ulcer/wound, including laterality.
2. Type (etiology) of ulcer/wound:
- Diabetic ulcer
- Arterial (ischemic) ulcer
- Traumatic wound
- Venous stasis ulcer
- Pressure (decubitus) ulcer
3. If a pressure ulcer, please also include the stage* of the ulcer:
- Stage 1 - Skin intact, non-blanchable redness
- Stage 2 - Partial thickness loss of dermis, includes intact or open blister
- Stage 3 - Full thickness tissue not including bone, tendon or muscle
- Stage 4 - Full thickness tissue loss, including exposed bone, tendon or muscle
Use of terms such as suspected, likely, concern for, or probable (associated with a specific diagnosis that is being evaluated, monitored, or treated as if it exists) are acceptable and can be coded in the inpatient setting, when documented at the
time of discharge.
Thank you,
Kat Hamilton RN BSN CCDS
CDI Specialist
please contact via tiger text
Please use your independent medical judgment in providing your response.
*Source: National Pressure Ulcer Advisory Panel (NPUAP)
[2024-01-12] MEDS: XARELTO 20 MG PO (17:08)
[2024-01-12] MEDS: TOPROL XL 50 MG PO (20:20)
[2024-01-13 03:00] VITALS: BP 131/81
[2024-01-13] MEDS: LOPRESSOR 2.5 MG IV ×2 (03:00→04:20)
--- NOTE | 2024-01-13 04:56 | DOWNTIME ---
There was a [employer] Client Elementary Instructional Coach Downtime on 01/13/2024 from 0100 to 01/13/2024 at 0439. Downtime documentation of patient's care, including medication administrations, has been reconciled in the electronic record per guidelines. Refer to the
patient's paper chart under the miscellaneous tab to see printed paper medication records and downtime forms.
--- NOTE | 2024-01-13 05:03 | PTCARENOTE ---
Addendum entered by Shira Walker RN 01/13/24 06:36:
PO sceduled 0800 cardizem approved to give early by SANTO Goldman d/t pts HR still in 120s.
Original Note:
pts HR increasing up into the 110s-120s and sustaining. SANTO Goldman notified at 0243, telephone order to this RN for IV Lopressor 2.5 mg STAT. pts BP 131/81 and HR 121. pt asymptomatic. SANTO Goldman notified again at 0404 for HR still
sustaining in 120s despite previous IV Lopressor dose. another telephone order taken by this RN for IV Lopressor 2.5 mg STAT. pts BP 134/85 and HR 117. pt remains asymptomatic. plan of care ongoing. call franklin within reach.
[2024-01-13 05:51] VITALS: BMI 22.1
[2024-01-13] MEDS: CARDIZEM CD 120 MG PO (06:37)
--- NOTE | 2024-01-13 06:54 | W.PN.HOSP.TC ---
Today's Communication/Plan
-
see bold
Assessment / Plan
Assessment / Plan
Gen: remains NAD, Awake and alert
Eyes: EOMI, PERRLA, no scleral icterus.
Neck: supple.
CV: tachy irreg/irreg, +S1/S2, no m/r/g.
Resp: remains CTAB anteriorly, no rales, wheezes, or rhonchi.
Abd: +BS, soft, NT, ND
Skin: No rashes. No LE edema
Neuro: CN 2-12 intact, non-focal.
Psych: Normal mood and affect.
CXR:
1. 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
2. Previous right lower and middle lobectomies with associated right lung volume loss and mild left to right mediastinal shift.
3. Mild cardiomegaly.
4. Left IJ chemotherapy Mediport in place.
5. 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
CT Brain:
1. No CT evidence for acute intracranial hemorrhage, calvarial fracture, or scalp soft tissue hematoma.
2. Moderate-sized subacute or chronic transcortical infarct in the posteromedial right occipital lobe containing cytotoxic edema or encephalomalacia.
3. 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
4. Moderate diffuse cerebral volume loss.
5. MODERATE ACUTE LEFT SPHENOID SINUSITIS.
Failure to thrive, generalized weakness, ambulatory dysfunction with fall: at home
-also stage II sacral decubitus ulcer, POA, wound card c/s
-PT/OT
Acute on chronic hyponatremia:
-also hypokalemia (resolved) and hypotension (resolved)
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
-will discuss a dose of Samsca with nephrology
Paroxysmal atrial fibrillation with RVR and typical atrial flutter:
-with RVR overnight 01/11/24-01/12/24 cardizem gtt was started. Now off cardizem gtt and back on Cardizem CD. Toprol XL also restarted.
-rates continue to poorly controlled. Increase Toprol XL to 100mg BID.
-Cont Xarelto.
Other problems:
Recent exploratory laparotomy, partial cecectomy and appendectomy, primary repair of ventral incisional hernia by Dr. Diaz on 12/15/2023 for incarcerated ventral hernia
Chronic HFpEF: BB restarted (had been on hold for hypotension)
h/o Non-small cell lung cancer s/p R lower lobectomy and chemotherapy: Last immunotherapy was late October 2023
Multiple hepatic metastasis, bilateral adrenal nodules concerning for adrenal metastasis.
FULL/Xarelto
Anticipated Discharge: 24 - 48 hours
Subjective/Interval History
-
Date of Service: January 13, 2024
Denies CP/SOB. States she feels 'tired.'
Objective Data
-
Vital Signs:
Vital Signs
Temp Pulse Resp BP Pulse Ox
98.3 F 134 16 136/82 93
01/13/24 03:00 01/13/24 06:37 01/13/24 03:00 01/13/24 06:37 01/13/24 03:00
I&O
01/11/24 01/12/24 01/13/24
06:59 06:59 06:59
Intake Total 120 / 120 720 / 720 560 / 560
Balance 120 / 120 720 / 720 560 / 560
[2024-01-13 07:00] VITALS: BP 117/78
[2024-01-13 07:33] LABS: Blood Urea Nitrogen 14 mg/dl (7-17); Carbon Dioxide 31 mmol/L (22-30); Chloride 94 mmol/L (98-107); Estimated Creatinine Clearance 67 ml/min; Glucose 86 mg/dl (70-99); Potassium 4.4 mmol/L (3.5-5.1); Sodium 129 mmol/L (135-145); eGFR > 60.00
[2024-01-13] MEDS: LEXAPRO 10 MG PO (07:40)
[2024-01-13] MEDS: WELLBUTRIN XL (24 hour extended release) 300 MG PO (07:40)
[2024-01-13] MEDS: TOPROL XL 50 MG PO ×2 (07:40→09:30)
[2024-01-13] MEDS: SYNTHROID 137 MCG PO (07:40)
[2024-01-13] MEDS: NEURONTIN 300 MG PO ×2 (07:40→20:00)
[2024-01-13] MEDS: MAGNESIUM OXIDE 500 MG PO (07:40)
[2024-01-13] MEDS: SANTYL OINTMENT 1 APPLIC TOPICAL (07:40)
--- NOTE | 2024-01-13 08:13 | W.PN.UPDATE ---
Update Note
Progress Note Update
Primary team requesting samsca. Briefly reviewed chart, seems appropriate. Order placed for 7.5 once
--- NOTE | 2024-01-13 08:43 | W.PN.CD ---
Today's Communication / Plan
-
Agree with increasing metoprolol to 100 BID
Will also increase dilt to 180 BID
Can consider AAD (AMIODARONE) or AV node ablation + pacemaker but hope to avoid both
Impression / Plan
-
78 yo female with PMH of met lung cancer, paroxysmal A fib (and typical flutter) on xarelto, chronic HFpEF, HTN, s/p surgery 12/15/2023 incarcerated ventral hernia. We are consulted for A fib with RVR.
A fib with RVR, also hx typical atrial flutter
- No ekg on admit
- Tele all course AFib (perhaps some flutter)
- Was not on the Toprol and dilt was at lower dose than at recent discharge
- CHADS2-VASC = 5. Xarelto for OAC.
- Will increase rate control meds further
- Can consider AAD (AMIODARONE) or AV node ablation + pacemaker but hope to avoid both
Failure to thrive
Sacral decub
HTN
Chronic HFpEF, seems compensated, has been challenging
- Can develop CHASIDY with meds/overdiuresis
Mild/moderate MR
Met lung cancer
Recent abdominal surgery (12/15/2023)
Subjective:
She denies CP, palps, or dyspnea.
Data:
Echo 07/2023: EF 65-70%, Stage I DD, mild/moderate MR, mild TR, PASP 48
Cardiac meds as of 12/22/2023: Furosemide 40 po qd prn, Toprol XL 75 po BID, diltiazem 180 po BID, Xarelto 20 po qd pm
Cardiac followup: Dr. Carrillo on March 03, 2024 at 3:00 PM
Physical Exam
Vital Signs/Labs
Vital Signs
Temp Pulse Resp BP Pulse Ox
98.2 F 114 18 117/78 93
01/13/24 07:00 01/13/24 07:40 01/13/24 07:00 01/13/24 07:40 01/13/24 07:00
01/12/24 01/13/24 01/14/24
06:59 06:59 06:59
Actual Weight 58.173 kg 58.258 kg
01/12/24 02:48
01/13/24 07:08
Magnesium 1.6 mg/dl (1.6-2.3) 01/12/24 02:48
01/12/24
06:46
Ysh-Z-Gkykiftuixu Pept 1490
LAB Results
01/12/24 01/12/24
02:56 06:46
Troponin I Cancelled < 0.012
Physical Exam
Constitutional: No acute distress
EENT: Anicteric
Cardiovascular: Pedal edema is absent, Rhythm/rate is irregular and S1S2 is normal
Respiratory: Respiratory effort normal and Lungs clear to auscul. (decrease r side)
GI: Soft and Non tender
Neuro/Psych: Alert
Data Reviewed
-
Date of Service: January 13, 2024
[2024-01-13] MEDS: SAMSCA 7.5 MG PO (09:30)
[2024-01-13 11:00] VITALS: BP 121/74
[2024-01-13 15:00] VITALS: BP 128/74
[2024-01-13 15:55] VITALS: BP 128/74
[2024-01-13] MEDS: XARELTO 20 MG PO (17:00)
[2024-01-13] MEDS: TYLENOL 1000 MG PO (18:11)
[2024-01-13] MEDS: TOPROL XL 100 MG PO (20:00)
[2024-01-13] MEDS: CARDIZEM CD 180 MG PO (20:01)
[2024-01-13] MEDS: ULTRAM 25 MG PO (20:43)
[2024-01-13 22:50] VITALS: BP 114/79
[2024-01-14 03:45] VITALS: BP 120/74
[2024-01-14 07:00] VITALS: BP 141/79
[2024-01-14 07:47] LABS: Blood Urea Nitrogen 14 mg/dl (7-17); Calcium 8.9 mg/dl (8.4-10.2); Carbon Dioxide 33 mmol/L (22-30); Chloride 96 mmol/L (98-107); Estimated Creatinine Clearance 57 ml/min; Glucose 81 mg/dl (70-99); Potassium 4.2 mmol/L (3.5-5.1); Sodium 132 mmol/L (135-145); eGFR > 60.00
[2024-01-14] MEDS: SYNTHROID 137 MCG PO (08:14)
[2024-01-14] MEDS: NEURONTIN 300 MG PO ×2 (08:14→19:49)
[2024-01-14] MEDS: LEXAPRO 10 MG PO (08:14)
[2024-01-14] MEDS: MAGNESIUM OXIDE 500 MG PO (08:14)
[2024-01-14] MEDS: SANTYL OINTMENT 1 APPLIC TOPICAL (08:15)
[2024-01-14] MEDS: TOPROL XL 100 MG PO ×2 (08:15→19:48)
[2024-01-14] MEDS: WELLBUTRIN XL (24 hour extended release) 300 MG PO (08:15)
[2024-01-14] MEDS: CARDIZEM CD 180 MG PO ×2 (08:15→19:49)
--- NOTE | 2024-01-14 08:45 | W.PN.CD ---
Today's Communication / Plan
-
- We have restarted and escalated her rate control meds. Telemetry now shows HR 90-105.
- increased meds yesterday (Jan 12) -> no changes today
Impression / Plan
-
Impression: 78 yo female with PMH of met lung cancer, paroxysmal A fib (and typical flutter) on Xarelto, chronic HFpEF, HTN, s/p surgery 12/15/2023 incarcerated ventral hernia admitted with weakness, electrolyte abnormalities, and wounds. We are
consulted for recurrent A fib with RVR.
A fib with RVR, also hx typical atrial flutter
- We have restarted and escalated her rate control meds. Telemetry now shows HR 90-105.
- She denies palpitations
- CHADS2-VASC = 5. Xarelto for OAC.
- Dr. Philip increased meds yesterday (Jan 12) -> no changes today
- Can consider AAD (AMIODARONE) or AV node ablation + pacemaker but hope to avoid both
Failure to thrive
Sacral decub
HTN
Chronic HFpEF, seems compensated, has been challenging
Mild/moderate MR
Met lung cancer
Recent abdominal surgery (12/15/2023)
Subjective:
She denies CP, palps, or dyspnea.
Data:
Echo 07/2023: EF 65-70%, Stage I DD, mild/moderate MR, mild TR, PASP 48
Cardiac meds as of 12/22/2023: Furosemide 40 po qd prn, Toprol XL 75 po BID, diltiazem 180 po BID, Xarelto 20 po qd pm
Cardiac followup: Dr. Carrillo on March 03, 2024 at 3:00 PM
Physical Exam
Vital Signs/Labs
Vital Signs
Temp Pulse Resp BP Pulse Ox
36.4 C 98 18 141/79 93
01/14/24 07:00 01/14/24 08:15 01/14/24 07:00 01/14/24 08:15 01/14/24 07:00
01/13/24 01/14/24 01/15/24
06:59 06:59 06:59
Actual Weight 128 lb 7 oz
01/12/24 02:48
01/14/24 06:34
Magnesium 1.6 mg/dl (1.6-2.3) 01/12/24 02:48
01/12/24
06:46
Utp-O-Tjjpdhkznes Pept 1490
LAB Results
01/12/24 01/12/24
02:56 06:46
Troponin I Cancelled < 0.012
Physical Exam
Constitutional: No acute distress
EENT: Anicteric and Moist mucous membranes
Cardiovascular: Pedal edema is absent, Systolic murmur absent, Diastolic murmur absent and Rhythm/rate is irregular
Respiratory: Respiratory effort normal
GI: Soft, Distention absent, Non tender and Normal bowel sounds
Neuro/Psych: Alert
Data Reviewed
-
Date of Service: January 14, 2024
EKG: Other (tele as above)
[2024-01-14 11:00] VITALS: BP 129/78
--- NOTE | 2024-01-14 13:58 | W.PN.HOSP.TC ---
Today's Communication/Plan
-
see bold
Assessment / Plan
Assessment / Plan
Gen: continues to remain NAD, Awake and alert
Eyes: EOMI, PERRLA, no scleral icterus.
Neck: supple.
CV: remains tachy irreg/irreg, +S1/S2, no m/r/g.
Resp: continues to remain CTAB anteriorly, no rales, wheezes, or rhonchi.
Abd: +BS, soft, NT, ND
Skin: No rashes. No LE edema
Neuro: CN 2-12 intact, non-focal.
Psych: Normal mood and affect.
CXR:
1. 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
2. Previous right lower and middle lobectomies with associated right lung volume loss and mild left to right mediastinal shift.
3. Mild cardiomegaly.
4. Left IJ chemotherapy Mediport in place.
5. 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
CT Brain:
1. No CT evidence for acute intracranial hemorrhage, calvarial fracture, or scalp soft tissue hematoma.
2. Moderate-sized subacute or chronic transcortical infarct in the posteromedial right occipital lobe containing cytotoxic edema or encephalomalacia.
3. 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
4. Moderate diffuse cerebral volume loss.
5. MODERATE ACUTE LEFT SPHENOID SINUSITIS.
Failure to thrive, generalized weakness, ambulatory dysfunction with fall: at home
-also stage II sacral decubitus ulcer, POA, wound card c/s
-PT/OT
Acute on chronic hyponatremia:
-also hypokalemia (resolved) and hypotension (resolved)
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
-s/p Samsca on 01/13/24
Paroxysmal atrial fibrillation with RVR and typical atrial flutter:
-with RVR overnight 01/11/24-01/12/24 cardizem gtt was started. Now off cardizem gtt and back on Cardizem CD. Toprol XL also restarted.
-Toprol XL and Cardizem increased
-Cont Xarelto.
Other problems:
Recent exploratory laparotomy, partial cecectomy and appendectomy, primary repair of ventral incisional hernia by Dr. Diaz on 12/15/2023 for incarcerated ventral hernia
Chronic HFpEF: BB restarted (had been on hold for hypotension)
h/o Non-small cell lung cancer s/p R lower lobectomy and chemotherapy: Last immunotherapy was late October 2023
Multiple hepatic metastasis, bilateral adrenal nodules concerning for adrenal metastasis.
FULL/Xarelto
Medically cleared for discharge, case management aware.
Anticipated Discharge: Today
Subjective/Interval History
-
Date of Service: January 14, 2024
No new complaints.
Objective Data
-
Labs:
Laboratory Results
01/14/24
06:34
Sodium 132 L
Potassium 4.2
Chloride 96 L
Carbon Dioxide 33 H
BUN 14
Creatinine 0.7
Glucose 81
Calcium 8.9
Vital Signs:
Vital Signs
Temp Pulse Resp BP Pulse Ox
97.1 F 112 18 129/78 94
01/14/24 11:00 01/14/24 11:00 01/14/24 11:00 01/14/24 11:00 01/14/24 11:00
I&O
01/13/24 01/14/24 01/15/24
06:59 06:59 06:59
Intake Total 560 / 560 720 / 720
Balance 560 / 560 720 / 720
[2024-01-14 14:09] VITALS: BMI 21.6
[2024-01-14 15:00] VITALS: BP 118/72
--- NOTE | 2024-01-14 15:39 | CM ---
Reviewed chart, spoke with attending who stated that patient is medically stable and can be cleared for discharge.
Placed a call to [facility] however had to leave a voice mail message for Nallely in admissions. Relayed that patient is discharged and requested return call to clarify if bed is available.
Will await return call.
Plan: Case management will continue to follow and assist with discharge planning. [facility] when bed is available.
[2024-01-14] MEDS: XARELTO 20 MG PO (17:42)
[2024-01-14 19:05] VITALS: BP 121/69
[2024-01-14] MEDS: ULTRAM 25 MG PO (21:53)
[2024-01-14 23:05] VITALS: BP 122/72
[2024-01-15 03:15] VITALS: BP 130/67
[2024-01-15 06:00] VITALS: BMI 21.5
[2024-01-15 06:59] LABS: Blood Urea Nitrogen 13 mg/dl (7-17); Calcium 8.9 mg/dl (8.4-10.2); Carbon Dioxide 35 mmol/L (22-30); Chloride 96 mmol/L (98-107); Estimated Creatinine Clearance 57 ml/min; Glucose 84 mg/dl (70-99); Potassium 4.3 mmol/L (3.5-5.1); Sodium 132 mmol/L (135-145); eGFR > 60.00
[2024-01-15 07:00] VITALS: BP 125/85
--- NOTE | 2024-01-15 07:42 | W.PN.CD ---
Today's Communication / Plan
-
Would continue current doses of avnodal agent
would discharge off lasix with ongoing weight loss due to poor po intake
will sign off. Please call back with questions
Impression / Plan
-
Impression: 78 yo female with PMH of met lung cancer, paroxysmal A fib (and typical flutter) on Xarelto, chronic HFpEF, HTN, s/p surgery 12/15/2023 incarcerated ventral hernia admitted with weakness, electrolyte abnormalities, and wounds. We are
consulted for recurrent A fib with RVR.
A fib with RVR, also hx typical atrial flutter
- We have restarted and escalated her rate control meds. Telemetry now shows HR 90-105.
- She denies palpitations
- CHADS2-VASC = 5. Xarelto for OAC.
- Dr. Philip increased meds yesterday (Jan 12) -> Rates stable today, would continue current doses
Failure to thrive
Sacral decub
HTN
Chronic HFpEF, seems compensated, has been challenging
-Weight continues to fall off lasix due to poor po intake, would continue off furosemide in this setting.
Mild/moderate MR
Met lung cancer
Recent abdominal surgery (12/15/2023)
Subjective:
She denies CP, palps, or dyspnea.
Data:
Echo 07/2023: EF 65-70%, Stage I DD, mild/moderate MR, mild TR, PASP 48
Cardiac meds as of 12/22/2023: Furosemide 40 po qd prn, Toprol XL 75 po BID, diltiazem 180 po BID, Xarelto 20 po qd pm
Cardiac followup: Dr. Carrillo on March 03, 2024 at 3:00 PM
Physical Exam
Vital Signs/Labs
Vital Signs
Temp Pulse Resp BP Pulse Ox
97.7 F 86 18 130/67 92
01/15/24 03:15 01/15/24 03:15 01/15/24 03:15 01/15/24 03:15 01/15/24 03:15
01/14/24 01/15/24 01/16/24
06:59 06:59 06:59
Actual Weight 56.812 kg
01/12/24 02:48
01/15/24 06:14
Magnesium 1.6 mg/dl (1.6-2.3) 01/12/24 02:48
01/12/24
06:46
Cbv-T-Oduuwkymykh Pept 1490
Physical Exam
Constitutional: No acute distress
Cardiovascular: Pedal edema is absent, JVD pressure is normal, Systolic murmur absent and Rhythm/rate is irregular
Respiratory: Respiratory effort normal, Lungs clear to auscul., Wheeze Absent, Crackles Absent and Rhonchi Absent
Neuro/Psych: AO x 3
Data Reviewed
-
Date of Service: January 15, 2024
EKG: Other (tele with adequate rate control)
Medical Tests (PFT, Pathology etc): Discussed with Physician (Dr Rivers, continue current av sameer agents, would not resume lasix)
[2024-01-15] MEDS: SANTYL OINTMENT 1 APPLIC TOPICAL (07:46)
[2024-01-15] MEDS: SYNTHROID 137 MCG PO (07:46)
[2024-01-15] MEDS: MAGNESIUM OXIDE 500 MG PO (07:46)
[2024-01-15] MEDS: TOPROL XL 100 MG PO (07:47)
[2024-01-15] MEDS: NEURONTIN 300 MG PO (07:48)
[2024-01-15] MEDS: LEXAPRO 10 MG PO (07:48)
[2024-01-15] MEDS: WELLBUTRIN XL (24 hour extended release) 300 MG PO (07:48)
--- NOTE | 2024-01-15 09:02 | CM ---
Reviewed chart, spoke with Nallely in admissions at [facility] who confirmed bed availability for patient today. # for report [phone] and fax [phone]. No Authorization is needed for transfer.
Will update attending that bed is available. Will complete medical necessity and transfer sheet.
Plan: Case management will continue to follow and assist with discharge planning. [facility] when stable.
--- NOTE | 2024-01-15 09:09 | W.PN.HOSP.TC ---
Today's Communication/Plan
-
d/c
Assessment / Plan
Assessment / Plan
Gen: NAD, Awake and alert
Eyes: remains EOMI, PERRLA, no scleral icterus.
Neck: supple.
CV: irreg/irreg, +S1/S2, no m/r/g.
Resp: CTAB anteriorly, no rales, wheezes, or rhonchi.
Abd: remains +BS, soft, NT, ND
Skin: No rashes. No LE edema
Neuro: CN 2-12 intact, non-focal.
Psych: Normal mood and affect.
CXR:
1. 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
2. Previous right lower and middle lobectomies with associated right lung volume loss and mild left to right mediastinal shift.
3. Mild cardiomegaly.
4. Left IJ chemotherapy Mediport in place.
5. 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
CT Brain:
1. No CT evidence for acute intracranial hemorrhage, calvarial fracture, or scalp soft tissue hematoma.
2. Moderate-sized subacute or chronic transcortical infarct in the posteromedial right occipital lobe containing cytotoxic edema or encephalomalacia.
3. 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
4. Moderate diffuse cerebral volume loss.
5. MODERATE ACUTE LEFT SPHENOID SINUSITIS.
Failure to thrive, generalized weakness, ambulatory dysfunction with fall: at home
-also stage II sacral decubitus ulcer, POA, wound card c/s
-PT/OT
Acute on chronic hyponatremia:
-also hypokalemia (resolved) and hypotension (resolved)
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
-s/p Samsca on 01/13/24
Paroxysmal atrial fibrillation with RVR and typical atrial flutter:
-with RVR overnight 01/11/24-01/12/24 cardizem gtt was started. Now off cardizem gtt and back on Cardizem CD. Toprol XL also restarted.
-Toprol XL and Cardizem increased
-Cont Xarelto.
Other problems:
Recent exploratory laparotomy, partial cecectomy and appendectomy, primary repair of ventral incisional hernia by Dr. Diaz on 12/15/2023 for incarcerated ventral hernia
Chronic HFpEF: BB restarted (had been on hold for hypotension)
h/o Non-small cell lung cancer s/p R lower lobectomy and chemotherapy: Last immunotherapy was late October 2023
Multiple hepatic metastasis, bilateral adrenal nodules concerning for adrenal metastasis.
FULL/Xarelto
Remains medically cleared for discharge since 01/14/24, case management aware.
Total time spent on d/c = 31 min. This included today's physical exam, progress note, review of laboratory and diagnostic data, preparation of discharge documents and prescriptions, and discussions about the pt's hospital course and discharge plan
with the patient and other medical billing assistant involved in the patient's care.
Anticipated Discharge: Today
Subjective/Interval History
-
Date of Service: January 15, 2024
No new complaints.
Objective Data
-
Labs:
Laboratory Results
01/15/24
06:14
Sodium 132 L
Potassium 4.3
Chloride 96 L
Carbon Dioxide 35 H
BUN 13
Creatinine 0.7
Glucose 84
Calcium 8.9
Vital Signs:
Vital Signs
Temp Pulse Resp BP Pulse Ox
97.7 F 109 18 125/85 92
01/15/24 03:15 01/15/24 07:47 01/15/24 03:15 01/15/24 07:47 01/15/24 03:15
I&O
01/14/24 01/15/24 01/16/24
06:59 06:59 06:59
Intake Total 720 / 720 360 / 360
Balance 720 / 720 360 / 360
[2024-01-15] MEDS: CARDIZEM CD 180 MG PO (09:15)
[2024-01-15 11:00] VITALS: BP 125/73
[2024-01-15 15:00] VITALS: BP 120/68
[2024-01-15] MEDS: NON-FORMULARY ITEM 1 UNIT TOPICAL ×2 (15:55)
--- NOTE | 2024-01-15 17:04 | PTCARENOTE ---
This nurse replaced pt. Butrans patch. This nurse and another nurse witnessed the waste. Pharmacist on the floor was notified and proper documentation was complete. Patch was wasted in narcotics bin. New patch placed on Right outer thigh, initialed
and dated.
--- NOTE | 2024-01-16 16:49 | W.DCSUMMARY ---
Discharge Summary
Discharge Data
Date of Admission: 01/11/24
Date of Discharge: 01/15/24
-
Pending Results: No
Hospital Course
Primary diagnoses:
Failure to thrive, generalized weakness, ambulatory dysfunction with fall at home
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
Paroxysmal atrial fibrillation with rapid ventricular response and typical atrial flutter
Secondary diagnoses:
Hypokalemia
Stage II sacral decubitus ulcer
Recent exploratory laparotomy, partial cecectomy and appendectomy, primary repair of ventral incisional hernia by Dr. Diaz on 12/15/2023 for incarcerated ventral hernia
Chronic heart failure with preserved ejection fraction
h/o Non-small cell lung cancer s/p right lower lobectomy and chemotherapy
Multiple hepatic metastasis, bilateral adrenal nodules concerning for adrenal metastasis
Consultants:
Cardiology
Imaging:
CXR:
1. 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
2. Previous right lower and middle lobectomies with associated right lung volume loss and mild left to right mediastinal shift.
3. Mild cardiomegaly.
4. Left IJ chemotherapy Mediport in place.
5. 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
CT Brain:
1. No CT evidence for acute intracranial hemorrhage, calvarial fracture, or scalp soft tissue hematoma.
2. Moderate-sized subacute or chronic transcortical infarct in the posteromedial right occipital lobe containing cytotoxic edema or encephalomalacia.
3. 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
4. Moderate diffuse cerebral volume loss.
5. MODERATE ACUTE LEFT SPHENOID SINUSITIS.
70-year-old female who presented with weakness and a fall at home as outlined in H&P done on admission. Hospital course by problem list:
Failure to thrive, generalized weakness, ambulatory dysfunction with fall at home: Patient was seen in consultation by physical therapy and Occupational Therapy. On [facility]
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 She received Samsca on 01/13/24.
Paroxysmal atrial fibrillation with rapid ventricular response and typical atrial flutter: The patient had RVR overnight 01/11/24-01/12/24 and a cardizem gtt was started. Patient's Cardizem drip was weaned to off. She was placed back to on a
Cardizem CD as well as her Toprol-XL. These doses were increased. Her Xarelto was continued.
Discharge Plan
-
Patient Disposition: Long Term/SNF
Discharge Diagnosis/Procedures: Failure to thrive, generalized weakness, ambulatory dysfunction with fall, Acute on chronic hyponatremia, Paroxysmal atrial fibrillation with rapid ventricular response and typical atrial flutter
Condition: Good
Diet: Low Cholesterol
Additional Diets: Fluid restrict to 1200 cc/day
Activity: With assistance
Driving Restrictions: No driving
Bathing Restrictions: None
Blood Work: BMP and CBC in 1 week
Specialty Instructions: Weigh Daily- Call MD for wt gain/loss 3 lbs overnight/5 lbs in 1 week
Activity Restrictions/Additional Instructions:
Wound Care Instructions
Sacral/coccyx-clean with saline or soap and water, miconazole powder prn yeasty periwound skin followed by no sting barrier wipe, Santyl ointment, silicone border foam, change daily and prn drainage (add alginate prn large amount of drainage).
Air mattress.
Turning schedule
elevate heels off bed with pillow/s
Pressure redistributing chair cushion (i.e. Air chair cushion).
Follow up at wound care center call for an appointment.
Referrals:
PRIVATE,PHYSICIAN [Family Provider] - in less than 1 week
Prescriptions:
New
metoprolol succinate 100 mg Tablet Extended Release 24 Hr
100 mg PO BID Qty: 0 0RF
Continued
prochlorperazine maleate 10 mg Tablet
10 mg PO QID PRN (Reason: nausea/vomiting)
Hold Instructions: Resume on 08/25/23. Discuss with your primary care provider before deciding to resume this medication.
acetaminophen 650 mg Tablet Extended Release
650 mg PO DAILY
gabapentin 100 mg Capsule
300 mg PO BID
escitalopram oxalate 10 mg Tablet
10 mg PO DAILY
bupropion HCl 300 mg Tablet Extended Release 24 Hr
300 mg PO DAILY
magnesium oxide 500 mg Tablet
500 mg PO DAILY Qty: 30 0RF
levothyroxine 137 mcg Tablet
137 mcg PO DAILY@0730 Qty: 30 0RF
Xarelto 20 mg Tablet
20 mg PO QPM Qty: 30 0RF
diltiazem HCl 180 mg Capsule,Extended Release 24hr
180 mg PO BID Qty: 60 0RF
polyethylene glycol 3350 [HealthyLax] 17 gram powder in packet
17 g PO DAILY PRN (Reason: Constipation)
Discontinued
furosemide 40 mg tablet
40 mg PO DAILY
metoprolol succinate 25 mg Tablet Extended Release 24 Hr
75 mg PO BID Qty: 60 0RF
No Action
buprenorphine [Butrans] 10 mcg/hour Patch Weekly
1 patch TRANSDERMAL FR
Discharge Orders:
Discharge Patient (As Directed); Ordered 01/15/24
Ordered By: Silvio Rivers
Discharge Date and Time
Discharge Date/Time: 01/15/24 17:22
Print Language: ARMENIAN
== END 2024-01-15 17:22 | DRG 643 ==
LOC: 3 WEST ACU 00:50
PROVIDERS: Nurse Practitioner Family; Physician Assistant; ADMITTING PHYSICIAN Internal Medicine; ATTENDING PHYSICIAN Internal Medicine; CONSULT PHYSICIAN Internal Medicine Cardiovascular Disease; EMERGENCY PHYSICIAN Student in an Organized Health Care Education/Training Program
DX: E22.2 Syndrome of inappropriate secretion of antidiuretic hormone (principal); E43 Unspecified severe protein-calorie malnutrition; L89.153 Pressure ulcer of sacral region, stage 3; C34.90 Malignant neoplasm of unspecified part of unspecified bronchus or lung; I50.32 Chronic diastolic (congestive) heart failure; I48.92 Unspecified atrial flutter; C78.7 Secondary malignant neoplasm of liver and intrahepatic bile duct; I48.3 Typical atrial flutter; Z87.891 Personal history of nicotine dependence; E87.6 Hypokalemia; R62.7 Adult failure to thrive; I11.0 Hypertensive heart disease with heart failure; L89.621 Pressure ulcer of left heel, stage 1; Z68.21 Body mass index [BMI] 21.0-21.9, adult; I48.0 Paroxysmal atrial fibrillation; Z79.01 Long term (current) use of anticoagulants; L89.616 Pressure-induced deep tissue damage of right heel
CPT/HCPCS: 70450; 71046; 80048; 80053; 81003; 81015; 83735; 83880; 83930; 83935; 84300; 84484; 85025; 85027; 87086; 93005; 96360; 97162; 97166; 97530; 99285

== ENCOUNTER → 2024-01-19 11:42 | Outpatient (REF) | payer MEDICARE, OTHER, SELFPAY ==
[2024-01-19 12:00] LABS: % Basophils 0.2 % (0-2); % Eosinophils 0.3 % (0-6); % Immature Granulocytes 0.6 % (0-0.5); % Lymphocytes 8.7 % (20.5-51.1); % Monocytes 11.6 % (1.7-9.3); % Neutrophils 78.6 % (42.2-75.2); Absolute Immature Granulocytes 0.1 10^3/uL (0-0.05); Absolute Lymphocytes 0.9 10^3/uL (1.2-3.4); Absolute Monocytes 1.2 10^3/uL (0.1-0.6); Absolute Neutrophils 8.1 10^3/uL (1.4-6.5); Hematocrit 35.7 % (37.0-47.0); Hemoglobin 11.5 g/dL (12.0-16.0); Mean Corp Hgb Conc. 32.2 g/dL (33.0-37.0); Mean Corpuscular Hgb 28.8 pg (27.0-31.0); Mean Corpuscular Volume 89.3 fL (81.0-99.0); Mean Platelet Volume 9.7 fL (7.4-10.4); Nucleated Red Blood Cells % 0 %; Platelet Count 386 10^3/uL (130-400); Red Cell Dist. Width 16.4 % (11.5-14.5); White Blood Cell Count 10.3 10^3/uL (4.8-10.8)
[2024-01-19 12:39] LABS: ALT (SGPT) 11 U/L (0-35); AST (SGOT) 50 U/L (14-36); Albumin 2.9 g/dl (3.5-5.0); Alkaline Phosphatase 402 U/L (38-126); Blood Urea Nitrogen 22 mg/dl (7-17); Calcium 8.8 mg/dl (8.4-10.2); Carbon Dioxide 32 mmol/L (22-30); Chloride 95 mmol/L (98-107); Glucose 76 mg/dl (70-99); Potassium 4.5 mmol/L (3.5-5.1); Sodium 131 mmol/L (135-145); Total Bilirubin 0.6 mg/dl (0.2-1.3); Total Protein 5.5 g/dl (6.3-8.2); eGFR > 60.00
== END ==
LOC: OLABP 11:42
PROVIDERS: ATTENDING PHYSICIAN Family Medicine
DX: J90 Pleural effusion, not elsewhere classified (principal); R62.7 Adult failure to thrive; M62.81 Muscle weakness (generalized); R26.2 Difficulty in walking, not elsewhere classified; W19.XXXD Unspecified fall, subsequent encounter; L89.621 Pressure ulcer of left heel, stage 1; L89.616 Pressure-induced deep tissue damage of right heel; L89.152 Pressure ulcer of sacral region, stage 2; E87.6 Hypokalemia; I42.9 Cardiomyopathy, unspecified; I50.32 Chronic diastolic (congestive) heart failure; I48.19 Other persistent atrial fibrillation; E03.9 Hypothyroidism, unspecified; M51.34 Other intervertebral disc degeneration, thoracic region; C34.90 Malignant neoplasm of unspecified part of unspecified bronchus or lung; C78.7 Secondary malignant neoplasm of liver and intrahepatic bile duct; F41.9 Anxiety disorder, unspecified; F32.9 Major depressive disorder, single episode, unspecified
CPT/HCPCS: 36415; 80053; 85025

== ENCOUNTER → 2024-01-22 11:14 | Outpatient (REF) | payer OTHER, MEDICARE, SELFPAY ==
[2024-01-22 11:32] LABS: Hematocrit 36.8 % (37.0-47.0); Hemoglobin 11.8 g/dL (12.0-16.0); Mean Corp Hgb Conc. 32.1 g/dL (33.0-37.0); Mean Corpuscular Hgb 28.9 pg (27.0-31.0); Mean Corpuscular Volume 90.2 fL (81.0-99.0); Platelet Count 384 10^3/uL (130-400); Red Blood Cell Count 4.08 10^6/uL (4.20-5.40); Red Cell Dist. Width 16.4 % (11.5-14.5); White Blood Cell Count 12.2 10^3/uL (4.8-10.8)
[2024-01-22 12:03] LABS: Blood Urea Nitrogen 21 mg/dl (7-17); Calcium 8.9 mg/dl (8.4-10.2); Carbon Dioxide 32 mmol/L (22-30); Chloride 94 mmol/L (98-107); Glucose 88 mg/dl (70-99); Potassium 4.5 mmol/L (3.5-5.1); Sodium 132 mmol/L (135-145); eGFR > 60.00
== END ==
LOC: OLABP 11:14
PROVIDERS: ATTENDING PHYSICIAN Family Medicine
DX: J90 Pleural effusion, not elsewhere classified (principal); R62.7 Adult failure to thrive; M62.81 Muscle weakness (generalized); R26.2 Difficulty in walking, not elsewhere classified; W19.XXXD Unspecified fall, subsequent encounter; I48.19 Other persistent atrial fibrillation; E03.9 Hypothyroidism, unspecified; L89.152 Pressure ulcer of sacral region, stage 2; I50.32 Chronic diastolic (congestive) heart failure; C78.7 Secondary malignant neoplasm of liver and intrahepatic bile duct; F41.9 Anxiety disorder, unspecified; F32.9 Major depressive disorder, single episode, unspecified; C34.90 Malignant neoplasm of unspecified part of unspecified bronchus or lung
CPT/HCPCS: 36415; 80048; 85027